=== PATIENT | female | born 1945 ===

== ENCOUNTER 2020-02-16 14:19 | Outpatient (REF) | payer OTHER, SELFPAY | END 2020-02-16 14:20 | disposition home or self-care (01) | LOC: HO.LAB 14:19 | PROVIDERS: Visit Provider Internal Medicine | DX: Z20.828 Contact with and (suspected) exposure to other viral communicable diseases (principal) | CPT/HCPCS: C9803; U0003 ==

== ENCOUNTER 2020-07-11 14:28 | Outpatient (REF) | payer OTHER, SELFPAY ==
[2020-07-11 14:51] LABS: COVID-19 Test Negative (Negative)
== END 2020-07-11 14:29 | disposition home or self-care (01) ==
LOC: HO.LAB 14:28
PROVIDERS: Visit Provider Internal Medicine
DX: Z20.822 Contact with and (suspected) exposure to COVID-19 (principal)
CPT/HCPCS: 36415; 87635; C9803

== ENCOUNTER 2020-10-09 11:08 | Outpatient (REF) | payer MEDICARE, SELFPAY ==
[2020-10-09 12:28] LABS: MANUAL DIFF FLAG NO
[2020-10-09 12:40] LABS: Basophils Percent Auto 0.6 % (0-2); Eosinophils Absolute Auto 0.1 X10*3/uL (0.0-0.4); Eosinophils Percent Auto 1.4 % (0-4); Hematocrit 41.1 % (37-47); Hemoglobin 12.8 g/dl (12.0-16.0); Imm Gran Abs Auto 0.01 X10*3/uL (0.00-0.03); Imm Gran Pct Auto 0.2 % (0.0-0.4); Lymphocytes Absolute Auto 1.8 X10*3/uL (1.2-4.9); Lymphocytes Percent Auto 36.5 % (20-40); Mean Corpuscular HGB Conc 31.1 g/dl (31.0-35.0); Mean Corpuscular Hemoglobin 29.7 pg (27.0-33.0); Mean Corpuscular Volume 95.4 fL (80-98); Mean Platelet Volume 10.2 fL (9.4-12.3); Monocytes Absolute Auto 0.5 X10*3/uL (0.1-1.2); Monocytes Percent Auto 10.5 % (2-11); Neutrophils Absolute Auto 2.5 X10*3/uL (2.0-8.3); Neutrophils Percent Auto 50.8 % (45-73); Platelet Count 260 X10*3/uL (160-400); Red Blood Count 4.31 X10*6/uL (4.20-5.50); Red Cell Distribution Width 12.3 % (11.0-16.0); White Blood Count 4.9 X10*3/uL (4.8-10.8)
== END 2020-10-09 11:09 | disposition home or self-care (01) ==
LOC: HO.LAB 11:08
PROVIDERS: Visit Provider Internal Medicine Pulmonary Disease
DX: Z91.09 Other allergy status, other than to drugs and biological substances (principal); J45.50 Severe persistent asthma, uncomplicated; Z79.899 Other long term (current) drug therapy
CPT/HCPCS: 36415; 82785; 85025; 86003; 99202

== ENCOUNTER 2020-11-12 09:44 | Outpatient (REF) | payer MEDICARE, SELFPAY ==
--- NOTE | 2020-11-12 14:57 | PFT_ITS ---
Forced vital capacity, FEV1, KKW37-90, and MVV are all markedly decreased. Post bronchodilator therapy, there is significant improvement in FVC, [id number], MVV, and FEV1. LUNG VOLUMES: The patient was not able to perform adequate maneuvers. Diffusion capacity is moderately decreased. CONCLUSION: Severe obstructive airway disorder. Partial reversibility after bronchodilator therapy is noted. Findings consistent with asthma/COPD overlap syndrome. MD KEVIN Britt/JACQUELYN / [id number]
== END 2020-11-12 09:45 | disposition home or self-care (01) ==
LOC: HO.RESP 09:44
PROVIDERS: Visit Provider Internal Medicine Pulmonary Disease
DX: J45.50 Severe persistent asthma, uncomplicated (principal); Z91.09 Other allergy status, other than to drugs and biological substances
CPT/HCPCS: 94060; 94729; 99212

== ENCOUNTER 2020-12-03 11:44 | Outpatient (REF) | payer MEDICARE, SELFPAY | END 2020-12-03 11:45 | disposition home or self-care (01) | LOC: HO.LAB 11:44 | PROVIDERS: Visit Provider Internal Medicine | DX: Z20.822 Contact with and (suspected) exposure to COVID-19 (principal) | CPT/HCPCS: C9803; U0003; U0005 ==

== ENCOUNTER 2020-12-13 11:59 | Outpatient (REF) | payer MEDICARE, SELFPAY | END 2020-12-13 12:00 | disposition home or self-care (01) | LOC: HO.MDS 11:59 | PROVIDERS: Visit Provider Internal Medicine Pulmonary Disease | DX: J45.50 Severe persistent asthma, uncomplicated (principal) | CPT/HCPCS: 96372; J2357 ==

== ENCOUNTER 2020-12-30 | Outpatient (REF) | payer MEDICARE, SELFPAY | END 2020-12-30 00:01 | disposition home or self-care (01) | LOC: CF | PROVIDERS: Visit Provider Internal Medicine Pulmonary Disease | DX: L29.9 Pruritus, unspecified (principal) | CPT/HCPCS: 99212 ==

== ENCOUNTER → 2021-02-12 11:25 | Outpatient (BNVA) | payer MEDICARE, SELFPAY | PROVIDERS: PCP Internal Medicine; Visit Provider Internal Medicine Pulmonary Disease | DX: J45.50 Severe persistent asthma, uncomplicated (principal) | CPT/HCPCS: 99212 ==

== ENCOUNTER 2021-09-23 11:31 | Outpatient (REF) | payer OTHER, SELFPAY ==
[2021-09-23 11:52] LABS: MANUAL DIFF FLAG NO
[2021-09-23 12:11] LABS: Basophils Percent Auto 0.6 % (0-2); Eosinophils Absolute Auto 0.1 X10*3/uL (0.0-0.4); Eosinophils Percent Auto 2.4 % (0-4); Hematocrit 41.4 % (37.0-47.0); Imm Gran Abs Auto 0.01 X10*3/uL (0.00-0.03); Imm Gran Pct Auto 0.2 % (0.0-0.4); Lymphocytes Absolute Auto 2.1 X10*3/uL (1.2-4.9); Lymphocytes Percent Auto 41.4 % (20-40); Mean Corpuscular HGB Conc 31.4 g/dl (31.0-35.0); Mean Corpuscular Hemoglobin 30.1 pg (27.0-33.0); Mean Corpuscular Volume 95.8 fL (80.0-98.0); Mean Platelet Volume 10.1 fL (9.4-12.3); Monocytes Absolute Auto 0.7 X10*3/uL (0.1-1.2); Neutrophils Absolute Auto 2.1 x10*3/uL (2.0-8.3); Neutrophils Percent Auto 42.4 % (45-73); Platelet Count 252 X10*3/uL (160-400); Red Blood Count 4.32 X10*6/uL (4.20-5.50); Red Cell Distribution Width 12.8 % (11.0-16.0)
== END 2021-09-23 11:32 | disposition home or self-care (01) ==
LOC: HO.LAB 11:31
PROVIDERS: Visit Provider Internal Medicine Pulmonary Disease
DX: J45.50 Severe persistent asthma, uncomplicated (principal); Z91.09 Other allergy status, other than to drugs and biological substances; Z79.899 Other long term (current) drug therapy
CPT/HCPCS: 36415; 85025; 86003; 99212

== ENCOUNTER 2021-10-21 09:18 | Outpatient (REF) | payer OTHER, SELFPAY | END 2021-10-21 09:19 | disposition home or self-care (01) | LOC: HO.MDS 09:18 | PROVIDERS: Visit Provider Internal Medicine Pulmonary Disease | DX: J82.83 Eosinophilic asthma (principal) | CPT/HCPCS: 96372; J2182 ==

== ENCOUNTER 2021-11-18 09:31 | Outpatient (REF) | payer OTHER, SELFPAY | END 2021-11-18 09:32 | disposition home or self-care (01) | LOC: HO.MDS 09:31 | PROVIDERS: Visit Provider Internal Medicine Pulmonary Disease | DX: J82.83 Eosinophilic asthma (principal) | CPT/HCPCS: 96372; J2182 ==

== ENCOUNTER 2021-12-16 09:26 | Outpatient (REF) | payer OTHER, SELFPAY | END 2021-12-16 09:27 | disposition home or self-care (01) | LOC: HO.MDS 09:26 | PROVIDERS: Visit Provider Internal Medicine Pulmonary Disease | DX: J82.83 Eosinophilic asthma (principal) | CPT/HCPCS: 96372; J2182 ==

== ENCOUNTER 2022-01-01 13:46 | Outpatient (REF) | payer OTHER, SELFPAY ==
[2022-01-01 14:42] LABS: Influenza A PCR NEGATIVE (Negative); Influenza B PCR NEGATIVE (Negative); Resp Syncy Virus RNA Qual PCR NEGATIVE (Negative); SARS COV2 PCR INHOUSE POSITIVE (Negative)
== END 2022-01-01 13:47 | disposition home or self-care (01) ==
LOC: HO.LNP 13:46
PROVIDERS: Visit Provider Internal Medicine
DX: R09.89 Other specified symptoms and signs involving the circulatory and respiratory systems (principal); Z20.822 Contact with and (suspected) exposure to COVID-19
CPT/HCPCS: 0241U

== ENCOUNTER 2022-01-13 10:30 | Outpatient (REF) | payer OTHER, SELFPAY | END 2022-01-13 10:31 | disposition home or self-care (01) | LOC: HO.MDS 10:30 | PROVIDERS: Visit Provider Internal Medicine Pulmonary Disease | DX: J82.83 Eosinophilic asthma (principal) | CPT/HCPCS: 96372; J2182 ==

== ENCOUNTER → 2022-01-19 10:36 | Outpatient (BNVA) | payer OTHER, SELFPAY | PROVIDERS: PCP Internal Medicine; Visit Provider Internal Medicine Pulmonary Disease | DX: J45.50 Severe persistent asthma, uncomplicated (principal); Z91.09 Other allergy status, other than to drugs and biological substances | CPT/HCPCS: 99212 ==

== ENCOUNTER 2022-02-10 10:43 | Outpatient (REF) | payer OTHER, SELFPAY | END 2022-02-10 10:44 | disposition home or self-care (01) | LOC: HO.MDS 10:43 | PROVIDERS: Visit Provider Internal Medicine Pulmonary Disease | DX: J82.83 Eosinophilic asthma (principal) | CPT/HCPCS: 96372; J2182 ==

== ENCOUNTER 2022-03-27 07:57 | Outpatient (REF) | payer OTHER, SELFPAY | END 2022-03-27 07:58 | disposition home or self-care (01) | LOC: HO.MDS 07:57 | PROVIDERS: Visit Provider Internal Medicine Pulmonary Disease | DX: J82.83 Eosinophilic asthma (principal) | CPT/HCPCS: 96372 ==

== ENCOUNTER 2022-04-24 10:08 | Outpatient (REF) | payer OTHER, SELFPAY | END 2022-04-24 10:09 | disposition home or self-care (01) | LOC: HO.MDS 10:08 | PROVIDERS: Visit Provider Internal Medicine Pulmonary Disease | DX: J82.83 Eosinophilic asthma (principal) | CPT/HCPCS: 96372 ==

== ENCOUNTER 2022-05-22 10:59 | Outpatient (REF) | payer OTHER, SELFPAY | END 2022-05-22 11:00 | disposition home or self-care (01) | LOC: HO.MDS 10:59 | PROVIDERS: Visit Provider Internal Medicine Pulmonary Disease | DX: J82.83 Eosinophilic asthma (principal) | CPT/HCPCS: 96372 ==

== ENCOUNTER 2022-06-04 11:14 | Outpatient (REF) | payer OTHER, SELFPAY ==
[2022-06-04 12:35] LABS: Influenza A PCR NEGATIVE (Negative); Influenza B PCR NEGATIVE (Negative); Resp Syncy Virus RNA Qual PCR NEGATIVE (Negative); SARS COV2 PCR INHOUSE NEGATIVE (Negative)
== END 2022-06-04 11:15 | disposition home or self-care (01) ==
LOC: HO.LNP 11:14
PROVIDERS: Visit Provider Internal Medicine
DX: Z20.822 Contact with and (suspected) exposure to COVID-19 (principal); R09.89 Other specified symptoms and signs involving the circulatory and respiratory systems
CPT/HCPCS: 0241U

== ENCOUNTER → 2022-06-09 09:38 | Outpatient (BNVA) | payer OTHER, SELFPAY | PROVIDERS: PCP Internal Medicine; Visit Provider Internal Medicine Pulmonary Disease | DX: J45.50 Severe persistent asthma, uncomplicated (principal); Z91.09 Other allergy status, other than to drugs and biological substances | CPT/HCPCS: 99212 ==

== ENCOUNTER → 2022-07-23 09:21 | Outpatient (BNVA) | payer OTHER, SELFPAY | PROVIDERS: PCP Internal Medicine; Visit Provider Internal Medicine Pulmonary Disease | DX: J45.50 Severe persistent asthma, uncomplicated (principal); Z91.09 Other allergy status, other than to drugs and biological substances; Z79.899 Other long term (current) drug therapy | CPT/HCPCS: 99212 ==

== ENCOUNTER 2023-01-28 10:08 | Outpatient (AMB) | payer OTHER, SELFPAY ==
--- NOTE | 2023-01-28 10:09 | MHC.OFFVIS ---
Intake Vital Signs 01/28/23 10:10 Height 5 ft Weight 159 lb 13.362 oz BMI 31.2 BP 122/67 Blood Pressure Location Rt brachial Position Sitting Pulse 90 Pulse Source Doppler Pulse Oximetry (%) 95 Oxygen Delivery Method Room Air Intake Visit Reasons: Asthma Haunted History Tour Guide Required: Yes Haunted History Tour Guide Name: Alexandra Toby Fleming Allergies Seasonal Allergies Allergy (Verified 01/28/23 10:12) Unknown HPI Asthma HPI Details 76-year-old lady, lifetime nonsmoker, followed for underlying severe persistent allergic asthma.? Patient has been tried on Xolair, however she has developed allergic reaction.? She has been switched to Nucala however she did have significant symptomatic response and she stopped using that. She has been using Trelegy and albuterol MDI with good control of her underlying asthma symptoms. She continues on Dymista for the allergic component. She does complain of recurrent sinusitis with worsening symptoms. She has not been evaluated by an ENT yet. [facility] Social History Patient Tobacco Use Status: Never used Tobacco Review of Systems Const Denies daytime sleepiness, Denies excessive sweating, Denies fatigue, Denies fever(s), Denies lethargy, Denies malaise, Denies night sweats, Denies snoring and Denies weight loss Eyes Denies blurry vision and Denies itchy eyes ENT Reports nasal congestion, Denies post nasal drip, Denies sinus pain, Reports sinus pressure and Denies other ( Thrush) Card Denies chest pain, Denies pedal edema, Denies dyspnea, Denies orthopnea and Denies paroxysmal nocturnal dyspnea Resp Denies cough, Denies hemoptysis, Denies excessive phlegm production, Denies dyspnea, Denies snoring and Denies wheezing GI Denies abdominal pain and Denies heartburn Musc Denies myalgias, Denies arthralgias and Denies joint swelling Skin/Breast Denies rash Neuro Denies memory loss and Denies seizure-like activity Psych Denies abnormal sleep pattern, Denies anxiety and Denies memory loss Endo Denies excessive sweating, Denies fatigue and Denies heat intolerance Noah/Lymph Denies easy bruising Aller/Immun Denies itchy eyes, Denies seasonal rhinorrhea and Denies wheezing Physical Exam Vital Signs: Last Vital Signs Pulse 90 01/28/23 10:10 BP 122/67 01/28/23 10:10 Pulse Ox 95 01/28/23 10:10 Oxygen Delivery Method Room Air 01/28/23 10:10 BMI result Body Mass Index 31.2 Const General: no acute distress and alert Nutritional Appearance: not obese Orientation/consciousness: Other orientation findings ( oriented) HEENT Head: Yes atraumatic Face and sinus: Yes sinus tenderness ( bilateral [id number]-left) Eyes General: appearance normal, both eyes and all related structures Sclerae: sclerae normal EOM: EOMs intact bilaterally Neck Neck: Yes supple Lymphatic: no lymphadenopathy noted Resp Effort & Inspection: normal respiratory effort and no use of accessory muscles Auscultation: clear to auscultation bilaterally Cardio Rate: regular rate Rhythm: regular rhythm Heart sounds: no gallops, no murmurs and no rubs Skin General skin exam: other ( warm) Extrem General: No clubbing, No cyanosis and No edema Assessment & Plan Assessment & Plan (1) Severe persistent allergic asthma: Code(s): J45.50 - Severe persistent asthma, uncomplicated Plan: well controlled on current regimen of Trelegy and albuterol MDI. Continue current regimen. (2) Environmental allergies: Code(s): Z91.09 - Other allergy status, other than to drugs and biological substances Plan: Reasonable control on Dymista. Continue current regimen. (3) Sinusitis: Code(s): J32.9 - Chronic sinusitis, unspecified Plan: Will treat with a 2 week course of Augmentin. Medications: New amoxicillin-pot clavulanate 875-125 mg 1 tab PO BID 14 days 28 tabs 0RF Coding Level of Care Code Est Pt Level 4 (23486) Diagnoses Severe persistent allergic asthma J45.50 Environmental allergies Z91.09 Sinusitis J32.9
[2023-01-28 10:10] VITALS: BP 122/67; PULSE 90; O2SAT 95; BMI 31.2
== END 2023-01-28 10:33 | disposition home or self-care (01) ==
PROVIDERS: PCP Internal Medicine; Visit Provider Internal Medicine Pulmonary Disease
DX: J45.50 Severe persistent asthma, uncomplicated (principal); Z91.09 Other allergy status, other than to drugs and biological substances; J32.9 Chronic sinusitis, unspecified
CPT/HCPCS: 99214

== ENCOUNTER → 2023-01-28 10:08 | Outpatient (BNVA) | payer OTHER, SELFPAY | PROVIDERS: PCP Internal Medicine; Visit Provider Internal Medicine Pulmonary Disease | DX: J45.50 Severe persistent asthma, uncomplicated (principal); J32.9 Chronic sinusitis, unspecified; Z91.09 Other allergy status, other than to drugs and biological substances | CPT/HCPCS: 99212 ==

== ENCOUNTER 2023-06-09 12:58 | Outpatient (AMB) | payer OTHER, SELFPAY ==
[2023-06-09 13:29] VITALS: BP 130/72; PULSE 101; TEMP 37.3; O2SAT 95; BMI 32.6
--- NOTE | 2023-06-09 13:29 | AM.OFFWIN_ITS ---
Intake Vital Signs 06/09/23 13:29 Height 5 ft Weight 167 lb 2 oz BMI 32.6 BP 130/72 Blood Pressure Location Lt brachial Position Sitting Pulse 101 H Pulse Source Pulse Oximeter Temp 99.1 F Temp Source Oral Pulse Oximetry (%) 95 Oxygen Delivery Method Room Air Intake Visit Reasons: stomach pain and blood in stool Intake Note: Pt presents to the office today for stomach pain that started 3 days ago. She states she has diverticulitis. She states she was hospitalized 1 month ago for the diverticulitis then. 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 Pt is a 77yo F who presents with abdominal complaint visit Hx of diverticulitis and anticoagulation use + a lot of abdominal pain with distentio n ongoing x 4 days Today pain is worse Pain level 9/10 Hurts in rectum and back + phlegm in stool Bowel movements loose; no brbpr but states it is black She has rectal bleeding in past with diverticulitis + fever of 99.1 here, + subjective at ho me as well No nausea or vomiting + lower extremity edema that she noticed bilaterally but denies CP or SOB PFSH Social History Patient Tobacco Use Status: Never used Tobacco Review of Systems Const Denies chills, Reports fatigue and Reports fever(s) ENT Denies nasal discharge and Denies sore throat Card Denies chest pain Resp Denies cough GI Reports abdominal pain, Reports melena, Reports loose stools, Denies nausea and Denies vomiting Musc Reports back pain Skin/Breast Denies rash Endo Reports fatigue Physical Exam Vital Signs: Last Vital Signs Temp 99.1 F 06/09/23 13:29 Pulse 101 H 06/09/23 13:29 BP 130/72 06/09/23 13:29 Pulse Ox 95 06/09/23 13:29 Oxygen Delivery Method Room Air 06/09/23 13:29 BMI result Body Mass Index 32.6 General: Non-toxic, NAD. Speaking full sentences. Skin: Warm dry throughout Eye: EOMI HENT: Airway patent. Uvula midline. No pharyngeal erythema or edema. No PAPER SAMPLE CLERK. Respiratory: CTA bilaterally. No wheezes, rales or rhonchi Cardiac: RRR. No murmur Abdominal: BS present x 4. + TTP LLQ. No rebound or guarding. No CVAT MSK: Full ROM extremities. Neurology: A. No aphasia or facial droop. Gait without abnormality Psych: Good mood and affect Assessment & Plan Assessment & Plan (1) Abdominal pain: Code(s): R10.9 - Unspecified abdominal pain Qualifiers: Abdominal location: left lower quadrant Qualified Code(s): R10.32 - Left lower quadrant pain Plan: Patient seen and evaluated. She is a 77yo F on Elaquis with abdominal pain and complaint of melena Expect called to [facility] ER per her request for further labs and imaging Daughter will bring her Plan discussed with pt with phone interpretter and she is in agreeance. Patient gave verbal understanding and had no additional questions or concerns at time of discharge All questions answered Coding Level of Care Code Est Pt Level 4 (31180) Diagnoses Left lower quadrant abdominal pain R10.32 Abdominal location: left lower quadrant
== END 2023-06-09 14:05 | disposition home or self-care (01) ==
PROVIDERS: PCP Internal Medicine; Visit Provider Physician Assistant
DX: R10.32 Left lower quadrant pain (principal)
CPT/HCPCS: 99214

== ENCOUNTER 2023-09-21 10:00 | Outpatient (AMB) | payer OTHER, SELFPAY ==
[2023-09-21 10:02] VITALS: BP 122/68; PULSE 85; O2SAT 93; BMI 32.3
--- NOTE | 2023-09-21 10:02 | MHC.OFFVIS ---
Vital Signs 09/21/23 10:02 Height 5 ft Weight 165 lb 5.547 oz BMI 32.3 BP 122/68 Blood Pressure Location Rt brachial Position Sitting Pulse 85 Pulse Source Doppler Pulse Oximetry (%) 93 Oxygen Delivery Method Room Air Intake Visit Reasons: Asthma Non Profit Job Titles Required: Yes Non Profit Job Titles Name: Alexandra Luis Bernadette Allergies Seasonal Allergies Allergy (Verified 09/21/23 10:09) Unknown HPI HPI Asthma: Details: 78-year-old lady, lifetime nonsmoker, followed for underlying severe persistent allergic asthma.? Patient has been tried on Xolair, however she has developed allergic reaction.? She has been switched to Nucala however she did not have significant symptomatic response and she stopped using that. She has been using Trelegy and albuterol MDI with reasonable control of her underlying asthma symptoms. She continues on Dymista for the allergic component. She denies acute exacerbations. [facility] Social History Patient Tobacco Use Status: Never used Tobacco Review of Systems Const Denies daytime sleepiness, Denies excessive sweating, Denies fatigue, Denies fever(s), Denies lethargy, Denies malaise, Denies night sweats, Denies snoring and Denies weight loss Eyes Denies blurry vision and Denies itchy eyes ENT Denies nasal congestion, Denies post nasal drip, Denies sinus pain, Denies sinus pressure and Denies other ( Thrush) Card Denies chest pain, Denies pedal edema, Denies dyspnea, Denies orthopnea and Denies paroxysmal nocturnal dyspnea Resp Denies cough, Denies hemoptysis, Denies excessive phlegm production, Denies dyspnea, Denies snoring and Denies wheezing GI Denies abdominal pain and Denies heartburn Musc Denies myalgias, Denies arthralgias and Denies joint swelling Skin/Breast Denies rash Neuro Denies memory loss and Denies seizure-like activity Psych Denies abnormal sleep pattern, Denies anxiety and Denies memory loss Endo Denies excessive sweating, Denies fatigue and Denies heat intolerance Noah/Lymph Denies easy bruising Aller/Immun Denies itchy eyes, Denies seasonal rhinorrhea and Denies wheezing Physical Exam Vital Signs: Last Vital Signs Pulse 85 09/21/23 10:02 BP 122/68 0709/24 10:02 Pulse Ox 93 09/21/23 10:02 Oxygen Delivery Method Room Air 09/21/23 10:02 BMI result Body Mass Index 32.3 Const General: no acute distress and alert Nutritional Appearance: not obese Orientation/consciousness: Other orientation findings ( oriented) HEENT Head: Yes atraumatic Eyes General: appearance normal, both eyes and all related structures Sclerae: sclerae normal EOM: EOMs intact bilaterally Neck Neck: Yes supple Lymphatic: no lymphadenopathy noted Resp Effort & Inspection: normal respiratory effort and no use of accessory muscles Auscultation: clear to auscultation bilaterally Cardio Rate: regular rate Rhythm: regular rhythm Heart sounds: no gallops, no murmurs and no rubs Skin General skin exam: other ( warm) Extrem General: No clubbing, No cyanosis and No edema Assessment & Plan Assessment & Plan (1) Severe persistent allergic asthma: Code(s): J45.50 - Severe persistent asthma, uncomplicated Category: Medical Plan: Suboptimal control on trilogy and albuterol MDI. Previously on Xolair, however developed allergic reaction, poor response to Nucala, will request Tezspire. (2) Environmental allergies: Code(s): Z91.09 - Other allergy status, other than to drugs and biological substances Category: Medical Plan: Suboptimal control on Dymista and Singulair. Will request Tezspire approval. Orders: Orders Resp Allergy Profile Region I Today Z91.09 - Other allergy status, other than to drugs and biological substances Coding Level of Care Code Est Pt Level 4 (40366) Diagnoses Severe persistent allergic asthma J45.50 Environmental allergies Z91.09
[2023-09-21 10:41] VITALS: PULSE 63; O2SAT 95
== END 2023-09-21 10:28 | disposition home or self-care (01) ==
PROVIDERS: PCP Internal Medicine; Visit Provider Internal Medicine Pulmonary Disease
DX: J45.50 Severe persistent asthma, uncomplicated (principal); Z91.09 Other allergy status, other than to drugs and biological substances
CPT/HCPCS: 94618; 99214

== ENCOUNTER → 2023-09-21 10:00 | Outpatient (BNVA) | payer OTHER, SELFPAY | PROVIDERS: PCP Internal Medicine; Visit Provider Internal Medicine Pulmonary Disease | DX: J45.50 Severe persistent asthma, uncomplicated (principal); Z91.09 Other allergy status, other than to drugs and biological substances | CPT/HCPCS: 94618; 99212 ==

== ENCOUNTER 2023-12-23 10:15 | Outpatient (AMB) | payer OTHER, SELFPAY ==
[2023-12-23 10:21] VITALS: BP 122/67; PULSE 73; O2SAT 93; BMI 32.9
--- NOTE | 2023-12-23 10:21 | A.OFFVIS_ITS ---
Vital Signs 12/23/23 10:21 Height 5 ft Weight 168 lb 10.458 oz BMI 32.9 BP 122/67 Blood Pressure Location Rt brachial Position Sitting Pulse 73 Pulse Source Doppler Pulse Oximetry (%) 93 Oxygen Delivery Method Room Air Intake Visit Reasons: Asthma Pantograph Watcher Required: Yes Pantograph Watcher Name: Alexandra Luis Bernadette Allergies Seasonal Allergies Allergy (Verified 09/21/23 10:09) Unknown HPI HPI Asthma: Details: 78-year-old lady, lifetime nonsmoker, followed for underlying severe persistent allergic asthma.? Patient has been tried on Xolair, however she has developed allergic reaction.? She has been switched to Nucala however she did not have si gnificant symptomatic response and she stopped using that. After the last office visit she was started on Tezspire and reports significantly improved symptom control. She has been using Trelegy and albuterol MDI. She continues on Dymista for the allergic component. She denies acute exacerbations. Patient is also undergoing cardiac workup. [facility] Social History (Reviewed 09/21/23 @ 10:10 by Alexandra Wu COUNTS INCLUDE 234 BEDS AT THE [facility]) Patient Tobacco Use Status: Never used Tobacco Review of Systems Const Denies daytime sleepiness, Denies excessive sweating, Denies fatigue, Denies fever(s), Denies lethargy, Denies malaise, Denies night sweats, Denies snoring and Denies weight loss Eyes Denies blurry vision and Denies itchy eyes ENT Denies nasal congestion, Denies post nasal drip, Denies sinus pain, Denies sinus pressure and Denies other ( Thrush) Card Denies chest pain, Denies pedal edema, Denies dyspnea, Denies orthopnea and Denies paroxysmal nocturnal dyspnea Resp Denies cough, Denies hemoptysis, Denies excessive phlegm production, Denies dyspnea, Denies snoring and Denies wheezing GI Denies abdominal pain and Denies heartburn Musc Denies myalgias, Denies arthralgias and Denies joint swelling Skin/Breast Denies rash Neuro Denies memory loss and Denies seizure-like activity Psych Denies abnormal sleep pattern, Denies anxiety and Denies memory loss Endo Denies excessive sweating, Denies fatigue and Denies heat intolerance Noah/Lymph Denies easy bruising Aller/Immun Denies itchy eyes, Denies seasonal rhinorrhea and Denies wheezing Physical Exam Vital Signs: Last Vital Signs Pulse 73 12/23/23 10:21 BP 122/67 12/23/23 10:21 Pulse Ox 93 12/23/23 10:21 Oxygen Delivery Method Room Air 12/23/23 10:21 BMI result Body Mass Index 32.9 Const General: no acute distress and alert Nutritional Appearance: not obese Orientation/consciousness: Other orientation findings ( oriented) HEENT Head: Yes atraumatic Eyes General: appearance normal, both eyes and all related structures Sclerae: sclerae normal EOM: EOMs intact bilaterally Neck Neck: Yes supple Lymphatic: no lymphadenopathy noted Resp Effort & Inspection: normal respiratory effort and no use of accessory muscles Auscultation: clear to auscultation bilaterally Cardio Rate: regular rate Rhythm: regular rhythm Heart sounds: no gallops, no murmurs and no rubs Skin General skin exam: other ( warm) Extrem General: No clubbing, No cyanosis and No edema Assessment & Plan Assessment & Plan (1) Severe persistent allergic asthma: Code(s): J45.50 - Severe persistent asthma, uncomplicated Category: Medical Plan: Significantly improved control after starting on Tezspire. Continue Tezspire, trilogy, duo nebs, and albuterol MDI. (2) Environmental allergies: Code(s): Z91.09 - Other allergy status, other than to drugs and biological substances Category: Medical Plan: Significantly improved control on Tezspire. Continue Tezspire, Dymista, and Singulair. Coding Level of Care Code Est Pt Level 4 (06405) Diagnoses Severe persistent allergic asthma J45.50 Environmental allergies Z91.09
== END 2023-12-23 10:33 | disposition home or self-care (01) ==
PROVIDERS: PCP Internal Medicine; Visit Provider Internal Medicine Pulmonary Disease
DX: J45.50 Severe persistent asthma, uncomplicated (principal); Z91.09 Other allergy status, other than to drugs and biological substances
CPT/HCPCS: 99214

== ENCOUNTER → 2023-12-23 10:15 | Outpatient (BNVA) | payer OTHER, SELFPAY | PROVIDERS: PCP Internal Medicine; Visit Provider Internal Medicine Pulmonary Disease | DX: J45.50 Severe persistent asthma, uncomplicated (principal); Z91.09 Other allergy status, other than to drugs and biological substances | CPT/HCPCS: 99212 ==

== ENCOUNTER 2024-05-03 13:00 | Outpatient (AMB) | payer OTHER, SELFPAY ==
--- OUTSIDE RECORDS SUMMARY | 2024-05-03 13:14 | XMS_ITS | Clinical Summary ---
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 4 Active albuterol HFA (PROAIR HFA ; PROVENTIL HFA ; VENTOLIN HFA) 90 mcg/actuation inhaler Inhale 2 Puffs into the lungs every 4 hours as needed for Cough or Wheezing. 8 Active ALPRAZolam (XANAX) 1 mg tablet Take 1 tablet (1 mg total) by mouth at bedtime as needed (sleep). 1 Active apixaban (ELIQUIS) 5 mg tablet Take 1 tablet (5 mg total) by mouth every 12 (twelve) hours. 4 Active traZODone (DESYREL) 50 mg tablet Take 1 tablet (50 mg total) by mouth at bedtime. Active venlafaxine XR (EFFEXOR-XR) 75 mg 24 hr capsule Take 1 capsule (75 mg total) by mouth 2 (two) times a day. 1 Active venlafaxine XR (EFFEXOR-XR) 150 mg 24 hr capsule Take 1 capsule (150 mg total) by mouth 1 (one) time each day. 1 Active cyanocobalamin (VITAMIN B-12) 500 mcg tablet Take 1 tablet (500 mcg total) by mouth 1 (one) time each day. Active cholecalciferol (VITAMIN D-3) 25 mcg (1,000 unit) tablet Take 2 tablets (2,000 Units total) by mouth 1 (one) time each day. Active cephalexin (KEFLEX) 500 mg capsule Take 1 capsule (500 mg total) by mouth. 4 Active omeprazole (PriLOSEC) [address] capsule TAKE 1 CAPSULE BY MOUTH EVERY DAY 90 capsule 4 Active atorvastatin (LIPITOR) 40 mg tablet Take 1 tablet (40 mg total) by mouth 1 (one) time each day. 90 each 2 5 Active dilTIAZem CD (CARDIZEM CD) 120 mg 24 hr capsuleIndication s:Paroxysmal atrial fibrillation (CMS/HCC) Take 1 capsule (120 mg total) by mouth 2 (two) times a day. 60 each 11 5 04/17/19 26 Active zolpidem (AMBIEN) 10 mg tablet Take 1 tablet (10 mg total) by mouth at bedtime as needed for sleep. 1 04/17/19 25 Discontinu ed(Patient Discharge) dilTIAZem XR (DILACOR XR) 240 mg 24 hr capsule Take 1 capsule (240 mg total) by mouth 1 (one) time each day. 90 capsule 1 5 04/17/19 25 Discontinu ed(Dose adjustment ) Active Problems Problem Noted Date Diagnosed Date Syncope 12/08/2023 Overview (02/27/2024): Last Assessment & Plan: The patient had an episode of syncope in September 2023. She was treated at [facility]. At the time, it was thought that her syncope was secondary to benzodiazepine use. However, the patient does have a history of arrhythmias in the form of paroxysmal atrial fibrillation. As such, cardiac monitoring is indicated. Will proceed with a 30-day ambulatory clinical research monitor to rule out any arrhythmias or pauses that may have been associated with her episode of syncope. Will also order an echocardiogram to rule out any underlying structural heart disease given her episode of syncope. 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 CKD (chronic kidney disease) stage 3, GFR 30-59 ml/min 08/01/2020 Prediabetes 08/01/2020 Overview (02/27/2024): HA1c of 5.7% Vitamin D insufficiency 08/01/2020 External hemorrhoid 2018 Pure hypercholesterolemia 01/12/2017 Anxiety 03/02/2016 Asthma 02/22/2015 Overview (02/27/2024): Patient follows with Dr. Hamilton but last seen 2011 HTN (hypertension) 08/17/2014 Glomerulonephritis 07/28/2013 IBS (irritable bowel syndrome) 06/05/2011 Diverticulosis 07/16/2010 Overview (02/27/2024): Incidental at CN 2006. Hiatal hernia 04/29/2010 Overview (02/27/2024): 4 cm hiatal hernia at EGD 04/29/2010. Assessment & Plan (04/17/2024 1:25 PM EST): GERD (gastroesophageal reflux disease) 0 Overview (02/27/2024): Negative EGD 2010. Lung nodule 04/19/2008 Overview (02/27/2024): CXR negative, 12/03/10 Depression 01/19/2008 Overview (02/27/2024): F/u Dr. Bolton Osteopenia 01/19/2008 Overview (02/27/2024): 12/2010: T-score lumbar (-1.0); hip (-0.4) 02/2018: T-score lumbar (-1.3); hip (-0.7); FRAX score 4.9%?? 09/2020: T-score lumbar (-1.2); hip (-0.6); FRAX score 7.8%?? 04/07 T score spine -1.6 hip -0.6 FRAX score 8.3% 10 year fracture risk Resolved Problems Problem Noted Date Diagnosed Date Resolved Date Hyperlipidemia LDL goal <100 02/27/2024 03/01/2024 Chronic respiratory failure 09/24/2023 04/17/2024 Chest pain 05/12/2023 04/17/2024 Overview (02/27/2024): Negative ETT 07/06 Encounters Date Type Department Care Team Description 04/25/2024 1:00 PM EST Office Visit Gastroenterology - [place] 175 [facility] [address] [facility] [address] [place] [address] Marques Amaya, PA Iron deficiency anemia, unspecified iron deficiency anemia type (Primary Dx); PAF (paroxysmal atrial fibrillation) (CMS/HCC); Vitamin B 12 deficiency; Chronic gastritis without bleeding, unspecified gastritis type; Diverticulosis; Hiatal hernia 04/24/2024 10:56 AM EST - 04/24/2024 11:59 PM EST Hospital Encounter CT Scan [address] [place] [address] Lung nodule Discharge Disposition: Home or Self Care 04/17/2024 1:00 PM EST Office Visit [facility] [address] [place] [address] Phillip Cabral MD Paroxysmal atrial fibrillation (CMS/HCC) (Primary Dx); Hiatal hernia 04/05/2024 Telephone [facility] - [address] [place] [address] Phillip Cabral MD 04/05/2024 Telephone [facility] - [address] [place] [phone] Phillip Cabral MD Cardiac Test Results 03/21/2024 Telephone [facility] [address] [place] [address] [place] [address] Ayde Ocampo NP lab results 03/17/2024 Telephone [place] [address] [place] [address] Phillip Cabral MD Med Refill (Dosage ); dosage (Dosage ) 03/09/2024 10:30 AM EST Ancillary Procedure [facility] - [address] [place] [address] Paroxysmal atrial fibrillation (CMS/HCC); Other chest pain 03/01/2024 9:45 AM EST Office Visit Adult Medicine [address] [address] Estrellita Meadows MD Moderate persistent asthma without complication (Primary Dx); Longstanding persistent atrial fibrillation (CMS/HCC); Primary hypertension; Prediabetes; Pure hypercholesterolemia; Gastroesophageal reflux disease without esophagitis 02/18/2024 10:45 AM EST Office Visit Pulmonolgy - [place] [address] [facility] [address] [place] [address] Shefali García MD Lung nodule (Primary Dx); COPD with asthma (CMS/HCC); GINNA (obstructive sleep apnea); Obesity hypoventilation syndrome ([facility]/HCC) from Last 3 Months Immunizations Name Administration Dates Next Due H1N1 Inj Preservative Free 04/05/2009 Influenza Quadravalent, 0.5m l (Fluzone High-dose) 65yo and older 12/25/2021,11/11/2020,12/11/2019 Influenza Quadrivalent, 0.5m l, preservative free (Fluarix; FluLaval; Fluzone) ages 6mo and older (Afluria) 3yo and older 12/16/2018 Influenza trivalent, 0.5mL ( Fluad) 65yo and older 11/13/2020,12/09/2016 Influenza trivalent, 0.5mL ( Fluzone High-dose) 65yo and older 12/08/2023,11/17/2022,11/11/2017,12/29 Influenza trivalent, with pr eservative (Fluzone; Afluria) 6mo and older 02/22/2015,11/19/2012,11/20/2011,12/16,11/27/2009,12/11/2008,01/19/2008 ,12/24/2006,02/16/2006 Pneumococcal conjugate 13 va lent (Prevnar 13, PCV13) 2mo and older 03/02/2016 Pneumococcal polysaccharide 23 valent (Pneumovax 23) 2yo and older 12/16/2018,05/10/2018,12/11/2008,09/19 RSV, bivalent, protein subun it RSVpreF, 0.5mL, Preservative Free (ABRYSVO) 60yo and older or 32 through 36 wks of 12/08/2023 Td Tetanus diptheria (Tdvax) 7yo and older 06/02/2005 Tdap Tetanus diptheria acell ular pertussis (Boostrix; Adacel) 7yo and older 12/16/2018 Zoster recombinant (Shingrix ) 19yo and older 10/26/2019,01/26/2019 Surgical History Surgery Date Site/Laterality Comments COLONOSCOPY 08/04/2001 Up to cecum, good preparation, nodule-bx: hyperplastic, hemorrhoids. COLONOSCOPY 02/16/2007 Up to cecum, regular preparation, mild sigmoid diverticulosis ESOPHAGOGASTRODUODENOSCOPY 08/31/2006 : Small hiatal hernia, Ramírez's esophagus was suspected, but the bx do not show ramírez's ESOPHAGOGASTRODUODENOSCOPY 04/29/2010 4 cm hiatal hernia, no esophagitis. BREAST REDUCTION 2005 ESOPHAGOGASTRODUODENOSCOPY 05/2015 small hiatal hernia COLONOSCOPY 10/26/2016 mild diverticulosis, int and ext hemorrhoids, no repeat due to age COLONOSCOPY 10/26/2016 At [facility], sigmoid diverticulosis, no polyps. No repeat needed ESOPHAGOGASTRODUODENOSCOPY 07/16/2021 esophageal erosion and hiatal hernia. biopsy consistent with reflux COLONOSCOPY ESOPHAGOGASTRODUODENOSCOPY SCREENING MAMMOGRAM 03/18/2023 Bilateral Medical History Medical History Date Comments Essential hypertension, benign GERD (gastroesophageal reflux disease) 0 Hiatal hernia 04/29/2010 Diverticulosis 07/16/2010 IBS (irritable bowel syndrome) 06/05/2011 Achilles tendonitis 11/14/2013 Asthma 08/27/[address] Hamilton Anxiety 03/02/2016 DX:Anxiety Pure hypercholesterolemia 01/12/2017 Hematuria Lower GI bleed 05/18/202305/08 diverticula r bleed, banded Colon polyp 05/18/2023 : 05/08 serrated polyp removed Hypertension Depression GI bleed Anxiety DX:Anxiety Atrial fibrillation (CMS/HCC) Fibromyalgia Vitamin D deficiency Osteopenia Pulmonary nodule Family History Medical History Relation Name Comments Glaucoma Aunt Cancer Brother Emphysema Father Alcohol abuse Mother Glaucoma Sister Breast cancer Neg Hx Colon cancer Neg Hx Ovarian cancer Neg Hx Relation Name Status Comments Aunt Brother Father Mother Sister Alive Social History Tobacco Use Types Packs/Day Years Used Date Smoking Tobacco: Never Smokeless Tobacco: Never Tobacco Cessation:Counseling Given: Not Answered Alcohol Use Standard Drinks/Week Comments Not Currently 0 (1 standard drink = 0.6 oz pur e alcohol) Comments Unknown Sex and Gender Information Value Date Recorded Sex Assigned at Female 03/24/2024 3:57 PM EST Legal Sex Female 1:55 AM EST Gender Identity Female 03/24/2024 3:57 PM EST Sexual Orientation Straight 03/24/2024 3: 57 PM EST Obstetrics History Last Filed Vital Signs Vital Sign Reading Time Taken Comments Blood Pressure 130/74 04/25/2024 1:05 PM EST Pulse 87 04/25/2024 1:05 PM EST Temperature 36.3 ??C (97.4 ??F) 03/01/2024 9:41 AM ES T Respiratory Rate 16 03/01/2024 9:41 AM EST Oxygen Saturation 93% 04/25/2024 1:05 PM EST Inhaled Oxygen Concentration - - Weight 76.2 kg (168 lb) 04/25/2024 1:05 PM EST Height 152.4 cm (5') 04/25/2024 1:05 PM EST Body Mass Index 32.81 04/25/2024 1:05 PM EST Plan of Treatment Upcoming Encounters Date Type Department Care Team (Late st Contact Info) Description 05/10/2024 2:00 PM EST Office Visit Pulmonolgy - [place] 175 [facility] 200 [place] [phone] Shefali García MD [address] [address] 06/13/2024 10:45 AM EDT Office Visit Hematology Oncology [address] [place] [address] Lee Berkowitz MD [address] [place] [address] 07/04/2024 10:00 AM EDT Office Visit [facility] - [address] [phone] Millicent Dumont [place] [address] [place] [address] 07/19/2024 1:15 PM EDT Office Visit Nephrology - [address] [phone] Orestes Harris MD 100 [facility] 200 [place] [phone] 09/06/2024 2:30 PM EDT Office Visit [facility] - [address] [place] [address] Phillip Cabral MD [address] [place] [address] [address] [place] [address] Health Maintenance Due Date Last Done Comments Depression Screening 02/21/2022 Falls Risk Assessment 02/21/2022 Hepatitis C Screening 02/21/2022 Medicare Annual Wellness Visit 02/21/2022 Social Influencers of Health Screening 02/21/2022 Hypertension/CHF/CAD Annual BMP Blood Test 04/25/2025 04/25/2024, 03/14/2024, 12/28/2023, Additional history exists DTaP,Tdap,and Td Vaccines (3 - Td or Tdap) 12/16/2028 12/16/2018, 06/02/2005 Cholesterol Screening (Lipid Panel) 03/14/2029 03/14/2024, 03/01/2024 Osteoporosis Screening (Bone Density Screening) 03/18/2033 03/18/2023, 10/02/2020, 02/22/2018 Pneumococcal Vaccine: 50+ Years Completed 12/16/2018, 05/10/2018, 03/02/2016, Additional history exists Zoster Vaccines Completed 10/26/2019, 01/26/2019 COVID-19 Vaccine Completed 12/08/2023, , 08/26/2021, Additional history exists Influenza Vaccine Completed 12/08/2023, , 12/25/2021, Additional history exists RSV Immunization Patients 60+ Years Old Completed 12/08/2023 HIB Vaccines Aged Out No longer eligi ble based on patient's age to complete this topic HPV Vaccines Aged Out No longer eligi ble based on patient's age to complete this topic Hepatitis A Vaccines Aged Out No long er eligible based on patient's age to complete this topic Hepatitis B Vaccines Aged Out No long er eligible based on patient's age to complete this topic IPV Vaccines Aged Out No longer eligi ble based on patient's age to complete this topic MMR Vaccines Aged Out No longer eligi ble based on patient's age to complete this topic Meningococcal ACWY Vaccine Aged Out N o longer eligible based on patient's age to complete this topic Meningococcal B Vacine Aged Out No lo nger eligible based on patient's age to complete this topic RSV Immunization Patients Under 20 months Aged Out No longer eligible based on patient's age to complete this topic Varicella Vaccines Aged Out No longer eligible based on patient's age to complete this topic Procedures Procedure Name Priority Date/Time Associated Diagnosis Comments CBC WITH AUTO DIFFERENTIAL Routine 04/25/2024 1:43 PM EST Iron deficiency anemia, unspecified iron deficiency anemia type PAF (paroxysmal atrial fibrillation) (CMS/HCC) Vitamin B 12 deficiency Chronic gastritis without bleeding, unspecified gastritis type IRON Routine 04/25/2024 1:43 PM EST Iron deficiency anemia, unspecified iron deficiency anemia type PAF (paroxysmal atrial fibrillation) (CMS/HCC) Vitamin B 12 deficiency Chronic gastritis without bleeding, unspecified gastritis type FERRITIN Routine 04/25/2024 1:43 PM EST Iron deficiency anemia, unspecified iron deficiency anemia type PAF (paroxysmal atrial fibrillation) (CMS/HCC) Vitamin B 12 deficiency Chronic gastritis without bleeding, unspecified gastritis type COMPREHENSIVE METABOLIC PANEL Routine 04/25/2024 1:43 PM EST Iron deficiency anemia, unspecified iron deficiency anemia type PAF (paroxysmal atrial fibrillation) (CMS/HCC) Vitamin B 12 deficiency Chronic gastritis without bleeding, unspecified gastritis type CBC AND DIFFERENTIAL Routine 04/25/2024 1:43 PM EST Iron deficiency anemia, unspecified iron deficiency anemia type PAF (paroxysmal atrial fibrillation) (CMS/HCC) Vitamin B 12 deficiency Chronic gastritis without bleeding, unspecified gastritis type VITAMIN B12 Routine 04/25/2024 1:43 PM EST Iron deficiency anemia, unspecified iron deficiency anemia type PAF (paroxysmal atrial fibrillation) (CMS/HCC) Vitamin B 12 deficiency Chronic gastritis without bleeding, unspecified gastritis type CT CHEST WO CONTRAST Routine 04/24/2024 11:08 AM EST Lung nodule CBC WITH AUTO DIFFERENTIAL Routine 03/14/2024 1:38 PM EST Chest pain Lung nodule Colon polyp Hiatal hernia Moderate persistent asthma without complication Syncope B12 deficiency Diverticulosis B-TYPE NATRIURETIC PEPTIDE Routine 03/14/2024 1:38 PM EST Chest pain Lung nodule Colon polyp Hiatal hernia Moderate persistent asthma without complication Syncope B12 deficiency Diverticulosis MAGNESIUM Routine 03/14/2024 1:38 PM EST Chest pain Lung nodule Colon polyp Hiatal hernia Moderate persistent asthma without complication Syncope B12 deficiency Diverticulosis COMPREHENSIVE METABOLIC PANEL Routine 03/14/2024 1:38 PM EST Chest pain Lung nodule Colon polyp Hiatal hernia Moderate persistent asthma without complication Syncope B12 deficiency Diverticulosis LIPID PANEL WITH REFLEX TO DIRECT LDL Routine 03/14/2024 1:38 PM EST Chest pain Lung nodule Colon polyp Hiatal hernia Moderate persistent asthma without complication Syncope B12 deficiency Diverticulosis VITAMIN B12 Routine 03/14/2024 1:38 PM EST Chest pain Lung nodule Colon polyp Hiatal hernia Moderate persistent asthma without complication Syncope B12 deficiency Diverticulosis CBC AND DIFFERENTIAL Routine 03/14/2024 1:38 PM EST Chest pain Lung nodule Colon polyp Hiatal hernia Moderate persistent asthma without complication Syncope B12 deficiency Diverticulosis CARDIAC MULTI SITE LEASING CONSULTANT W/ CONNECTION Routine 03/13/2024 6:48 PM EST Syncope, unspecified syncope type TRANSTHORACIC ECHOCARDIOGRAM (TTE) COMPLETE Routine 03/09/2024 11:10 AM EST Paroxysmal atrial fibrillation (CMS/HCC) Other chest pain CBC WITH AUTO DIFFERENTIAL Routine 03/01/2024 10:16 AM EST Iron deficiency anemia due to chronic blood loss Vitamin B12 deficiency CBC AND DIFFERENTIAL Routine 03/01/2024 10:16 AM EST Iron deficiency anemia due to chronic blood loss Vitamin B12 deficiency VITAMIN B12 AND FOLATE Routine 03/01/2024 10:16 AM EST Iron deficiency anemia due to chronic blood loss Vitamin B12 deficiency LIPID PANEL WITH REFLEX TO DIRECT LDL Routine 03/01/2024 10:16 AM EST Pure hypercholesterolemia HEMOGLOBIN A1C Routine 03/01/2024 10:16 AM EST Prediabetes IRON AND TIBC Routine 03/01/2024 10:16 AM EST Iron deficiency anemia due to chronic blood loss FERRITIN Routine 03/01/2024 10:16 AM EST Iron deficiency anemia due to chronic blood loss DXA BONE DENSITY STUDY 1+ SITS AXIAL SKEL Routine 03/18/2023 9:50 AM EST Other specified disorders of bone density and structure, multiple sites from Last 3 Months or Most Recently Relevant to Health Maintenance Results * (ABNORMAL) CBC auto differential (04/25/2024 1:43 PM EST) Only the most recent of3 resultswithin the time period is included. WBC 6.7 4.8 - 10.8 K/mcL LAB HEMETOLOGY METHOD 04/25/2024 6:35 PM [facility] RBC 4.60 3.80 - 4.80 M/[facility] LAB HEMETOLOGY METHOD 04/25/2024 6:35 PM [facility] Hemoglobin 14.0 11.5 - 16.0 g/dL LAB HEMETOLOGY METHOD 04/25/2024 6:35 PM [facility] Hematocrit 46.7 35.0 - 47.0 % LAB HEMETOLOGY METHOD 04/25/2024 6:35 PM [facility] MCV 100.9(H) 79.0 - 98.0 FL LAB HEMETOLOGY METHOD 04/25/2024 6:35 PM [facility] MCH 30.2 27.0 - 32.0 pcg LAB HEMETOLOGY METHOD 04/25/2024 6:35 PM [facility] MCHC 30.0(L) 32.0 - 37.0 g/dL LAB HEMETOLOGY METHOD 04/25/2024 6:35 PM [facility] RDW 14.2 11.0 - 15.0 % LAB HEMETOLOGY METHOD 04/25/2024 6:35 PM [facility] Platelets 199 130 - 400 K/mcL LAB HEMETOLOGY METHOD 04/25/2024 6:35 PM [facility] MPV 10.9 7.0 - 11.0 FL LAB HEMETOLOGY METHOD 04/25/2024 6:35 PM [facility] NRBC 0.0 <1.0 % LAB HEMETOLOGY METHOD 04/25/2024 6:35 PM [facility] NRBC Absolute 0.00 <0.10 K/mcL LAB HEMETOLOGY METHOD 04/25/2024 6:35 PM [facility] Neutrophils Relative 55.5 % LAB HEMETOLOGY METHOD 04/25/2024 6:35 PM [facility] Lymphocytes Relative 33.6 % LAB HEMETOLOGY METHOD 04/25/2024 6:35 PM [facility] Monocytes Relative 9.0 % LAB HEMETOLOGY METHOD 04/25/2024 6:35 PM [facility] Eosinophils Relative 1.5 % LAB HEMETOLOGY METHOD 04/25/2024 6:35 PM [facility] Basophils Relative 0.3 % LAB HEMETOLOGY METHOD 04/25/2024 6:35 PM [facility] Immature Granulocytes Relative 0.1 % LAB HEMETOLOGY METHOD 04/25/2024 6:35 PM [facility] Neutrophils Absolute 3.70 1.50 - 7.00 K/mcL LAB HEMETOLOGY METHOD 04/25/2024 6:35 PM [facility] Lymphocytes Absolute 2.24 1.00 - 5.00 K/mcL LAB HEMETOLOGY METHOD 04/25/2024 6:35 PM [facility] Monocytes Absolute 0.60 0.20 - 1.00 K/mcL LAB HEMETOLOGY METHOD 04/25/2024 6:[address] [facility] Eosinophils Absolute 0.10 0.00 - 0.50 K/mcL LAB HEMETOLOGY METHOD 04/25/2024 6:[address] [facility] Basophils Absolute 0.02 0.00 - 0.20 K/mcL LAB HEMETOLOGY METHOD 04/25/2024 6:[address] [facility] Immature Granulocytes Absolute 0.01 0.00 - 0.03 K/[facility] LAB HEMETOLOGY METHOD 04/25/2024 6:[address] [facility] Blood Venous blood specimen / Unknown Venipuncture / Unknown 04/25/2024 1:43 PM EST 04/25/2024 1:43 PM EST us Marques Amaya [place] LAB BLOOD ORDERABLES Final Resu lt Performing Organization Address City/[facility]/ZIP Co de Phone Number [facility] [address] [place] [address], [place] [phone] * Iron (04/25/2024 1:43 PM EST) [facility] Iron 82 40 - 150 mcg/dL LAB CHEMISTRY METHOD 04/25/2024 7:[address] [facility] Blood Venous blood specimen / Unknown Venipuncture / Unknown 04/25/2024 1:43 PM EST 04/25/2024 1:43 PM EST us Marques Bardaless [place] LAB BLOOD ORDERABLES Final Resu lt [facility] [address] [place] [address], [place] [phone] * Ferritin (04/25/2024 1:43 PM EST) Only the most recent of2 resultswithin the time period is included. [facility] Ferritin 48 8 - 252 ng/mL LAB CHEMISTRY METHOD 04/25/2024 7:[address] [facility] Blood Venous blood specimen / Unknown Venipuncture / Unknown 04/25/2024 1:43 PM EST 04/25/2024 1:43 PM EST Marqueslaron GRIFFITHS LAB BLOOD ORDERABLES Final Resu lt Performing Organization Address City/[facility]/ZIP Co de Phone Number [facility] [address] [place] [address], [place] [phone] * Vitamin B12 (04/25/2024 1:43 PM EST) Only the most recent of2 resultswithin the time period is included. [facility] Vitamin B-12 397 250 - 900 pcg/mL LAB CHEMISTRY METHOD 04/25/2024 7:[address] [facility] Blood Venous blood specimen / Unknown Venipuncture / Unknown 04/25/2024 1:43 PM EST 04/25/2024 1:43 PM EST us Marques GRIFFITHS LAB BLOOD ORDERABLES Final Resu lt Performing Organization Address [facility] de Phone Number [facility] [address] [place] [address], [place] [phone] * (ABNORMAL) Comprehensive metabolic panel (04/25/2024 1:43 PM EST) Only the most recent of2 resultswithin the time period is included. [facility] Sodium 136 133 - 145 mmol/L LAB CHEMISTRY METHOD 04/25/2024 7:[address] [facility] Potassium 4.5 3.5 - 5.5 mmol/L LAB CHEMISTRY METHOD 04/25/2024 7:17 PM [facility] Chloride 96 96 - 110 mmol/L LAB CHEMISTRY METHOD 04/25/2024 7:17 PM [facility] CO2 36(H) 21 - 32 mmol/L LAB CHEMISTRY METHOD 04/25/2024 7:17 PM [facility] Anion Gap 4 3 - 11 LAB CHEMISTRY METHOD 04/25/2024 7:17 PM [facility] Glucose 93 70 - 100 mg/dL LAB CHEMISTRY METHOD 04/25/2024 7:17 PM [facility] BUN 15 5 - 25 mg/dL LAB CHEMISTRY METHOD 04/25/2024 7:17 PM [facility] Creatinine 0.96 0.50 - 1.10 mg/dL LAB CHEMISTRY METHOD 04/25/2024 7:17 PM [facility] eGFR 61 >=60 mL/min/1. 73m2 LAB CHEMISTRY METHOD 04/25/2024 7:17 PM [facility] Comment:Calculation based on the??Chronic Kidney Disease Epidemiology Collaboration (CKD-EPI) equation refit??without adjustment for race. BUN/Creatinine Ratio 15.6 LAB CHEMISTRY METHOD 04/25/2024 7:17 PM [facility] Calcium 10.0 8.5 - 10.5 mg/dL LAB CHEMISTRY METHOD 04/25/2024 7:17 PM [facility] AST (SGOT) 9(L) 10 - 42 unit/L LAB CHEMISTRY METHOD 04/25/2024 7:17 PM [facility] ALT (SGPT) 17 10 - 60 unit/L LAB CHEMISTRY METHOD 04/25/2024 7:17 PM [facility] Alkaline Phosphatase 99 42 - 121 unit/L LAB CHEMISTRY METHOD 04/25/2024 7:17 PM [facility] Total Protein 8.0 6.0 - 8.0 g/dL LAB CHEMISTRY METHOD 04/25/2024 7:17 PM [facility] Albumin 3.9 3.2 - 5.0 g/dL LAB CHEMISTRY METHOD 04/25/2024 7:17 PM [facility] Total Bilirubin 0.3 0.0 - 1.4 mg/dL LAB CHEMISTRY METHOD 04/25/2024 7:[address] [facility] Blood Venous blood specimen / Unknown Venipuncture / Unknown 04/25/2024 1:43 PM EST 04/25/2024 1:43 PM EST us Marques [facility] LAB BLOOD ORDERABLES Final Resu lt [facility] ([facility]) [facility] [address] [place] [address], [place] [phone] * CT Chest wo Contrast (04/24/2024 11:08 AM EST) Anatomical Region Laterality Modality Body Computed Tomogra phy 04/25/2024 9:16 AM EST Impressions 04/25/2024 9:29 AM EST There are scattered micronodules which are likely postinflammatory. No suspicious interval change. No suspicious right lower lobe nodule. ?? -------- FINAL REPORT -------- Dictated By: Peter Slaughter Dictated Date: 04/25/2024 09:16 ET Assigned Physician: Peter Slaughter Reviewed and Electronically Signed By: Peter Slaughter Signed Date: 04/25/2024 09:29 ET Workstation ID: [id number] Transcribed By: Self Edit Transcribed Date: 04/25/2024 09:16 ET Narrative 04/25/2024 9:29 AM EST EXAMINATION: CT CHEST WITHOUT CONTRAST CLINICAL INFORMATION: Lung nodule. ??Report of CT angiography of the chest 02/06/2023 indicates 0.6 cm right lower lobe nodule COMPARISON: Portions of previous chest CT 02/06/2023 ?? TECHNIQUE: Multidetector CT. Examination of the chest. Examination of the chest without IV contrast. Reformatting in the coronal and sagittal planes. DLP: 599 mGy-cm Dose optimization was performed including the use of low-dose iterative reconstruction technique with automatic exposure control based on patient size. Type of contrast: None Volume of IV contrast: None Volume of contrast discarded: 0 mL FINDINGS: LUNG: No abnormality of the trachea or mainstem bronchi. No suspicious right lower lobe nodule. There is a linear opacity with volume loss in the posterolateral right lower lobe which is unchanged. There is a 0.3 cm peripheral nodule in the anterior aspect of the right upper lobe (4/90). In a low risk patient this does not require any specific imaging follow- up. There are several other scattered micronodules which appear unchanged. Some of these are calcified granulomata. ?? MEDIASTINUM: ??There are no enlarged mediastinal or hilar lymph nodes. No suspicious abnormality of the esophagus CARDIAC: The heart is not enlarged. No pericardial fluid or thickening. There is calcification of mitral annulus. ?? CORONARY CALCIFICATION: ??There are mild coronary calcifications. VASCULAR: There is no thoracic aortic aneurysm. The main pulmonary artery is mildly dilated. ?? PLEURA: There is no pleural fluid or pneumothorax ?? AXILLA/CHEST WALL: There are no enlarged axillary lymph nodes. No chest wall mass demonstrated ?? VISUALIZED UPPER ABDOMEN: ??No suspicious abnormality on limited assessment of the visualized upper abdomen. Probable cysts ventral aspect right kidney. MUSCULOSKELETAL: No suspicious focal bony lesion. ?? Procedure Note Peter Slaughter MD - 04/25/2024 EXAMINATION: CT CHEST WITHOUT CONTRAST CLINICAL INFORMATION: Lung nodule. Report of CT angiography of the chest 02/06/2023 indicates0.6 cm right lower lobe nodule COMPARISON: Portions of previous chest CT 02/06/2023 TECHNIQUE: Multidetector CT. Examination of the chest. Examination of the chest without IV contrast. Reformatting in the coronal and sagittal planes. DLP: 599 mGy-cm Dose optimization was performed including the use of low-dose iterativereconstruction technique with automatic exposure control based on patientsize. Type of contrast: None Volume of IV contrast: None Volume of contrast discarded: 0 mL FINDINGS: LUNG: No abnormality of the trachea or mainstem bronchi. No suspicious right lower lobe nodule. There is a linear opacity with volume loss in the posterolateral rightlower lobe which is unchanged. There is a 0.3 cm peripheral nodule in the anterior aspect of the rightupper lobe (4/90). In a low risk patient this does not require anyspecific imaging follow- up. There are several other scattered micronodules which appear unchanged.Some of these are calcified granulomata. MEDIASTINUM: There are no enlarged mediastinal or hilar lymph nodes. Nosuspicious abnormality of the esophagus CARDIAC: The heart is not enlarged. No pericardial fluid or thickening. There is calcification of mitral annulus. CORONARY CALCIFICATION: There are mild coronary calcifications. VASCULAR: There is no thoracic aortic aneurysm. The main pulmonary arteryis mildly dilated. PLEURA: There is no pleural fluid or pneumothorax AXILLA/CHEST WALL: There are no enlarged axillary lymph nodes. No chestwall mass demonstrated VISUALIZED UPPER ABDOMEN: No suspicious abnormality on limited assessmentof the visualized upper abdomen. Probable cysts ventral aspect rightkidney. MUSCULOSKELETAL: No suspicious focal bony lesion. IMPRESSION: There are scattered micronodules which are likely postinflammatory. No suspicious interval change. No suspicious right lower lobe nodule. -------- FINAL REPORT -------- Dictated By: Peter Slaughter Dictated Date: 04/25/2024 09:16 ET Assigned Physician: Peter Slaughter Reviewed and Electronically Signed By: Peter Slaughter Signed Date: 04/25/2024 09:29 ET Workstation ID: [id number] Transcribed By: Self Edit Transcribed Date: 04/25/2024 09:16 ET Shefali García MD [facility] CT PROCEDURES Final Result * (ABNORMAL) Lipid panel with reflex to direct LDL (03/14/2024 1:38 PM EST) Only the most recent of2 resultswithin the time period is included. Cholesterol 216(H) 0 - 200 mg/dL LAB CHEMISTRY METHOD 03/14/2024 5:26 PM [facility] Triglycerides 95 0 - 150 mg/dL LAB CHEMISTRY METHOD 03/14/2024 5:26 PM [facility] HDL 113 >=40 mg/dL LAB CHEMISTRY METHOD 03/14/2024 5:26 PM [facility] LDL Calculated 84 0 - 100 mg/dL LAB CHEMISTRY METHOD 03/14/2024 5:26 PM [facility] VLDL Cholesterol Titi 19 mg/dL LAB CHEMISTRY METHOD 03/14/2024 5:26 PM [facility] Non HDL Chol. (LDL+VLDL) 103 <145 mg/dL LAB CHEMISTRY METHOD 03/14/2024 5:[address] [facility] Chol/HDL Ratio 1.9 0.0 - 4.4 LAB CHEMISTRY METHOD 03/14/2024 5:[address] [facility] Blood Venous blood specimen / Unknown Venipuncture / Unknown 03/14/2024 1:38 PM EST 03/14/2024 1:38 PM EST Phillip Cabral MD LAB BLOOD ORDERABLES F inal Result Performing Organization Address City/[facility]/ZIP Co de Phone Number [facility] [address] [place] [address], [place] [phone] * B-type natriuretic peptide (03/14/2024 1:38 PM EST) BNP 28 <=100 pcg/mL LAB CHEMISTRY METHOD 03/14/2024 5:[address] [facility] Blood Venous blood specimen / Unknown Venipuncture / Unknown 03/14/2024 1:38 PM EST 03/14/2024 1:38 PM EST Phillip Cabral MD LAB BLOOD ORDERABLES F inal Result [facility] [address] [place] [address], [place] [phone] * Magnesium (03/14/2024 1:38 PM EST) Magnesium 2.0 1.9 - 2.6 mg/dL LAB CHEMISTRY METHOD 03/14/2024 4:[address] [facility] Blood Venous blood specimen / Unknown Venipuncture / Unknown 03/14/2024 1:38 PM EST 03/14/2024 1:38 PM EST Phillip Cabral MD LAB BLOOD ORDERABLES F inal Result [facility] ([facility]) [facility] [address] [place] [address], [place] [phone] * Cardiac court recording monitor with connection (03/13/2024 6:48 PM EST) Anatomical Region Laterality Modality Cardiac Diagnost ic Addenda Addendum by Phillip Cabral MD on 03/13/2024 6:48 PM EST TYPE OF TEST ??30 day ROCT monitor. DATES OF MONITORING: ??12/22/23- 01/21/24 REQUESTING PHYSICIAN: Phillip Melton MD PRIMARY CARE PROVIDER: Estrellita Meadows MD INDICATION: Syncope FINDINGS: 1. The predominant rhythm was sinus. 2. The average heart rate was 84 bpm, minimum heart rate was 67 bpm, maximum heart rate was 163 bpm. 3. Total VE burden: 0.5% consisting of singles, & VE Couplet. 4. Total SVE burden: 10.5% consisting of singles, couplets, SVE Bigeminy, SVE Trigeminy, with Atrial run's present. 5. ??The patient had brief episodes of SVT with a maximal duration of 2 minutes. ??No evidence of atrial fibrillation. 6. There were 0 patient triggered symptomatic events. Phillip Cabral MD [facility] [place] OCEDURES Edited Result - Final * (ABNORMAL) TRANSTHORACIC ECHOCARDIOGRAM (TTE) COMPLETE (03/09/2024 11:10 AM EST) Left Atrium Minor [place] 5.7 cm CV PACS Left Atrium Major [place] 5.8 cm CV PACS LA Area Sys (A2C) 21 cm2 CV PACS LA Area Sys (A4C) 19 cm2 CV PACS LA Volume (BP) 56 mL CV PACS LA Size 4.7 cm CV PACS RA Area 15.6 cm2 CV PACS RA 2D Volume 40 mL CV PACS AV Mean Gradient 4 mmHg CV PACS Ao VTI 30.0 cm CV PACS AV Peak Maksim 1.4 m/s CV PACS AV Peak Gradient 8 mmHg CV PACS AV Area Continuity Equation 2.3 cm2 CV PACS AV Area Peak Velocity 2.5 cm2 CV PACS Aortic Arch 1.8 cm CV PACS Ascending Aorta 3.4 cm CV PACS Aortic Sinus Valsalva 3.0 cm CV PACS IVC Proximal 1.8 cm CV PACS IVSD 1.1(A) 0.6 - 0.9 cm CV PACS LVIDD 4.1 3.8 - 5.2 cm CV PACS LVIDS 2.7 2.2 - 3.5 cm CV PACS LVOT Diameter 1.9 cm CV PACS LVOT Mean Maksim 0.7 m/s CV PACS LVOT Mean Grad 3 mmHg CV PACS LVOT Peak VTI 24.3 cm CV PACS LVOT Peak Maksim 1.3 m/s CV PACS LVOT Peak Gradient 7 mmHg CV PACS LVPWD 1.1(A) 0.6 - 0.9 cm CV PACS MV E' Tissue Velocity Lateral 8 cm/s CV PACS MV E' Tissue Velocity Septal 5 cm/s CV PACS LVOT Area 2.8 cm2 CV PACS LVOT Stroke Volume 69 mL CV PACS MV Deceleration Mcpherson 4.2 m/s2 CV PACS E Wave Deceleration Time 242 119 - 242 ms CV PACS MV PHT 71 ms CV PACS MV Peak A Maksim 1.21 m/s CV PACS MV Peak A Maksim 1.21 m/s CV PACS MV Peak E Maksim 1.05 m/s CV PACS MV Mean Gradient 2 mmHg CV PACS MV Mean Gradient 2 mmHg CV PACS MV Mean Gradient 2 mmHg CV PACS MV Mean Gradient 2 mmHg CV PACS MV VTI 33.1 cm CV PACS Mitral Valve Max Velocity 1.4 m/s CV PACS MV Peak Gradient 8 mmHg CV PACS MV Area PHT 3.1 cm2 CV PACS MV Area Continuity Equation 2.1 cm2 CV PACS PV Acceleration Time 130 ms CV PACS PV Mean Gradient 1 mmHg CV PACS PV VTI 13.9 cm CV PACS PV Peak Velocity 0.7 m/s CV PACS PV Peak Gradient 2 mmHg CV PACS RV Diastolic Basal Dimension 4.0 2.5 - 4.1 cm CV PACS RV S' 8 cm/s CV PACS TAPSE 20 mm CV PACS TR Peak Velocity 2.55 m/s CV PACS TR Peak Gradient 26 mmHg CV PACS E/E' Ratio Septal 21 CV PACS E/E' Ratio Averaged 17 CV PACS Relative Wall Thickness ratio 0.54 CV PACS LVOT:AV VTI Index 0.81 CV PACS FS 34 % CV PACS LV Mass 2D 151 g CV PACS MV VTI:LVOT VTI ratio 1.4 CV PACS LVOT flow 198 mL/s CV PACS AV Velocity Ratio 0.93 CV PACS E/E' Ratio Lateral 13 CV PACS BSA 1.82 m2 CV PACS LA Volume Index (BP) 32 mL/m2 CV PACS LVIDD Index 2.34 cm/m2 CV PACS LVIDS Index 1.54 cm/m2 CV PACS LV Mass Index 2D 86 44 - 88 g/m2 CV PACS LVOT Stroke Index 39 mL/m2 CV PACS LA Dimension Index 2D 2.7 cm/m2 CV PACS RA 2D Volume Index 23 15 - 27 mL/m2 CV PACS ANA Index (VTI) 1.31 cm2/m2 CV PACS ANA Index (Pk Maskim) 1.43 cm2/m2 CV PACS Ascending Aorta Index 1.94 cm/m2 CV PACS Anatomical Region Laterality Modality Ultrasound Narrative 03/19/2024 4:17 PM EST ?Left ventricle cavity size is normal. Left ventricular systolic function is in the normal range with an ejection fraction of 60-65%. ?No regional LV wall motion abnormalities noted. ?Left ventricle mild concentric hypertrophy. ?Right ventricle cavity is normal. ?Aortic valve leaflets are mildly thickened. ?Left atrial enlargement ?Mitral annular calcification trace mitral insufficiency ?Mild tricuspid insufficiency no evidence of pulmonary hypertension Left Ventricle Left ventricle cavity size is normal. There is mild concentric hypertrophy. Systolic function is normal with an ejection fraction of 60-65%. There are no regional LV wall motion abnormalities. Right Ventricle Right ventricle cavity appears normal. Left Atrium Left atrium cavity size is normal. Right Atrium Right atrium cavity is normal. IVC/SVC Inferior vena cava structure is normal. RA pressures is estimated to be 3 mmHg (IVC diameter <21 mm and decreases >50% during inspiration). Mitral Valve The leaflets are mildly thickened. There is mild annular calcification. There is mild regurgitation with a centrally directed jet. There is no evidence of mitral valve stenosis. Tricuspid Valve Tricuspid valve structure is normal. There is trace regurgitation. The right ventricular systolic pressure is normal. Aortic Valve The aortic valve is trileaflet. The leaflets are mildly thickened. There is no regurgitation or stenosis. Pulmonic Valve There is no pulmonic valve regurgitation. Ascending Aorta The aorta appears normal in size. Pericardium Pericardium appears normal. There is no pericardial effusion. Study Details Overall the study quality was adequate. Phillip Cabral MD CV ECHO PROCEDURES Fin al Result * Vitamin B12 and folate (03/01/2024 10:16 AM EST) [facility] Vitamin B-12 419 250 - 900 pcg/mL LAB CHEMISTRY METHOD 03/01/2024 12:51 PM [facility] Folate 12.5 2.8 - 17.0 ng/ml LAB CHEMISTRY METHOD 03/01/2024 12:51 PM [facility] Blood Venous blood specimen / Unknown Venipuncture / Unknown 03/01/2024 10:16 AM EST 03/01/2024 10:16 AM EST Lee Berkowitz MD LAB BLOOD ORDERABLES Final R esult [facility] [address] [place] [address], * Iron and TIBC (03/01/2024 10:16 AM EST) [facility] Iron 100 40 - 150 mcg/dL LAB CHEMISTRY METHOD 03/01/2024 12:51 PM [facility] TIBC 275 250 - 450 mcg/dL LAB CHEMISTRY METHOD 03/01/2024 12:51 PM [facility] Iron Saturation 36 15 - 50 % LAB CHEMISTRY METHOD 03/01/2024 12:51 PM [facility] Blood Venous blood specimen / Unknown Venipuncture / Unknown 03/01/2024 10:16 AM EST 03/01/2024 10:16 AM EST Lee Berkowitz MD LAB BLOOD ORDERABLES Final R esult Performing Organization Address [facility]/ZIP Co de Phone Number [facility] [address] [place] [address], [place] [phone] * Hemoglobin A1c (03/01/2024 10:16 AM EST) [facility] Hemoglobin A1C 5.5 <6.5 % LAB CHEMISTRY METHOD 03/01/2024 2:[address] [facility] Mean Bld Glu Estim. 111 mg/dL LAB CHEMISTRY METHOD 03/01/2024 2:[address] [facility] Blood Venous blood specimen / Unknown Venipuncture / Unknown 03/01/2024 10:16 AM EST 03/01/2024 10:16 AM EST Estrellita Meadows MD LAB BLOOD ORDERABLES Final Resul t Performing Organization Address [facility]/ZIP Co de Phone Number [facility] [address] [place] [address], [place] [phone] * DXA BONE DENSITY STUDY 1+ SITS AXIAL SKEL (03/18/2023 9:50 AM EST) Anatomical Region Laterality Modality Bone Densitometr y 11/17/2022 9:48 AM EDT Narrative 03/18/2023 4:04 PM EST STUDY: ??DUAL ENERGY X-RAY ABSORPTIOMETRY / DXA REASON FOR EXAM: ?? Female, 77 years old ??disorder of bone or cartilage TECHNIQUE: ?? Bone Mineral Density (BMD) measurements of the lumbar spine and left hip were obtained using [employer] W (S/N [id number]). ?? COMPARISON: October 02, 2020 ?? FINDINGS: L1-L2-L4 BMD: 0.854 g/cm2 L1-L2-L4 T score: -1.6. ??This corresponds to osteopenia. This represents a -4.7* % decrease in bone density compared with prior exam from October 02, 2020. Left femoral neck BMD: 0.782 g/cm2 Left femoral neck T score: -0.6. ??This corresponds to Normal bone density. Left total hip BMD: 0.904 g/cm2 Left total hip T score: -0.3. ??This corresponds to Normal bone density. This represents a -2.5 % decrease in bone density compared with prior exam from October 02, 2020. * - Indicates a statistically significant change. FRAX score: 10 year risk of major osteoporotic fracture 8.5%, 10 year risk of hip fracture 1.3% IMPRESSION: IMPRESSION: Osteopenia Reference Information: The T-score is the number of standard deviations above or below the standard which is normal for young adults at their peak bone mineral density. The World Health Organization (WHO) interprets the T-scores as follows: At or above ??-1 SD ?Normal bone density Between -1 and -2.5 SD ??Osteopenia At or below -2.5 SD ?Osteoporosis Procedure Note Linda Schuster MD - 11/01/2023 STUDY: DUAL ENERGY X-RAY ABSORPTIOMETRY / DXA REASON FOR EXAM: Female, 77 years old disorder of bone or cartilage TECHNIQUE: Bone Mineral Density (BMD) measurements of the lumbar spineand left hip were obtained using [employer] W (S/N [id number]). COMPARISON: October 02, 2020 FINDINGS: L1-L2-L4 BMD: 0.854 g/cm2 L1-L2-L4 T score: -1.6. This corresponds to osteopenia. This represents a -4.7* % decrease in bone density compared with priorexam from October 02, 2020. Left femoral neck BMD: 0.782 g/cm2 Left femoral neck T score: -0.6. This corresponds to Normal bonedensity. Left total hip BMD: 0.904 g/cm2 Left total hip T score: -0.3. This corresponds to Normal bone density. This represents a -2.5 % decrease in bone density compared with prior examfrom October 02, 2020. * - Indicates a statistically significant change. FRAX score: 10 year risk of major osteoporotic fracture 8.5%, 10 year riskof hip fracture 1.3% IMPRESSION: IMPRESSION: Osteopenia Reference Information: The T-score is the number of standard deviations above or below thestandard which is normal for young adults at their peak bone mineral density. 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
--- OUTSIDE RECORDS SUMMARY | 2024-05-03 13:14 | XMS_ITS | Encounter Summary ---
Author Organization [facility] Address [address] [place] [address] Care Team Providers Care Fagoting Machine Operator Name Role Phone Estrellita Meadows MD Primary Care Provider [phone] Reason for Visit * Reason Comments Anemia DEISI Encounter Details Date Type Department Care Team ([facility] Contact Info) Description 04/25/2024 1:00 PM EST Office Visit Gastroenterology - [place] [address] [place] [phone] Marques Amaya PA [address] [place] [address] Iron deficiency anemia, unspecified iron deficiency anemia type (Primary Dx); PAF (paroxysmal atrial fibrillation) (CMS/HCC); Vitamin B 12 deficiency; Chronic gastritis without bleeding, unspecified gastritis type; Diverticulosis; Hiatal hernia Social History Tobacco Use Types Packs/Day Years Used Date Smoking Tobacco: Never Smokeless Tobacco: Never Alcohol Use Standard [...] Pulse 87 04/25/2024 1:05 PM EST Temperature - - Respiratory Rate - - Oxygen Saturation 93% 04/25/2024 1:05 PM EST Inhaled Oxygen Concentration - - Weight 76.2 kg (168 lb) 04/25/2024 1:05 PM EST Height 152.4 cm (5') 04/25/2024 1:05 PM EST Body Mass Index 32.81 04/25/2024 1:05 PM EST documented in this encounter Patient Instructions * Attachments The following attachments cannot be sent through Care Everywhere. * Gastritis (Jordanian) * Diverticulosis (Jordanian) * Diverticulosis and Diverticulitis: General Info (Jordanian) * Hiatal Hernia (Jordanian) * Anemia: Iron Deficiency (Jordanian) * Iron Supplements: General Info (Jordanian) * Iron-Rich Diet (Jordanian) * Atrial Fibrillation (Jordanian) * [id number]: General Info (Jordanian) * Anemia: Folate Deficiency (Jordanian) * Vitamin B12 Deficiency (Jordanian) documented in this encounter Progress Notes * AYE Griffin - 04/25/2024 1:00 PM EST Patient seen in Dec 2023 for anemia and b 12 def. Patient has since undergone a colonoscopy and [facility]. Was told she has diverticulosis and a hiatal hernia but no explanation for her anemia,. Patient has undergone a CT as well and noted that she has gastritis. Patient is to hold the omeprazole for 2 weeks and then perform the breath test to rule out h.pylori bacteria. Patient has had iron infu aarti a couple of months ago and felt well but now is having more fatigue and we will perform albs and be in touch- she may need to follow up with hematology for a repeat infusion. * AYE Griffin - 04/25/2024 1:00 PM EST DENTIFIER: Amarilys Birch is a 78 y.o. old female who presents to the gastroenterology departmenttoday for re-evaluation of iron deficiency anemia, B12 deficiency anemia. HPI: 78-year-old female seen in Dec 2023 for anemia and b 12 def. 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 Was told she has diverticulosis and a hiatal hernia but no explanation for her anemia,. Patient has undergone a CT in December as well and noted that she has gastritis. Due to her epigastric discomfort, patient is to hold the omeprazole for 2 weeks and then perform the breath test to rule out h.pylori bacteria. Patient has had iron infusion a couple of months ago and felt well for couple of months but now is having more fatigue and we will perform labs and be in touch- she may need to follow up with hematology for a repeat infusion which she received 2 infusions in late 2023 ROS: GENERAL: No malaise, significant weight loss or fever HEENT: No changes in hearing or vision, nose bleeds or swallowing problems NECK: No lumps, goiter, pain or significant neck swelling RESPIRATORY: No cough, wheezing or shortness of breath, positive for asthma CARDIOVASCULAR: No chest pain, leg swelling or palpitations GI: Positive for diverticulosis, hiatal hernia, GERD, epigastric pain MUSCULOSKELETAL: No joint pain or swelling, back pain, or muscle pain. SKIN: No lesions, rash or itching Hematology: Positive for anemia, B12 deficiency The remainder of the review of systems is reviewed and negative. PAST MEDICAL HISTORY: Patient Active Problem List Diagnosis Date Noted Syncope 12/08/2023 Iron deficiency anemia due to chronic blood loss 11/12/2023 Degenerative joint disease (DJD) of lumbar spine 10/22/2023 B12 deficiency 09/24/2023 Chronic obstructive pulmonary disease ([facility]) 09/24/2023 Requires supplemental oxygen 09/24/2023 Colon polyp 05/18/2023 Lower GI bleed 05/18/2023 Atrial fibrillation (CMS/HCC) 02/11/2023 CKD (chronic kidney disease) stage 3, GFR 30-59 ml/min ([facility]/HCC) 08/01/2020 Prediabetes 08/01/2020 Vitamin D insufficiency 08/01/2020 External hemorrhoid 2018 Pure hypercholesterolemia 01/12/2017 Anxiety 03/02/2016 Asthma 02/22/2015 HTN (hypertension) 08/17/2014 Glomerulonephritis 07/28/2013 IBS (irritable bowel syndrome) 06/05/2011 Diverticulosis 07/16/2010 Hiatal hernia 04/29/2010 GERD (gastroesophageal reflux disease) 03/11/2010 Lung nodule 04/19/2008 Depression 01/19/2008 Osteopenia 01/19/2008 SOCIAL HISTORY: Social History Tobacco Use Smoking status: Never Smokeless tobacco: Never Substance Use Topics Alcohol use: Not Currently FAMILY HISTORY: Family History Problem Relation Name Age of Onset Alcohol abuse Mother Emphysema Father Glaucoma Sister Cancer Brother Glaucoma Aunt Breast cancer Neg Hx Colon cancer Neg Hx Ovarian cancer Neg Hx ACTIVE MEDICATIONS: No outpatient medications have been marked as taking for the 04/25/24 encounter (Office Visit) with AYE Griffin. ALLERGIES: @ALL@ PHYSICAL EXAM: Visit Vitals BP 130/74 Pulse 87 Ht 1.524 m (60 ) Wt 76.2 kg (168 lb) SpO2 93% BMI 32.81 kg/m?? Smoking Status Never BSA 1.73 m?? APPEARANCE: Alert and in no acute distress EYES: PERRLA, conjunctiva and sclera normal. MOUTH/THROAT: no erythema or exudates NECK: Neck supple, no adenopathy HEART: RRR with normal S1 and S2, no murmurs appreciated LUNG: Positive for expiratory wheeze greater on left than right and little clear with cough LYMPH NODES: grossly normal ABDOMEN: Soft, nontender, normal active bowel sounds throughout, no organomegaly RECTAL: Exam deferred. EXTREMITIES: Extremities warm and well perfused SKIN: Skin color, texture, turgor normal. LABS: Lab Results Component Value Date WBC 5.2 03/14/2024 WBC 4.3 (L) 03/01/2024 HGB 13.4 03/14/2024 HGB 14.2 03/01/2024 HCT 44.3 03/14/2024 HCT 47.1 (H) 03/01/2024 MCV 95.1 03/14/2024 MCV 93.5 03/01/2024 PLT 196 03/14/2024 PLT 207 03/01/2024 NA 136 03/14/2024 K 4.2 03/14/2024 CL 99 03/14/2024 CO2 37 (H) 03/14/2024 GLUCOSE 107 (H) 03/14/2024 BUN 17 03/14/2024 CREATININE 1.04 03/14/2024 CALCIUM 9.6 03/14/2024 PROT 7.6 03/14/2024 ALBUMIN 3.8 03/14/2024 BILITOT 0.2 03/14/2024 AST 12 03/14/2024 ALT 18 03/14/2024 MG 2.0 03/14/2024 ALKPHOS 102 03/14/2024 EGFR 55 (L) 03/14/2024 Lab Results Component Value Date IRON 100 03/01/2024 FERRITIN 86 03/01/2024 IMAGING: CT Chest wo Contrast Narrative: EXAMINATION: CT CHEST WITHOUT CONTRAST CLINICAL INFORMATION: [...] the right upper lobe (4/90). In a lowrisk patient this does not require any specific imaging follow-up. There are several other scattered micronodules which appear unchanged. Some of these are calcified granulomata. MEDIASTINUM: There are no enlarged mediastinal or hilar lymph nodes. No suspicious abnormality of the esophagus CARDIAC: The heart is not enlarged. No pericardial fluid or thickening. There is calcification of mitral annulus. CORONARY CALCIFICATION: There are mild coronary calcifications. VASCULAR: There is no thoracic aortic aneurysm. The main pulmonary artery is mildly dilated. PLEURA: There is no pleural fluid or pneumothorax AXILLA/CHEST WALL: There are no enlarged axillary lymph nodes. No chest wall mass demonstrated VISUALIZED UPPER ABDOMEN: No suspicious abnormality on limited assessment of the visualized upper abdomen. Probable cysts ventral aspect right kidney. MUSCULOSKELETAL: No suspicious focal bony lesion. Impression: There are scattered micronodules which are likely postinflammatory. No suspicious interval change. No suspicious right lower lobe nodule. -------- FINAL REPORT -------- Dictated By: Peter Slaughter Dictated Date: 04/25/2024 09:16 ET Assigned Physician: Peter Slaughter Reviewed and Electronically Signed By: Peter Slaughter Signed Date: 04/25/2024 09:29 ET Workstation ID: [id number] Transcribed By: Self Edit Transcribed Date: 04/25/2024 09:[address] Results for orders placed during the hospital encounter of 04/24/24 CT Chest wo Contrast Narrative EXAMINATION: CT CHEST WITHOUT CONTRAST CLINICAL INFORMATION: [...] the right upper lobe (4/90). In a lowrisk patient this does not require any specific imaging follow-up. There are several other scattered micronodules which appear unchanged. Some of these are calcified granulomata. MEDIASTINUM: There are no enlarged mediastinal or hilar lymph nodes. No suspicious abnormality of the esophagus CARDIAC: The heart is not enlarged. No pericardial fluid or thickening. There is calcification of mitral annulus. CORONARY CALCIFICATION: There are mild coronary calcifications. VASCULAR: There is no thoracic aortic aneurysm. The main pulmonary artery is mildly dilated. PLEURA: There is no pleural fluid or pneumothorax AXILLA/CHEST WALL: There are no enlarged axillary lymph nodes. No chest wall mass demonstrated VISUALIZED UPPER ABDOMEN: No suspicious abnormality on limited assessment of the visualized upper abdomen. Probable cysts ventral aspect right kidney. MUSCULOSKELETAL: No suspicious focal bony lesion. Impression There are scattered micronodules which are likely postinflammatory. No suspicious interval change. No suspicious right lower lobe nodule. -------- FINAL REPORT -------- Dictated By: Peter Slaughter Dictated Date: 04/25/2024 09:16 ET Assigned Physician: Peter Slaughter Reviewed and Electronically Signed By: Peter Slaughter Signed Date: 04/25/2024 09:29 ET Workstation ID: [id number] Transcribed By: Self Edit Transcribed Date: 04/25/2024 09:16 ET IMPRESSION: 1. Iron deficiency anemia, unspecified iron deficiency anemia type 2. PAF (paroxysmal atrial fibrillation) (CMS/HCC) 3. Vitamin B 12 deficiency 4. Chronic gastritis without bleeding, unspecified gastritis type 5. Diverticulosis 6. Hiatal hernia PLAN: 1. Iron deficiency anemia, paroxysmal atrial fib on Eliquis, history of gastritis, diverticulosis, hiatal hernia Patient had been seen last in December for iron deficiency as well as vitamin B12 deficiency. Since our visit, she has undergone CT which showed diverticulosis as well as mild gastritis. Patient is also undergone a endoscopy as well as a colonoscopy at [facility] in December and was told that she does have the gastritis. Patient is to perform labs to rule out H. pylori as she does have gastritis and to rule out atrophic gastritis and B12 anemia. She is aware to hold the PPI for 2 weeks and then perform the breath test and we will be in touch with her Patient has also undergone iron infusion and January 2020 for receiving 2 infusions and states that she felt better after the infusion however she is now having more issues with fatigue and shortness of breath. Unclear if this has to do with her asthma or if she is having anemia. Have asked patient to perform labs and we will be in touch with her in regards to results and if she is still low, wechristianoll refer to hematology Total time of today's encounter is 37 minutes in preparing to see the patient, reviewing labs, diagnostic studies as well as other provider notes, documenting in charting, creating an HPI, performinga medically appropriate exam, counseling patient at length in regards to anemia, gastritis and ruleout H. pylori bacteria There was documentation in EMR after visit. None of which time was spent perf orming separately billable procedures or ancillary services. Many thanks for allowing us to participate in patient's care Orders Placed This Encounter Procedures Vitamin B12 CBC and differential Comprehensive metabolic panel Ferritin Iron ADDITIONAL ORDERS: None AYE Griffin documented in this encounter Plan of Treatment Upcoming Encounters Date Type Department Care Team (Late st Contact Info) Description 05/10/2024 2:00 PM EST Office Visit Pulmonolgy - [place] 175 [facility] [address] [place] [address] Shefali García MD [address] [address] 06/13/2024 10:45 AM EDT Office Visit [facility] Hematology Oncology [address] [place] [phone] Lee Berkowitz MD [address] [place] [address] 07/04/2024 10:00 AM EDT Office Visit Adult Medicine [facility] - [place] [address] [place] [address] Millicent Dumont PA [address] [place] [address] 07/19/2024 1:15 PM EDT Office Visit Nephrology - [address] [phone] Orestes Harris MD [address] [phone] 09/06/2024 2:30 PM EDT Office Visit [facility] [address] [place] [address] Phillip Cabral MD [address] [place] [address] [address] [place] [address] documented as of this encounter Results * Iron (04/25/2024 1:43 PM EST) Iron 82 40 - 150 mcg/dL LAB CHEMISTRY METHOD 04/25/2024 7:39 PM EST [facility] Blood Venous blood specimen / Unknown Venipuncture / Unknown 04/25/2024 1:43 PM EST 04/25/2024 1:43 PM EST us Marques GRIFFITHS LAB BLOOD ORDERABLES Final Resu lt Performing Organization Address City/[facility]/ZIP Co de Phone Number [facility] [address] [place] [address], [place] [phone] * Ferritin (04/25/2024 1:43 PM EST) Pathologist [facility] Ferritin 48 8 - 252 ng/mL LAB CHEMISTRY METHOD 04/25/2024 7:17 PM [facility] Blood Venous blood specimen / Unknown Venipuncture / Unknown 04/25/2024 1:43 PM EST 04/25/2024 1:43 PM EST us Marques GRIFFITHS LAB BLOOD ORDERABLES Final Resu lt Performing Organization Address City/[facility]/ZIP Co de Phone Number [facility] [address] [place] [address], [place] [phone] * (ABNORMAL) Comprehensive metabolic panel (04/25/2024 1:43 PM EST) Pathologist [facility] Sodium 136 133 - 145 mmol/L LAB CHEMISTRY METHOD 04/25/2024 7:17 PM EST [facility] Potassium 4.5 3.5 - 5.5 mmol/L LAB CHEMISTRY METHOD 04/25/2024 7:17 PM [facility] Chloride 96 96 - 110 mmol/L LAB CHEMISTRY METHOD 04/25/2024 7:17 PM [facility] CO2 36(H) 21 - 32 mmol/L LAB CHEMISTRY METHOD 04/25/2024 7:17 PM [facility] Anion Gap 4 3 - 11 LAB CHEMISTRY METHOD 04/25/2024 7:17 PM [facility] Glucose 93 70 - 100 mg/dL LAB CHEMISTRY METHOD 04/25/2024 7:17 PM [facility] BUN 15 5 - 25 mg/dL LAB CHEMISTRY METHOD 04/25/2024 7:17 PM [facility] Creatinine 0.96 0.50 - 1.10 mg/dL LAB CHEMISTRY METHOD 04/25/2024 7:17 PM [facility] eGFR 61 >=60 mL/min/1. 73m2 LAB CHEMISTRY METHOD 04/25/2024 7:17 PM [facility] Comment:Calculation based on the??Chronic Kidney Disease Epidemiology Collaboration (CKD-EPI) equation refit??without adjustment for race. BUN/Creatinine Ratio 15.6 LAB CHEMISTRY METHOD 04/25/2024 7:17 PM [facility] Calcium 10.0 8.5 - 10.5 mg/dL LAB CHEMISTRY METHOD 04/25/2024 7:17 PM [facility] AST (SGOT) 9(L) 10 - 42 unit/L LAB CHEMISTRY METHOD 04/25/2024 7:17 PM [facility] ALT (SGPT) 17 10 - 60 unit/L LAB CHEMISTRY METHOD 04/25/2024 7:17 PM [facility] Alkaline Phosphatase 99 42 - 121 unit/L LAB CHEMISTRY METHOD 04/25/2024 7:17 PM [facility] Total Protein 8.0 6.0 - 8.0 g/dL LAB CHEMISTRY METHOD 04/25/2024 7:17 PM [facility] Albumin 3.9 3.2 - 5.0 g/dL LAB CHEMISTRY METHOD 04/25/2024 7:17 PM [facility] Total Bilirubin 0.3 0.0 - 1.4 mg/dL LAB CHEMISTRY METHOD 04/25/2024 7:17 PM [facility] Blood Venous blood specimen / Unknown Venipuncture / Unknown 04/25/2024 1:43 PM EST 04/25/2024 1:43 PM EST Marques GRIFFITHS LAB BLOOD ORDERABLES Final Resu lt [facility] [address] [place] [address], [place] [phone] * Vitamin B12 (04/25/2024 1:43 PM EST) Pathologist [facility] Vitamin B-12 397 250 - 900 pcg/mL LAB CHEMISTRY METHOD 04/25/2024 7:17 PM EST [facility] Blood Venous blood specimen / Unknown Venipuncture / Unknown 04/25/2024 1:43 PM EST 04/25/2024 1:43 PM EST Marques GRIFFITHS LAB BLOOD ORDERABLES Final Resu lt [facility] [address] [place] [address], [place] [phone] documented in this encounter Visit Diagnoses Diagnosis Iron deficiency anemia, unspecified iron deficiency anemia type- Primary PAF (paroxysmal atrial fibrillation) (CMS/HCC) Atrial fibrillation Vitamin B 12 deficiency Other B-complex deficiencies Chronic gastritis without bleeding, unspecified gastritis type Diverticulosis Diverticulosis of colon (without mention of hemorrhage) Hiatal hernia Diaphragmatic hernia without mention of obstruction or gangrene documented in this encounter Care Teams Fagoting Machine Operator Relationship Specialty Start Date End Date Estrellita Meadows MD [address] [place] [address] PCP - General Internal Medicine 08/01/20 documented as of this encounter
--- OUTSIDE RECORDS SUMMARY | 2024-05-03 13:14 | XMS_ITS | Encounter Summary ---
Author Organization [facility] Address [address] [place] [address] Care Team Providers Care Vulnerability Researcher Name Role Phone Estrellita Meadows MD Primary Care Provider [phone] Reason for Visit * Reason Onset Date Comments Med Refill 03/17/2024 Dosage dosage 03/17/2024 Dosage Encounter Details Date Type Department Care Team ([facility] Contact Info) Description 03/17/2024 Telephone [facility] Associates [facility] [address] [place] [address] Phillip Cabral MD [address] [place] [address] [address] [place] [address] Med Refill (Dosage ); dosage (Dosage ) Social History Tobacco Use Types Packs/Day Years [...] PM EST documented as of this encounter Ordered Prescriptions Prescription Sig Dispense Quantity Refills Last Filled Start Date End Date dilTIAZem XR (DILACOR XR) 240 mg 24 hr capsule Take 1 capsule (240 mg total) by mouth 1 (one) time each day. 90 capsule 1 03/17/2024 5 documented in this encounter Progress Notes * Deysi Whitlock RN - 03/17/2024 3:29 PM EST Diltiazem ER 240 mg capsule daily rx ordered. [place]m[facility] from [facility]. I called Noemi andinformed her of the below message from Jose Ocampo. She voiced understanding. * Elmira Gonzalez - 03/17/2024 2:57 PM EST Elmira called from [facility], . Please call them to clarify the dosage on diltiazem Karenm * Ayde Ocampo NP - 03/17/2024 1:37 PM EST Would recommend she take the dose of diltiazem extended release 240 mg orally daily as previously prescribed. Monitor blood pressures as well. * Deysi Whitlock RN - 03/17/2024 9:18 AM EST I spoke to pt's daughter, Noemi. Please refer to telephone encounter dated 01/17/24 where pt was advised to increase Diltiazem ER from 180 mg daily to 240 mg daily. She's been taking two-180 mg tabs daily, for a total of 360 mg daily. Per Noemi, pt has not been reporting dizziness or lightheadedness. She is unsure what her heart rates have been. Would you like pt to continue taking [id number] mg daily at this time, or reduce to 240 mg daily? * N'Cherelle Mock - 03/17/2024 8:43 AM EST Patient's daughter Noemi states patient was told a few weeks ago to increase her Diltiazem 180 mg from 1 tab daily to 2 tabs daily. Patient is now out of this medication. She needs a new prescription with the new instructions sent to [facility] in [place] for 90 day supply. Patient is out of this medication. documented in this encounter Plan of Treatment Upcoming Encounters Date Type Department Care Team (Late st Contact Info) Description 05/10/2024 2:00 PM EST Office Visit Pulmonolgy - [place] [address] [phone] Shefali García MD [address] [address] 06/13/2024 10:45 AM EDT Office Visit [facility] Hematology Oncology [address] [place] [phone] Lee Berkowitz MD [address] [place] [address] 07/04/2024 10:00 AM EDT Office Visit Adult Medicine South - [address] [phone] Millicent Dumont PA [address] [place] [address] 07/19/2024 1:15 PM EDT Office Visit Nephrology - [address] [phone] Orestes Harris MD [address] [phone] 09/06/2024 2:30 PM EDT Office Visit [facility] - [facility] [address] [place] [phone] Phillip Cabral MD [address] [place] [address] [address] [place] [address] documented as of this encounter Visit Diagnoses Not on filedocumented in this encounter Discontinued Medications Medication Sig Discontinue Reason Start Date End Da te dilTIAZem XR (DILACOR XR) 180 mg 24 hr capsule Take 1 capsule (180 mg total) by mouth 1 (one) time each day. Dose adjustment 01/31/2024 03/17/2024 documented as of this encounter Care Teams Vulnerability Researcher Relationship Specialty Start Date End Date Estrellita Meadows MD [address] [place] [address] PCP - General Internal Medicine 08/01/20 documented as of this encounter
--- OUTSIDE RECORDS SUMMARY | 2024-05-03 13:14 | XMS_ITS | Clinical Summary ---
Author Organization [employer] Address [address] [facility] [address] [place] [address] Care Team Providers Care Job Analyst Name Role Phone Unavailable Primary Care Provider Unavailabl e Social History Tobacco Use Types Packs/Day Years Used Date Smoking Tobacco: Never Assessed Comments Unknown Sex and Gender Information Value Date Recorded Sex Assigned at Female 01/12/2022 10:25 AM EDT Legal Sex Female 10:25 AM EDT Gender Identity Female 01/12/2022 10:25 AM EDT Sexual Orientation Choose not to disclose 2021 10:25 AM EDT Last Filed Vital Signs Vital Sign Reading Time Taken Comments Blood Pressure 146/80 05/02/2019 12:02 AM EST Pulse 70 05/02/2019 12:02 AM EST Temperature - - Respiratory Rate - - Oxygen Saturation - - Inhaled Oxygen Concentration - - Weight 67.1 kg (148 lb) 05/02/2019 12:02 AM EST Height 152.4 cm (5') 05/02/2019 12:02 AM EST Body Mass Index 28.9 05/02/2019 12:02 AM EST Plan of Treatment Health Maintenance Due Date Last Done Comments Depression Screening 1945 Alcohol/Substance Use Screening 1957 Tobacco Screening 1957 RSV Patients and Patients Aged 60 years or older (1 - 1-dose 75+ series) 2020 COVID-19 Vaccine ( season) 2023 08/26/2021, 11/19/2020, 04/18/2020, Additional history exists Influenza Vaccine (#1) 2023 , 12/11/2019, 12/16/2018, Additional history exists DTaP/Tdap/Td Vaccines (2 - Td or Tdap) 12/16/2028 12/16/2018 Pneumococcal Vaccine: 50+ Years Completed 12/16/2018, 05/10/2018, 03/02/2016, Additional history exists Zoster Vaccines Completed 10/26/2019, 01/26/2019 HIB Vaccines Aged Out No longer eligi [...] patient's age to complete this topic Meningococcal Vaccine Aged Out No rosamaria rk eligible based on patient's age to complete this topic RSV under 20 months Aged Out No longe r eligible based on patient's age to complete this topic Rotavirus Vaccines Aged Out No longer eligible based on patient's age to complete this topic
--- OUTSIDE RECORDS SUMMARY | 2024-05-03 13:14 | XMS_ITS | Encounter Summary ---
Author Organization [facility] Address [address] [place] [address] Care Team Providers Care Health Promotion Educator Name Role Phone Estrellita Meadows MD Primary Care Provider Reason for Referral * Imaging (Routine) - Pending Review Specialty Diagnoses / Procedures Referred By Contac t Referred To Contact Radiology Diagnoses Lung nodule Procedures CT Chest wo Contrast Shefali García MD [address] [address] Phone: tel: fax: [facility] Referral ID Status Reason Start Date Expiration Date V isits Requested Visits Authorized [id number] Pending Review 02/18/2024 02/17/2025 1 1 Reason for Visit * Imaging (Routine) - Pending Review Specialty Diagnoses / Procedures Referred By Contac t Referred To Contact Radiology Diagnoses Lung nodule Procedures CT Chest wo Contrast Shefali García MD [address] [address] Phone: tel: fax: [facility] Referral ID Status Reason Start Date Expiration Date V isits Requested Visits Authorized [id number] Pending Review 02/18/2024 02/17/2025 1 1 Encounter Details Date Type Department Care Team (Latest Contact Info) Description 04/24/2024 10:56 AM EST - 04/24/2024 11:59 PM EST Hospital Encounter [facility] CT Scan [address] [place] [address] Lung nodule Discharge Disposition: Home or Self Care Social History Tobacco Use Types Packs/Day Years [...] PM EST documented as of this encounter Medications at Time of Discharge albuterol 2.5 mg /3 mL (0.083 %) nebulizer solution Inhale 3 mL (2.5 mg total) by mouth every 6 (six) hours if needed for wheezing. 07/01/2023 albuterol HFA (PROAIR HFA ; PROVENTIL HFA ; VENTOLIN HFA) 90 mcg/actuation inhaler Inhale 2 Puffs into the lungs every 4 hours as needed for Cough or Wheezing. 12/30/2017 ALPRAZolam (XANAX) 1 mg tablet Take 1 tablet (1 mg total) by mouth at bedtime as needed (sleep). 08/01/2020 apixaban (ELIQUIS) 5 mg tablet Take 1 tablet (5 mg total) by mouth every 12 (twelve) hours. 05/12/2023 atorvastatin (LIPITOR) 40 mg tablet Take 1 tablet (40 mg total) by mouth 1 (one) time each day. 90 each 2 03/21/2024 cephalexin (KEFLEX) 500 mg capsule Take 1 capsule (500 mg total) by mouth. 01/03/2024 cholecalciferol (VITAMIN D-3) 25 mcg (1,000 unit) tablet Take 2 tablets (2,000 Units total) by mouth 1 (one) time each day. cyanocobalamin (VITAMIN B-12) 500 mcg tablet Take 1 tablet (500 mcg total) by mouth 1 (one) time each day. dilTIAZem CD (CARDIZEM CD) 120 mg 24 hr capsuleIndications :Paroxysmal atrial fibrillation (CMS/HCC) Take 1 capsule (120 mg total) by mouth 2 (two) times a day. 60 each 11 04/17/2024 omeprazole (PriLOSEC) [address] capsule TAKE 1 CAPSULE BY MOUTH EVERY DAY 90 capsule 02/07/2024 traZODone (DESYREL) 50 mg tablet Take 1 tablet (50 mg total) by mouth at bedtime. venlafaxine XR (EFFEXOR-XR) 150 mg 24 hr capsule Take 1 capsule (150 mg total) by mouth 1 (one) time each day. 03/03/2021 venlafaxine XR (EFFEXOR-XR) 75 mg 24 hr capsule Take 1 capsule (75 mg total) by mouth 2 (two) times a day. 09/22/2020 documented as of this encounter Discharge Disposition Disposition Code Departure Means Destination Home or Self Care documented in this encounter Progress Notes * Shefali García MD - 04/24/2024 11:30 AM EST Inform patient Ct chest showed few very small lung nodules. I will discuss with her during 05/10/24 follow up visit. * Michelle Caldera MA - 04/24/2024 11:30 AM EST Results given to patient as advised by provider documented in this encounter Plan of Treatment Upcoming Encounters Date Type Department Care Team (Late st Contact Info) Description 05/10/2024 2:00 PM EST Office Visit Pulmonol - [place] [address] [phone] Shefali García MD [address] [address] 06/13/2024 10:45 AM EDT Office Visit [facility] Hematology Oncology [address] [place] [phone] Lee Berkowitz MD [address] [place] [address] 07/04/2024 10:00 AM EDT Office Visit [facility] - [place] [address] [place], [place] [phone] Millicent Dumont PA [address] [place], [place] 07/19/2024 1:15 PM EDT Office Visit Nephrology - [address] [phone] Orestes Harris MD [address] [place] [phone] 09/06/2024 2:30 PM EDT Office Visit [facility] Associates [facility] [address] [facility] [address] [place] [phone] Phillip Cabral MD [address] [place] [address] Dr Campo [address] [place] [address] documented as of this encounter Procedures Procedure Name Priority Date/Time Associated Diagnosis Comments CT CHEST WO CONTRAST Routine 04/24/2024 11:08 AM EST Lung nodule documented in this encounter Results * CT Chest wo Contrast (04/24/2024 11:08 [...] Signed Date: 04/25/2024 09:29 ET Workstation ID: [id number] Transcribed By: Self Edit Transcribed Date: 04/25/2024 [...] Signed Date: 04/25/2024 09:29 ET Workstation ID: [id number] Transcribed By: Self Edit Transcribed Date: 04/25/2024 09:16 ET Shefali García MD IMG CT PROCEDURES Final Result documented in this encounter Visit Diagnoses Diagnosis Lung nodule Other diseases of lung, not elsewhere classified documented in this encounter Care Teams Health Promotion Educator Relationship Specialty Start Date End Date Estrellita Meadows MD [address] [place] [address] PCP - General Internal Medicine 08/01/20 documented as of this encounter
--- OUTSIDE RECORDS SUMMARY | 2024-05-03 13:14 | XMS_ITS | Encounter Summary ---
Author Organization [facility] Address [address] [place] [address] Care Team Providers Care Reception Specialist Name Role Phone Estrellita Meadows MD Primary Care Provider Reason for Visit * Reason Comments Follow-up Encounter Details Date Type Department Care Team ([facility] Contact Info) Description 04/17/2024 1:00 PM EST Office Visit [facility] Cardiology Associates [facility] [address] [place] [address] Phillip Cabral MD [address] [place] [address] Dr Campo [address] [place] [address] Paroxysmal atrial fibrillation (CMS/HCC) (Primary Dx); Hiatal hernia Social History Tobacco Use Types [...] Sign Reading Time Taken Comments Blood Pressure 130/70 04/17/2024 12:49 PM EST Pulse 77 04/17/2024 12:49 PM EST Temperature - - Respiratory Rate - - Oxygen Saturation 95% 04/17/2024 12:49 PM EST Inhaled Oxygen Concentration - - Weight 76.3 kg (168 lb 4.8 oz) 04/17/2024 12:49 PM EST Height 152.4 cm (5') 04/17/2024 12:49 PM EST Body Mass Index 32.87 04/17/2024 12:49 PM EST documented in this encounter Ordered Prescriptions Prescription Sig Dispense Quantity Refills Last Filled Start Date End Date dilTIAZem CD (CARDIZEM CD) 120 mg 24 hr capsuleIndications :Paroxysmal atrial fibrillation (CMS/HCC) Take 1 capsule (120 mg total) by mouth 2 (two) times a day. 60 each 11 04/17/2024 documented in this encounter Progress Notes * Phillip Cabral MD - 04/17/2024 1:00 PM ESTAssociated Problem(s): Atrial fibrillation (CMS/HCC) Orders: dilTIAZem CD (CARDIZEM CD) 120 mg 24 hr capsule; Take 1 capsule (120 mg total) by mouth 2 (two) times a day. * Phillip Cabral MD - 04/17/2024 1:00 PM ESTAssociated Problem(s): Hiatal hernia documented in this encounter Plan of Treatment Upcoming Encounters Date Type Department Care Team (Late st Contact Info) Description 05/10/2024 2:00 PM EST [facility] [address] [phone] Shefali García MD [address] [address] 06/13/2024 10:45 AM EDT Office Visit [facility] Hematology Oncology [address] [place] [address] Lee Berkowitz MD [address] [place] [address] 07/04/2024 10:00 AM EDT Office Visit Adult [facility] South - [address] [phone] Millicent Dumont PA [address] [place], [place] 07/19/2024 1:15 PM EDT Office Visit Nephrology - [address] [phone] Orestes Harris MD [address] [facility] [address] [place] [phone] 09/06/2024 2:30 PM EDT Office Visit [facility] Cardiology Associates - [facility] [address] [place] [address] [place] [phone] Phillip Cabral MD [address] [place] [address] Dr Campo [address] [place] [address] documented as of this encounter Visit Diagnoses Diagnosis Paroxysmal atrial fibrillation (CMS/HCC)- Primary Atrial fibrillation Hiatal hernia Diaphragmatic hernia without mention of obstruction or gangrene documented in this encounter Discontinued Medications Medication Sig Discontinue Reason Start Date End Da te zolpidem (AMBIEN) 10 mg tablet Take 1 tablet (10 mg total) by mouth at bedtime as needed for sleep. Patient Discharge 08/01/2020 04/17/2024 dilTIAZem XR (DILACOR XR) 240 mg 24 hr capsule Take 1 capsule (240 mg total) by mouth 1 (one) time each day. Dose adjustment 03/17/2024 04/17/2024 documented as of this encounter Care Teams Reception Specialist Relationship Specialty Start Date End Date Estrellita Meadows MD [address] [place] [address] PCP - General Internal Medicine 08/01/20 documented as of this encounter
--- OUTSIDE RECORDS SUMMARY | 2024-05-03 13:14 | XMS_ITS | Encounter Summary ---
Author Organization [facility] Address [address] [place] [address] Care Team Providers Care Home Service Director Name Role Phone Estrellita Meadows MD Primary Care Provider [phone] Encounter Details Date Type Department Care Team (Late st Contact Info) Description 04/05/2024 Telephone [facility] Cardiology Associates - [facility] [address] [facility] [address] [place] [address] Phillip Cabral MD [address] [place] [address] Dr Campo [address] [place] [address] Social History Tobacco Use Types Packs/Day Years [...] PM EST documented as of this encounter Progress Notes * Phillip Cabral MD - 04/05/2024 1:23 PM EST Please call the patient to let her know that I reviewed the results of her recent cardiac tests: 1. Echocardiogram. The echocardiogram done on 03/09/2024 showed a normal cardiac function and mild insufficiency of the tricuspid valve. As such, would recommend for him to undergo a follow-up echocardiogram in 3 years for reevaluation of her mild tricuspid valve insufficiency. 2. Ambulatory athletic monitor. The patient's heart remained in a normal rhythm throughout the monitoring period. She had brief episodes of SVT with a maximum duration of 2 minutes. As such, at this point, would recommend for the patient to continue her current therapy with diltiazem. 3. Cardiac CT scan. A cardiac CT scan was done at [facility] in March 2024. This study showed evidence of a mild stenosis (25-29%) in the second diagonal branch and a minimal stenosis (1-24%) in the left main and LAD. As such, she has mild nonobstructive coronary artery disease. Would recommend forthe patient to continue her current medication regimen for now, including her diltiazem, atorvastatin, and Eliquis. Please arrange for the patient to come in for a follow-up appointment with me on 04/17/2024 in order to discuss her test in further detail. documented in this encounter Plan of Treatment Upcoming Encounters Date Type Department Care Team (Late st Contact Info) Description 05/10/2024 2:00 PM EST Office Visit Pulmonol - [place] [address] [phone] Shefali García MD [address] [address] 06/13/2024 10:45 AM EDT Office Visit [facility] Hematology Oncology [address] [place] [phone] Lee Berkowitz MD [address] [place] [address] 07/04/2024 10:00 AM EDT Office Visit Adult [facility] [address] [place] [address] Millicent Dumont PA [address] [place] [address] 07/19/2024 1:15 PM EDT Office Visit Nephrology - [place] 444 [place] [address] Orestes Harris MD [address] [facility] 200 [place] [address] 09/06/2024 2:30 PM EDT Office Visit [facility] Cardiology Associates - [facility] [address] [place] [address] Dr Craven [address] [place] [address] Phillip Cabral MD [address] [place] [address] Dr Campo 410 [place] [address] documented as of this encounter Visit Diagnoses Not on filedocumented in this encounter Care Teams Home Service Director Relationship Specialty Start Date End Date Estrellita Meadows MD [address] [place] [address] PCP - General Internal Medicine 08/01/20 documented as of this encounter
--- OUTSIDE RECORDS SUMMARY | 2024-05-03 13:14 | XMS_ITS | Encounter Summary ---
Author Organization [facility] Address [address] [place] [address] Care Team Providers Care Clinical Asst Name Role Phone Estrellita Meadows MD Primary Care Provider [phone] Reason for Visit * Reason Onset Date Comments Cardiac Test Results 04/05/2024 Encounter Details Date Type Department Care Team (Late st Contact Info) Description 04/05/2024 Telephone [facility] [address] [facility] [address] [place] [phone] Phillip Cabral MD [address] [place] [address] [place] [address] Cardiac Test Results Social History Tobacco Use Types Packs/Day Years [...] as of this encounter Progress Notes * Arlen eHaly MA - 04/05/2024 3:54 PM EST Brittany spoke with patient. Patient aware she has mild nonobstructive coronary artery disease. Patient agreed to follow up for another echocardiogram in 3 yrs, patient will continue diltiazem, atorvastatin, and Eliquis. And Scheduled appointment to follow up with as request on 04/17/24 @ 1PM. * Phillip Cabral MD - 04/05/2024 1:19 PM EST Please call the patient to let her know that I reviewed the results of her recent cardiac tests: 1. Echocardiogram. The echocardiogram done on 03/09/2024 showed a normal cardiac function and mild insufficiency of the tricuspid valve. As such, would recommend for him to undergo a follow-up echocardiogram in 3 years for reevaluation of her mild tricuspid valve insufficiency. 2. Ambulatory commercial technician. The patient's heart remained in a normal rhythm throughout the monitoring period. She had brief episodes of SVT with a maximum duration of 2 minutes. As such, at this point, would recommend for the patient to continue her current therapy with diltiazem. 3. Cardiac CT scan. A cardiac CT scan was done at [facility] in March 2024. This study showed evidence [...] Description 05/10/2024 2:00 PM EST [facility] [place] 175 [facility] [address] [place] [phone] Shefali García MD 175 [facility] [address] [place] [address] 06/13/2024 10:45 AM EDT Office Visit [facility] Hematology Oncology [address] [place] [phone] Lee Berkowitz MD 271 [place] [address] 07/04/2024 10:00 AM EDT Office Visit [facility] - [place] [address] [place] [address] Millicent Dumont PA 444 [place], [place] 07/19/2024 1:15 PM EDT Office Visit Nephrology - [address] [phone] Orestes Harris MD 100 [facility] 200 [place] [phone] 09/06/2024 2:30 PM EDT Office Visit [facility]iology Associates - [facility] [address] [place] [address] Dr Craven [address] [place] [phone] Phillip Cabral MD [address] [place] [address] Dr Campo [address] [place] [address] documented as of this encounter Visit Diagnoses Not on filedocumented in this encounter Care Teams Clinical Asst Relationship Specialty Start Date End Date Estrellita Meadows MD [address] [place] [address] PCP - General Internal Medicine 08/01/20 documented as of this encounter
--- OUTSIDE RECORDS SUMMARY | 2024-05-03 13:14 | XMS_ITS | Encounter Summary ---
Author Organization [facility] Address [address] [place] [address] Care Team Providers Care Guzzler Builder Name Role Phone Estrellita Meadows MD Primary Care Provider [phone] Encounter Details Date Type Department Care Team ([facility] Contact Info) Description 01/06/2024 12:56 PM EDT [...] reports she was in the ER over theweekend with abdominal pain for the last 3 weeks. Patient states she was prescribed antibiotics anddischarged home. Patient still wearing Holter monitor. She states she is wearing it for a month andhas an established tombstone erector helper. PIV inserted without difficulty. Patient resting comfortably in chair with call carrillo in reach. 1425-Patient completed Feraheme without incident. PIV removed-intact. Patient has follow-up appointment with Dr. Berkowitz in place. Patient stable upon discharge. documented in this encounter Plan of Treatment Upcoming Encounters Date Type Department Care Team (Late st Contact Info) Description 05/10/2024 2:00 PM EST [facility] [address] [phone] Shefali García MD [address] [address] 06/13/2024 10:45 AM EDT Office Visit [facility] Hematology Oncology [address] [place] [phone] Lee Berkowitz MD 271 [place] [address] 07/04/2024 10:00 AM EDT Office Visit [facility] - [address] [phone] Millicent Dumont PA [address] [place] [address] 07/19/2024 1:15 PM EDT Office Visit Nephrology - [address] [phone] Orestes Harris MD [address] [phone] 09/06/2024 2:30 PM EDT Office Visit [facility] Cardiology Associates - [facility] Dr Peters [facility] Dr Craven [address] [place] [address] Phillip Cabral MD [address] [place] [address] Dr Campo [address] [place] [address] documented as of this encounter Visit Diagnoses Not on filedocumented in this encounter Care Teams Guzzler Builder Relationship Specialty Start Date End Date Estrellita Meadows MD [address] [place] [address] PCP - General Internal Medicine 08/01/20 documented as of this encounter
--- OUTSIDE RECORDS SUMMARY | 2024-05-03 13:14 | XMS_ITS | Encounter Summary ---
Author Organization [facility] Address [address] [place] [address] Care Team Providers Care Palliative Care Nurse Practitioner Name Role Phone Estrellita Meadows MD Primary Care Provider [phone] Encounter Details Date Type Department Care Team [...] unit policies/procedures upon arrival. Patient is mostly Nauruan speaking but does speak some Moroccan. She denies needing use of the store management trainee machine when offered. Thorough education on medication [...] Description 05/10/2024 2:00 PM EST [facility] [address] [phone] Shefali García MD [address] [address] 06/13/2024 10:45 AM EDT Office Visit [facility] Hematology Oncology [address] [place] [phone] Lee Berkowitz MD [address] [place] [address] 07/04/2024 10:00 AM EDT Office Visit Adult [facility] South - [address] [phone] Millicent Dumont PA [address] [place] [address] 07/19/2024 1:15 PM EDT Office Visit Nephrology - [address] [phone] Orestes Harris MD 100 [email or web address] [address] [place] [address] 09/06/2024 2:30 PM EDT Office Visit [facility] Cardiology Associates - [facility] [address] [place] [address] Phillip Cabral MD [address] [place] [address] Dr Campo [address] [place] [address] documented as of this encounter Visit Diagnoses Diagnosis Iron deficiency anemia secondary to blood loss (chronic) Personal history of other diseases of the digestive system documented in this encounter Care Teams Palliative Care Nurse Practitioner Relationship Specialty Start Date End Date Estrellita Meadows MD [address] [place] [address] PCP - General Internal Medicine 08/01/20 documented as of this encounter
--- OUTSIDE RECORDS SUMMARY | 2024-05-03 13:14 | XMS_ITS | Clinical Summary ---
Author Organization [facility] Address [address] [place] [address] Care Team Providers Care Registered Dental Hygienist Name Role Phone Estrellita Meadows MD Primary Care Provider [phone] Allergies No known active allergies Medications Medication Sig Dispensed Refills Start Date End Date Status Albuterol Sulfate 108 (90 Base) MCG/ACT AEPB Inhale into the lungs. 0 Active albuterol (PROVENTIL) (2.5 MG/3ML) 0.083% nebulizer solution Take 3 mL (2.5 mg total) by nebulization every 6 (six) hours as needed for wheezing. 0 Active ALPRAZolam (XANAX) 1 MG tablet Take 1 tablet (1 mg total) by mouth every night at bedtime as needed for sleep. 0 Active apixaban (ELIQUIS) 5 MG TABS tablet Take by mouth every 12 (twelve) hours. 0 Active atorvastatin (LIPITOR) tablet 20 mg Take 1 tablet (20 mg total) by mouth daily. 0 Active vitamin B-12 (CYANOCOBALAMIN) 500 MCG tablet Take 1 tablet (500 mcg total) by mouth daily. 0 Active dilTIAZem (CARDIZEM CD) 180 MG 24 hr capsule Take 1 capsule (180 mg total) by mouth daily. 0 Active omeprazole (PriLOSEC) 20 MG capsule Take 1 capsule (20 mg total) by mouth daily. 0 Active traZODone (DESYREL) 50 MG tablet Take 1 tablet (50 mg total) by mouth every night at bedtime. 0 Active venlafaxine (EFFEXOR) 75 MG tablet Take 1 tablet (75 mg total) by mouth 2 (two) times a day. 0 Active venlafaxine (EFFEXOR-XR) 150 MG 24 hr capsule Take 1 capsule (150 mg total) by mouth daily. 0 Active vitamin D3 (cholecalciferol) 25 MCG (1000 UT) tablet Take 2 tablets (50 mcg total) by mouth daily. 0 Active zolpidem (AMBIEN) 10 MG tablet Take 1 tablet (10 mg total) by mouth every night at bedtime as needed for sleep. 0 Active Active Problems Problem Noted Date Diagnosed Date Iron deficiency anemia due to chronic blood loss 11/11/2023 Family History Medical History Relation Name Comments Cancer Brother Relation Name Status Comments Brother Social History Tobacco Use Types Packs/Day Years Used Date Smoking Tobacco: Never Smokeless Tobacco: Never Alcohol Use Standard Drinks/Week Comments Not Currently 0 (1 standard drink = 0.6 oz pur e alcohol) Sex and Gender Information Value Date Recorded Sex Assigned at Not on file Gender Identity Not on file Sexual Orientation Not on file Job Start Date Occupation Industry Not on file Not on file Not on file Last Filed Vital Signs Vital Sign Reading Time Taken Comments Blood Pressure 156/68 01/06/2024 1:02 PM EDT Pulse 81 01/06/2024 1:02 PM EDT Temperature 36.8 ??C (98.2 ??F) 01/06/2024 1:02 PM ED T Respiratory Rate 18 01/06/2024 1:02 PM EDT Oxygen Saturation 95% 01/06/2024 1:02 PM EDT Inhaled Oxygen Concentration - - Weight 76.5 kg (168 lb 9.6 oz) 11/11/2023 10:14 AM EDT Height 152.4 cm (5') 10/28/2023 8:36 AM EDT Body Mass Index 32.93 10/28/2023 8:36 AM EDT Plan of Treatment Health Maintenance Due Date Last Done Comments Hepatitis C Screening 1945 Depression Screening 1957 BMI Counseling 08/24/1963 Preventative Health Evaluation 08/24/1963 Fall Risk Assessment 2010 Osteoporosis Screening (DEXA Scan) 2010 RSV Adult > 60+ Yrs or (1 - 1-dose 75+ series) 2020 COVID-19 Vaccine ( season) 2023 08/26/2021, 11/19/2020, 04/18/2020, Additional history exists Influenza Vaccine (#1) 2023 3, 12/25/2021, 11/13/2020, Additional history exists DTap / Tdap / Td (2 - Td or Tdap) 12/16/2028 12/16/2018 Pneumococcal Vaccine Completed 12/16/2018, 05/10/2018, 03/02/2016, Additional history exists Shingrix-Zoster Vaccine Completed 10/26/2019, 01/26 Hepatitis B Vaccines Aged Out No long er eligible based on patient's age to complete this topic RSV Ped < 20 months Aged Out No longe r eligible based on patient's age to complete this topic Care Teams Registered Dental Hygienist Relationship Specialty Start Date End Date Estrellita Meadows MD PCP - General Internal Medicine 10/05/23
--- OUTSIDE RECORDS SUMMARY | 2024-05-03 13:14 | XMS_ITS | Encounter Summary ---
Author Organization [employer] Address [address] [facility] [facility] [address] [place] [address] Care Team Providers Care Clinical Nursing Intern Name Role Phone Unavailable Primary Care Provider Unavailabl e Encounter Details Date Type Department Care Team (Latest Contact Info) Description 05/08/2019 Abstract C CONVERSIONS Dental, Provider, DDS Social History Tobacco Use Types Packs/Day Years Used Date Smoking Tobacco: Never Assessed Comments Unknown Sex and Gender Information Value Date Recorded Sex Assigned at Female 01/12/2022 10:25 AM EDT Legal Sex Female 10:25 AM EDT Gender Identity Female 01/12/2022 10:25 AM EDT Sexual Orientation Choose not to disclose 2021 10:25 AM EDT documented as of this encounter Plan of Treatment Not on file documented as of this encounter Visit Diagnoses Not on filedocumented in this encounter
[2024-05-03 13:23] VITALS: BP 122/60; PULSE 93; O2SAT 92; BMI 33.0
--- NOTE | 2024-05-03 13:23 | MHC.OFFVIS ---
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 Patient has been tried on Xolair, however she has developed allergic reaction.? She has been switched to Nucala however she did not have significant symptomatic response and she stopped using that. Now she has been using Tezspire and reports significantly improved symptom control. She she also continues on Trelegy and albuterol MDI for asthma symptoms and on Dymista for the allergic component. Today she does complain of mild bronchitic exacerbation symptomatic with productive cough, but no wheezing. [facility] Social History Patient Tobacco Use Status: Never used Tobacco Review of Systems Const Denies daytime sleepiness, Denies excessive sweating, Denies fatigue, Denies fever(s), Denies lethargy, Denies malaise, Denies night sweats, Denies snoring and Denies weight loss Eyes Denies blurry vision and Denies itchy eyes ENT Denies nasal congestion, Denies post nasal drip, Denies sinus pain, Denies sinus pressure and Denies other ( Thrush) Card Denies chest pain, Denies pedal edema, Denies dyspnea, Denies orthopnea and Denies paroxysmal nocturnal dyspnea Resp Denies cough, Denies hemoptysis, Denies excessive phlegm production, Denies dyspnea, Denies snoring and Denies wheezing GI Denies abdominal pain and Denies heartburn Musc Denies myalgias, Denies arthralgias and Denies joint swelling Skin/Breast Denies rash Neuro Denies memory loss and Denies seizure-like activity Psych Denies abnormal sleep pattern, Denies anxiety and Denies memory loss Endo Denies excessive sweating, Denies fatigue and Denies heat intolerance Noah/Lymph Denies easy bruising Aller/Immun Denies itchy eyes, Denies seasonal rhinorrhea and Denies wheezing Physical Exam Vital Signs: Last Vital Signs Pulse 93 05/03/24 13:23 BP 122/60 05/03/24 13:23 Pulse Ox 92 05/03/24 13:23 Oxygen Delivery Method Room Air 05/03/24 13:23 BMI result Body Mass Index 33.0 Const General: no acute distress and alert Nutritional Appearance: not obese Orientation/consciousness: Other orientation findings ( oriented) HEENT Head: Yes atraumatic Eyes General: appearance normal, both eyes and all related structures Sclerae: sclerae normal EOM: EOMs intact bilaterally Neck Neck: Yes supple Lymphatic: no lymphadenopathy noted Resp Effort & Inspection: normal respiratory effort and no use of accessory muscles Auscultation: clear to auscultation bilaterally Cardio Rate: regular rate Rhythm: regular rhythm Heart sounds: no gallops, no murmurs and no rubs Skin General skin exam: other ( warm) Extrem General: No clubbing, No cyanosis and No edema Assessment & Plan Assessment & Plan (1) Severe persistent allergic asthma: Code(s): J45.50 - Severe persistent asthma, uncomplicated Category: Medical Plan: Well controlled on current regimen of Tezspire, Trelegy, duo nebs, and albuterol MDI. Continue current regimen. Will treat bronchitic exacerbation with a course of azithromycin. (2) Environmental allergies: Code(s): Z91.09 - Other allergy status, other than to drugs and biological substances Category: Medical Plan: Well controlled on Tezspire. Continue current regimen. Medications: New azithromycin For 250 mg dose pack: take 500 mg today (day 1), then 250 mg for 4 days (days 2-5) PO 6 tabs 0RF Coding Level of Care Code Est Pt Level 4 (45120) Diagnoses Severe persistent allergic asthma J45.50 Environmental allergies Z91.09
== END 2024-05-03 13:39 | disposition home or self-care (01) ==
PROVIDERS: PCP Internal Medicine; Visit Provider Internal Medicine Pulmonary Disease
DX: J45.50 Severe persistent asthma, uncomplicated (principal); Z91.09 Other allergy status, other than to drugs and biological substances
CPT/HCPCS: 99214

== ENCOUNTER → 2024-05-03 13:00 | Outpatient (BNVA) | payer OTHER, SELFPAY | PROVIDERS: PCP Internal Medicine; Visit Provider Internal Medicine Pulmonary Disease | DX: J45.50 Severe persistent asthma, uncomplicated (principal); Z91.09 Other allergy status, other than to drugs and biological substances | CPT/HCPCS: 99212 ==

== ENCOUNTER 2024-08-30 10:14 | Outpatient (AMB) | payer OTHER, SELFPAY ==
[2024-08-30 10:25] VITALS: BP 130/82; PULSE 80; TEMP 36.7; O2SAT 94; BMI 33.0
--- NOTE | 2024-08-30 10:25 | MHC.OFFWIV ---
Intake Vital Signs 08/30/24 10:25 Height 5 ft Weight 169 lb BMI 33.0 BP 130/82 Blood Pressure Location Lt brachial Position Sitting Pulse 80 Pulse Source Pulse Oximeter Temp 98.1 F Temp Source Oral Pulse Oximetry (%) 94 Oxygen Delivery Method Room Air Intake Visit Reasons: EP fall, lt foot pain Intake Note: Pt presents to the office today for c/o falling on Wednesday and has pain in her left leg and foot since then. Pt denies hitting her head or any LOC. Patient Tobacco Use Status: Never used Tobacco Allergies Seasonal Allergies Allergy (Verified 08/30/24 10:29) Unknown HPI HPI Comments History of Present Illness Details History of Present Illness - The patient is a 79-year-old [place] speaking female presenting with an case management specialist for a fall in her home on Wednesday. - Occurred when the patient tripped over a shopping cart in her home on a Wednesday afternoon, while preparing to cook. - She fell on her right side resulting in pain and swelling in the ankle, knee, and lower leg of the right side. - She has bruises in the ankle and lower right leg. - Occasionally experiences numbness, which subsides quickly. - Denies any head trauma or loss of consciousness post-fall - Utilizes a cane for walking and describes some level of mobility despite discomfort. - Current medications include Tylenol and a topical cream for the foot. - She has been able to walk. - She denies LOC or head injury. She denies CP, SOB, numbness, tingling, back pain, neck pain, or pain in the upper extremities. She denies hip pain. Physical Exam General: Cooperative, healthy appearing, comfortable, no acute distress and well developed Orientation: Patient oriented x3 Respiratory: Normal respiratory effort and able to speak in complete sentences. Skin: No rashes or lesions noted. Multiple contusions noted on the right knee, lower leg and medial ankle. No abrasions noted. Varicose veins noted. Neuro: Patient oriented x3, CN 2-12 intact, gait normal Back/spine: no TTP cervical, thoracic or lumbar spine. No step offs noted. Extremities: Right lower leg has contusions and the ankle is swollen and bruised. FROM of the right ankle and knee. TTP of the right patella, anterior tib/fib, and right medial malleolus. No abrasions noted. Strength is 5/5 on the LE bilaterally. Ambulates with a steady gait and no cane. Patient was informed and verbally consented to the use of an ambient scribe for clinic note documentation during this visit. [facility] Social History Patient Tobacco Use Status: Never used Tobacco Review of Systems Const All systems reviewed & are unremarkable except as noted in HPI and below Physical Exam Vital Signs: Last Vital Signs Temp 98.1 F 08/30/24 10:25 Pulse 80 08/30/24 10:25 BP 130/82 08/30/24 10:25 Pulse Ox 94 08/30/24 10:25 Oxygen Delivery Method Room Air 08/30/24 10:25 BMI result Body Mass Index 33.0 Assessment & Plan Assessment & Plan (1) Fall at home: Code(s): W19.XXXA - Unspecified fall, initial encounter; Y92.009 - Unspecified place in unspecified non-institutional (private) residence as the place of occurrence of the external cause Qualifiers: Encounter type: initial encounter Qualified Code(s): W19.XXXA - Unspecified fall, initial encounter; Y92.009 - Unspecified place in unspecified non-institutional (private) residence as the place of occurrence of the external cause Plan Most likely contusion vs sprain vs fracture Plan 1. Contusion Of The Right Lower Extremity - X-rays ordered for the right ankle, knee, and lower leg. - Recommended continuation of analgesics and RICE protocols. 2. Swelling Of The Right Ankle - X-ray imaging part of same order for contusion to investigate potential fractures. - Advised continued use of a cane for mobility. Orders: Orders XR tibia fibula RT 2V Today W19.XXXA - Unspecified fall, initial encounter XR ankle RT min 3V Today W19.XXXA - Unspecified fall, initial encounter Coding Level of Care Code New Pt Level 4 (30561) Diagnoses Fall in home, initial encounter W19.XXXA; Y92.009 Encounter type: initial encounter
--- OUTSIDE RECORDS SUMMARY | 2024-08-30 11:33 | XMS_ITS | Clinical Summary ---
Author Organization [facility] Address [address] [place] [address] Phone Care Team Providers Care Hand Sprayer Name Role Phone Estrellita Meadows MD Primary Care Provider [phone] Allergies Active Allergy Reactions Criticality Noted Date Comments Dog Dander 02/22/2015 House Dust 02/22/2015 Mold 02/22/2015 Medications albuterol 2.5 mg /3 mL (0.083 %) nebulizer solution Inhale 3 mL (2.5 mg total) by mouth every 6 (six) hours if needed for wheezing. 07/01/19 24 Active albuterol HFA (PROAIR HFA ; PROVENTIL HFA ; VENTOLIN HFA) 90 mcg/actuation inhaler Inhale 2 Puffs into the lungs every 4 hours as needed for Cough or Wheezing. 12/31/19 18 Active ALPRAZolam (XANAX) 1 mg tablet Take 1 tablet (1 mg total) by mouth at bedtime as needed (sleep). 08/02/19 21 Active traZODone (DESYREL) 50 mg tablet Take 1 tablet (50 mg total) by mouth at bedtime. Active venlafaxine XR (EFFEXOR-XR) 75 mg 24 hr capsule Take 1 capsule (75 mg total) by mouth 2 (two) times a day. 09/23/19 21 Active venlafaxine XR (EFFEXOR-XR) 150 mg 24 hr capsule Take 1 capsule (150 mg total) by mouth 1 (one) time each day. 03/03/20 21 Active cyanocobalamin (VITAMIN B-12) 500 mcg tablet Take 1 tablet (500 mcg total) by mouth 1 (one) time each day. Active cholecalciferol (VITAMIN D-3) 25 mcg (1,000 unit) tablet Take 2 tablets (2,000 Units total) by mouth 1 (one) time each day. Active atorvastatin (LIPITOR) 40 mg tablet Take 1 tablet (40 mg total) by mouth 1 (one) time each day. 90 each 2 03/21/19 25 Active dilTIAZem CD (CARDIZEM CD) 120 mg 24 hr capsuleIndicatio ns:Paroxysmal atrial fibrillation (CMS/HCC V24, CMS/HCC V28) Take 1 capsule (120 mg total) by mouth 2 (two) times a day. 60 each 11 04/17/19 25 026 Active omeprazole (PriLOSEC) [address] capsule TAKE 1 CAPSULE BY MOUTH EVERY DAY 90 capsule 1 05/03/19 25 Active apixaban (ELIQUIS) 5 mg tablet Take 1 tablet (5 mg total) by mouth every 12 (twelve) hours. 180 tablet 2 05/17/19 25 Active zolpidem (AMBIEN) 5 mg tablet Take 1 tablet (5 mg total) by mouth at bedtime as needed. Max Daily Amount: 5 mg 08/02/19 25 Active zolpidem (AMBIEN) 10 mg tablet 05/16/19 25 025 Discontinued Active Problems Problem Noted Date Diagnosed Date Coronary artery disease invo lving eklutna coronary artery of eklutna heart without angina pectoris 06/11/2024 Assessment & Plan (06/11/2024 8:43 PM EDT): The patient has a history of coronary artery disease. Cardiac CT scan done in March 2024 showed mild nonobstructive CAD. The patient continues on medical therapy with atorvastatin and diltiazem. She is also on antithrombotic therapy with Eliquis. Currently, she denies any anginal symptoms. As such, we will continue her current therapy. Iron deficiency anemia due to chronic blood loss 11/12/2023 Degenerative joint disease (DJD) of lumbar spine 10/22/2023 B12 deficiency 09/24/2023 Chronic obstructive pulmonar y disease (CMS/HCC V24, CMS/HCC V28) 09/24/2023 Requires supplemental oxygen 09/24/2023 Colon polyp 05/18/2023 Overview (02/27/2024): 05/08 serrated polyp removed Lower GI bleed 05/18/2023 Overview (02/27/2024): 2 diverticular bleed, banded Atrial fibrillation ([facility] V24, [facility] V28) 1 04/13/2022 Assessment & Plan (06/11/2024 8:43 PM EDT): The patient has a history of atrial fibrillation. The patient continues on rate control therapy with diltiazem. The patient states that taking diltiazem extended release 240 mg once a day gives her an upset stomach and prefers to take diltiazem extended release 120 mg orally twice a day. A prescription for diltiazem extended release 120 mg orally twice daily was sent to the pharmacy. Also, the patient has an elevated [id number] score and continues on anticoagulation therapy with apixaban. No episodes of abnormal bleeding have been noted. Will continue current therapy. Orders: dilTIAZem CD (CARDIZEM CD) 120 mg 24 hr capsule; Take 1 capsule (120 mg total) by mouth 2 (two) times a day. CKD (chronic kidney disease) stage 3, GFR 30-59 ml/min ([facility] V24, [facility] V28) 08/01/2020 Prediabetes 08/01/2020 Overview (02/27/2024): HA1c of 5.7% Vitamin D insufficiency 08/01/2020 External hemorrhoid 2018 Pure hypercholesterolemia 01/12/2017 Anxiety 03/02/2016 Asthma 02/22/2015 Overview (02/27/2024): Patient follows with Dr. Hamilton but last seen 2011 HTN (hypertension) 08/17/2014 Assessment & Plan (06/11/2024 8:43 PM EDT): The patient has a history of arterial hypertension. The patient's blood pressure today was noted to be well controlled. We'll continue the current antihypertensive medication regimen. Glomerulonephritis 07/28/2013 IBS (irritable bowel syndrome) 06/05/2011 Diverticulosis 07/16/2010 Overview (02/27/2024): Incidental at [facility] 2006. GERD (gastroesophageal reflux disease) 0 Overview (02/27/2024): Negative EGD 2010. Lung nodule 04/19/2008 Overview (02/27/2024): CXR negative, 12/03/10 Depression 01/19/2008 Overview (02/27/2024): F/u Dr. Bolton Osteopenia 01/19/2008 Overview (02/27/2024): 12/2010: T-score lumbar (-1.0); hip (-0.4) 02/2018: T-score lumbar (-1.3); hip (-0.7); FRAX score 4.9% 09/2020: T-score lumbar (-1.2); hip (-0.6); FRAX score 7.8% 04/07 T score spine -1.6 hip -0.6 FRAX score 8.3% 10 year fracture risk Resolved Problems Problem Noted Date Diagnosed Date Resolved Date Hyperlipidemia LDL goal <100 02/27/2024 03/01/2024 Syncope 12/08/2023 06/11/2024 Overview (02/27/2024): Last Assessment & Plan: The patient had an episode of syncope in September 2023. She was treated at [facility]. At the time, it was thought that her syncope was secondary to benzodiazepine use. However, the patient does have a history of arrhythmias in the form of paroxysmal atrial fibrillation. As such, cardiac monitoring is indicated. Will proceed with a 30-day ambulatory hot mill observer to rule out any arrhythmias or pauses that may have been associated with her episode of syncope. Will also order an echocardiogram to rule out any underlying structural heart disease given her episode of syncope. Chronic respiratory failure ([facility]/HCC V24, [facility]/HCC V28) 09/24/2023 04/17/2024 Chest pain 05/12/2023 04/17/2024 Overview (02/27/2024): Negative ETT 07/06 Hiatal hernia 04/29/2010 06/11/2024 Overview (02/27/2024): 4 cm hiatal hernia at EGD 04/29/2010. Encounters Date Type Department Care Team Description 08/10/2024 10:00 AM EDT Office Visit [address] [phone] Millicent Dumont PA B12 deficiency (Primary Dx); Anxiety; Moderate persistent asthma without complication; Paroxysmal atrial fibrillation (CMS/HCC V24, [facility] V28); Vitamin D insufficiency; Pure hypercholesterolemia; Prediabetes; Osteopenia, unspecified location; Primary hypertension; Coronary artery disease involving eklutna coronary artery of eklutna heart without angina pectoris; Chronic obstructive pulmonary disease, unspecified COPD type ([facility]/HCC V24, CMS/HCC V28); Gastroesophageal reflux disease without esophagitis; Requires supplemental oxygen 07/06/2024 1:00 PM EDT Consult Orthopedic Surgery - [place] [address] [facility] [address] [place] [phone] Elian Dhaliwal MD Dog bite of left thumb, initial encounter 07/04/2024 10:42 AM EDT - 07/04/2024 11:59 PM EDT Hospital Encounter [address] [phone] Dog bite of left thumb, initial encounter Discharge Disposition: Home or Self Care 07/04/2024 10:00 AM EDT Office Visit [address] [phone] Millicent Dumont PA Dog bite of left thumb, initial encounter (Primary Dx) 06/13/2024 10:45 AM EDT Office Visit [facility] Hematology Oncology [address] [place] [phone] Lee Berkowitz MD Iron deficiency anemia due to chronic blood loss (Primary Dx) from Last 3 Months Immunizations Name Administration [...] repeat due to age COLONOSCOPY 10/26/2016 At [facility], sigmoid diverticulosis, no polyps. No repeat needed [...] Depression GI bleed Anxiety DX:Anxiety Atrial fibrillation ([facility] V24, [facility] V28) Fibromyalgia Vitamin D deficiency Osteopenia Pulmonary nodule [...] Sign Reading Time Taken Comments Blood Pressure 132/76 08/10/2024 10:08 AM EDT Pulse 77 08/10/2024 10:08 AM EDT Temperature 36.1 C (96.9 F) 08/10/2024 10:08 AM EDT Respiratory Rate 16 08/10/2024 10:08 AM EDT Oxygen Saturation 93% 08/10/2024 10:08 AM EDT Inhaled Oxygen Concentration - - Weight 74.8 kg (165 lb) 08/10/2024 10:08 AM EDT Height 152.4 cm (5') 08/10/2024 10:08 AM EDT Body Mass Index 32.22 08/10/2024 10:08 AM EDT Plan of Treatment Upcoming Encounters Date Type Department Care Team (Late st Contact Info) Description 09/06/2024 2:30 PM EDT Office Visit [facility] [address] [place] [address] [place] [phone] Phillip Cabral MD [address] [place] [address] [address] [place] [address] 02/19/2025 11:00 AM EST Office Visit Adult Medicine [facility] [address] [place] [phone] Estrellita Meadows MD [address] [place] [address] Health Maintenance Due Date Last Done Comments Social Influencers of Health Screening 02/21/2022 COVID-19 Vaccine (7 - Pfizer risk 2023- season) 2024 12/08/2023, 01/30/2022, 08/26/2021, Additional history exists Depression Screening 10/21/2024 10/22/2023 Falls Risk Assessment 10/21/2024 10/22/2023 Medicare Annual Wellness Visit 10/21/2024 10/22/2023 Osteoporosis Screening (Bone Density Screening) 03/18/2025 03/18/2023, 10/02/2020, 02/22/2018 Hypertension/CHF/CAD Annual BMP Blood Test 08/10/2025 08/10/2024, 04/25/2024, 03/14/2024, Additional history exists DTaP,Tdap,and Td Vaccines (3 - Td or Tdap) 12/16/2028 12/16/2018, 06/02/2005 Cholesterol Screening (Lipid Panel) 03/14/2029 03/14/2024, 03/01/2024 Pneumococcal Vaccine: 50+ Years Completed 12/16/2018, 05/10/2018, 03/02/2016, Additional history exists Zoster Vaccines Completed 10/26/2019, 01/26/2019 Hepatitis C Screening Completed 02/27/2020 Influenza Vaccine Completed 12/08/2023, , 12/25/2021, Additional history exists RSV Immunization Adult Patients Completed 12/08/2023 HIB Vaccines Aged Out No [...] age to complete this topic Meningococcal B Vaccine Aged Out No l onger eligible based on patient's age to complete this topic RSV Immunization Patients Under 20 months Aged Out No longer eligible based on patient's age to complete this topic Varicella Vaccines Aged Out No longer eligible based on patient's age to complete this topic Procedures Procedure Name Priority Date/Time Associated Diagnosis Comments HEMOGLOBIN A1C Routine 08/10/2024 10:54 AM EDT Prediabetes COMPREHENSIVE METABOLIC PANEL Routine 08/10/2024 10:54 AM EDT Prediabetes Primary hypertension COMPLETE BLOOD COUNT Routine 08/10/2024 10:54 AM EDT Prediabetes Primary hypertension XR HAND 3+ VIEWS LEFT Routine 07/04/2024 10:51 AM EDT Dog bite of left thumb, initial encounter LIPID PANEL WITH REFLEX TO DIRECT LDL Routine 03/14/2024 1:38 PM EST Chest pain Lung nodule Colon polyp Hiatal hernia Moderate persistent asthma without complication Syncope B12 deficiency Diverticulosis DXA BONE DENSITY STUDY 1+ SITS AXIAL SKEL Routine 03/18/2023 9:50 AM EST Other specified disorders of bone density and structure, multiple sites from Last 3 Months or Most Recently Relevant to Health Maintenance Results * (ABNORMAL) Complete blood count (08/10/2024 10:54 AM EDT) WBC 5.1 4.8 - 10.8 K/mcL LAB HEMETOLOGY METHOD 08/10/2024 12:29 PM [facility] RBC 4.60 3.80 - 4.80 M/mcL LAB HEMETOLOGY METHOD 08/10/2024 12:29 PM [facility] Hemoglobin 14.0 11.5 - 16.0 g/dL LAB HEMETOLOGY METHOD 08/10/2024 12:29 PM [facility] Hematocrit 46.0 35.0 - 47.0 % LAB HEMETOLOGY METHOD 08/10/2024 12:29 PM [facility] MCV 100.9(H) 79.0 - 98.0 FL LAB HEMETOLOGY METHOD 08/10/2024 12:29 PM [facility] MCH 30.7 27.0 - 32.0 pcg LAB HEMETOLOGY METHOD 08/10/2024 12:29 PM [facility] MCHC 30.4(L) 32.0 - 37.0 g/dL LAB HEMETOLOGY METHOD 08/10/2024 12:29 PM [facility] RDW 12.6 11.0 - 15.0 % LAB HEMETOLOGY METHOD 08/10/2024 12:29 PM [facility] Platelets 189 130 - 400 K/mcL LAB HEMETOLOGY METHOD 08/10/2024 12:29 PM EDT [facility] MPV 10.9 7.0 - 11.0 FL LAB HEMETOLOGY METHOD 08/10/2024 12:29 PM EDT [facility] NRBC 0.0 <1.0 % LAB HEMETOLOGY METHOD 08/10/2024 12:29 PM EDT [facility] NRBC Absolute 0.00 <0.10 K/mcL LAB HEMETOLOGY METHOD 08/10/2024 12:29 PM EDT [facility] Blood Venous blood specimen / Unknown Venipuncture / Unknown 08/10/2024 10:54 AM EDT 08/10/2024 10:54 AM EDT us Millicent GRIFFITHS LAB BLOOD ORDERABLES Final Re sult Performing Organization Address City/[facility]/ZIP Co de Phone Number [facility] [address] [place] [address], [place] [phone] * Hemoglobin A1c (08/10/2024 10:54 AM EDT) Hemoglobin A1C 5.1 <6.5 % LAB CHEMISTRY METHOD 08/10/2024 3:05 PM EDT [facility] Mean Bld Glu Estim. 100 mg/dL LAB CHEMISTRY METHOD 08/10/2024 3:05 PM EDT [facility] Blood Venous blood specimen / Unknown Venipuncture / Unknown 08/10/2024 10:54 AM EDT 08/10/2024 10:54 AM EDT us Millicent GRIFFITHS LAB BLOOD ORDERABLES Final Re sult [facility] [address] [place] [address], [place] [phone] * (ABNORMAL) Comprehensive metabolic panel (08/10/2024 10:54 AM EDT) Sodium 136 133 - 145 mmol/L LAB CHEMISTRY METHOD 08/10/2024 3:25 PM [facility] Potassium 4.4 3.5 - 5.5 mmol/L LAB CHEMISTRY METHOD 08/10/2024 3:25 PM [facility] Chloride 97 96 - 110 mmol/L LAB CHEMISTRY METHOD 08/10/2024 3:25 PM [facility] CO2 37(H) 21 - 32 mmol/L LAB CHEMISTRY METHOD 08/10/2024 3:25 PM [facility] Anion Gap 2(L) 3 - 11 LAB CHEMISTRY METHOD 08/10/2024 3:25 PM [facility] Glucose 92 70 - 100 mg/dL LAB CHEMISTRY METHOD 08/10/2024 3:25 PM [facility] BUN 15 5 - 25 mg/dL LAB CHEMISTRY METHOD 08/10/2024 3:25 PM [facility] Creatinine 0.87 0.50 - 1.10 mg/dL LAB CHEMISTRY METHOD 08/10/2024 3:25 PM [facility] eGFR 68 >=60 mL/min/1. 73m2 LAB CHEMISTRY METHOD 08/10/2024 3:25 PM [facility] Comment:Calculation based on the Chronic Kidney Disease Epidemiology Collaboration (CKD-EPI) equation refit without adjustment for race. BUN/Creatinine Ratio 17.2 LAB CHEMISTRY METHOD 08/10/2024 3:25 PM [facility] Calcium 9.8 8.5 - 10.5 mg/dL LAB CHEMISTRY METHOD 08/10/2024 3:25 PM [facility] AST (SGOT) 16 10 - 42 unit/L LAB CHEMISTRY METHOD 08/10/2024 3:25 PM [facility] ALT (SGPT) 19 10 - 60 unit/L LAB CHEMISTRY METHOD 08/10/2024 3:25 PM EDT [facility] Alkaline Phosphatase 101 42 - 121 unit/L LAB CHEMISTRY METHOD 08/10/2024 3:25 PM EDT [facility] Total Protein 7.8 6.0 - 8.0 g/dL LAB CHEMISTRY METHOD 08/10/2024 3:25 PM EDT [facility] Albumin 3.8 3.2 - 5.0 g/dL LAB CHEMISTRY METHOD 08/10/2024 3:25 PM EDT [facility] Total Bilirubin 0.3 0.0 - 1.4 mg/dL LAB CHEMISTRY METHOD 08/10/2024 3:25 PM EDT [facility] Blood Venous blood specimen / Unknown Venipuncture / Unknown 08/10/2024 10:54 AM EDT 08/10/2024 10:54 AM EDT us Millicent GRIFFITHS LAB BLOOD ORDERABLES Final Re sult [facility] [address] [place] [address], [place] [phone] * XR Hand 3+ Views Left (07/04/2024 10:51 AM EDT) Anatomical Region Laterality Modality Upper Extremities, Hand Left Radiogra phic Imaging 07/04/2024 4:59 PM EDT Impressions 07/04/2024 5:08 PM EDT 1. No acute fracture or dislocation of the left hand. 2. Moderate joint space narrowing at the base of thumb 3. No radiopaque foreign bodies -------- FINAL REPORT -------- Dictated By: Troy Duff Dictated Date: 07/04/2024 16:59 ET Assigned Physician: Troy Duff Reviewed and Electronically Signed By: Troy Duff Signed Date: 07/04/2024 17:08 ET Workstation ID: [id number] Transcribed By: Self Edit Transcribed Date: 07/04/2024 16:59 ET Narrative 07/04/2024 5:08 PM EDT HISTORY: dog bite wound left thumb dog bite TECHNIQUE: 3 views of the left hand COMPARISON: None FINDINGS: There is normal mineralization with no evidence of fracture or malalignment. There is moderate joint space narrowing with subchondral sclerosis at the base of the thumb. There is mild joint space narrowing at the 4th and 5th DIP joints with subchondral sclerosis. No radiopaque foreign bodies. Procedure Note Troy Duff MD - 07/04/2024 HISTORY: dog bite wound left thumb dog bite TECHNIQUE: 3 views of the left hand COMPARISON: None FINDINGS: There is normal mineralization with no evidence of fracture ormalalignment. There is moderate joint space narrowing with subchondralsclerosis at the base of the thumb. There is mild joint space narrowingat the 4th and 5th DIP joints with subchondral sclerosis. No radiopaqueforeign bodies. IMPRESSION: 1. No acute fracture or dislocation of the left hand. 2. Moderate joint space narrowing at the base of thumb 3. No radiopaque foreign bodies -------- FINAL REPORT -------- Dictated By: Troy Duff Dictated Date: 07/04/2024 16:59 ET Assigned Physician: Troy Duff Reviewed and Electronically Signed By: Troy Duff Signed Date: 07/04/2024 17:08 ET Workstation ID: [id number] Transcribed By: Self Edit Transcribed Date: 07/04/2024 16:59 ET us Millicent GRIFFITHS IMG XR PROCEDURES Final Resul t * (ABNORMAL) Lipid panel with reflex to direct LDL (03/14/2024 1:38 PM EST) Cholesterol 216(H) 0 - 200 mg/dL LAB CHEMISTRY METHOD 03/14/2024 5:26 PM EST [facility] Triglycerides 95 0 - 150 mg/dL LAB CHEMISTRY METHOD 03/14/2024 5:26 PM EST [facility] HDL 113 >=40 mg/dL LAB CHEMISTRY METHOD 03/14/2024 5:26 PM EST [facility] LDL Calculated 84 0 - 100 mg/dL LAB CHEMISTRY METHOD 03/14/2024 5:26 PM EST [facility] VLDL Cholesterol Titi 19 mg/dL LAB CHEMISTRY METHOD 03/14/2024 5:26 PM EST [facility] Non HDL Chol. (LDL+VLDL) 103 <145 mg/dL LAB CHEMISTRY METHOD 03/14/2024 5:26 PM EST [facility] Chol/HDL Ratio 1.9 0.0 - 4.4 LAB CHEMISTRY METHOD 03/14/2024 5:26 PM EST [facility] Blood Venous blood specimen / Unknown Venipuncture / Unknown 03/14/2024 1:38 PM EST 03/14/2024 1:38 PM EST Phillip Cabral MD LAB BLOOD ORDERABLES F inal Result [facility] [address] [place] [address], * DXA BONE DENSITY STUDY 1+ SITS AXIAL SKEL (03/18/2023 9:50 AM EST) Anatomical Region Laterality Modality Bone Densitometr y 11/17/2022 9:48 AM EDT Narrative 03/18/2023 4:04 PM EST STUDY: DUAL ENERGY X-RAY ABSORPTIOMETRY / DXA REASON FOR EXAM: Female, 77 years old disorder of bone or cartilage TECHNIQUE: Bone Mineral Density (BMD) measurements of the lumbar spine and left hip were obtained using [employer] W ([id number]/N [id number]). COMPARISON: October 02, 2020 FINDINGS: L1-L2-L4 BMD: 0.854 g/cm2 L1-L2-L4 T score: -1.6. This corresponds to osteopenia. This represents a -4.7* % decrease in bone density compared with prior exam from October 02, 2020. Left femoral neck BMD: 0.782 g/cm2 Left femoral neck T score: -0.6. This corresponds to Normal bone density. Left total [...] Osteopenia At or below -2.5 SD Osteoporosis Procedure Note Linda Schuster MD - 11/01/2023 STUDY: DUAL ENERGY X-RAY ABSORPTIOMETRY / DXA REASON FOR EXAM: Female, 77 years old disorder of bone or cartilage TECHNIQUE: Bone Mineral Density (BMD) measurements of the lumbar spineand left hip were obtained using [employer] W (S/N [id number]). COMPARISON: October 02, 2020 FINDINGS: L1-L2-L4 BMD: [...] Most Recently Relevant to Health Maintenance Insurance [facility] MEDIC[facility] Member Subscriber Plan / Payer (Ef fective 2013-Present) Name:Amarilys Birch Relation to Subscriber:Self Name:Amarilys Birch Payer ID:[id number] Group ID:[id number] Type:Not on file Address: [place] [address] [address] [id number] Care Teams Hand Sprayer Relationship Specialty Start Date End Date Estrellita Meadows MD [address] [place] [id number] PCP - General Internal Medicine 08/01/20
== END 2024-08-30 11:52 | disposition home or self-care (01) ==
PROVIDERS: PCP Internal Medicine; Visit Provider Physician Assistant Medical
DX: S80.11XA Contusion of right lower leg, initial encounter (principal); R22.41 Localized swelling, mass and lump, right lower limb; W19.XXXA Unspecified fall, initial encounter

== ENCOUNTER 2024-08-30 10:59 | Outpatient (REF) | payer OTHER, SELFPAY ==
--- NOTE | ~2024-08-30 | XR_ITS ---
EXAMINATION: XR TIBIA AND FIBULA, RIGHT CLINICAL INFORMATION: W19.XXXA - Unspecified fall, initial encounter COMPARISON: None available. TECHNIQUE: AP and lateral views of the right tibia and fibula were obtained. FINDINGS: No fracture. No osseous lesions. Mild soft tissue reticulation consistent with edema. XR/XR tibia fibula RT 2V IMPRESSION: Unremarkable right tibia and fibula. Electronically signed by: Cezar Morton MD 08/30/2024 11:36 AM EDT
--- NOTE | ~2024-08-30 | XR_ITS ---
EXAMINATION: XR KNEE, RIGHT CLINICAL INFORMATION: W19.XXXA - Unspecified fall, initial encounter COMPARISON: None available. TECHNIQUE: Four views of the right knee. FINDINGS: No fracture, dislocation, or suspicious bone lesion. Normal bone mineralization. Normal alignment. Mild osteoarthrosis in the medial compartment and patellofemoral compartment. There are both superior and inferior patellar enthesophytes. No significant joint effusion. Soft tissues appear normal. XR/XR knee RT 4V IMPRESSION: 1. No acute bony abnormalities of the right knee. 2. Mild medial and patellofemoral compartment osteoarthrosis. Electronically signed by: Wes Espinal MD 08/30/2024 11:32 AM EDT
--- NOTE | ~2024-08-30 | XR_ITS ---
EXAMINATION: XR ANKLE, RIGHT CLINICAL INFORMATION: W19.XXXA - Unspecified fall, initial encounter COMPARISON: None available. TECHNIQUE: AP, lateral, and mortise views of the right ankle. FINDINGS: No fracture. Alignment is anatomic. No erosions. Joint spaces are maintained. The mortise is intact. The talar dome is normal. There is a small plantar calcaneal spur. There is diffuse circumferential soft tissue swelling. XR/XR ankle RT min 3V IMPRESSION: No fracture or dislocation. Soft tissue swelling. Electronically signed by: Wes Espinal MD 08/30/2024 11:35 AM EDT
== END 2024-08-30 11:00 | disposition home or self-care (01) ==
LOC: HO.HMGCX 10:59
PROVIDERS: PCP Internal Medicine; Visit Provider Physician Assistant Medical
DX: M79.605 Pain in left leg (principal); M79.672 Pain in left foot; W19.XXXA Unspecified fall, initial encounter; Y92.009 Unspecified place in unspecified non-institutional (private) residence as the place of occurrence of the external cause
CPT/HCPCS: 73564; 73590; 73610; 99212

== ENCOUNTER → 2024-08-30 11:03 | Outpatient (BNV) | payer OTHER, SELFPAY | PROVIDERS: PCP Internal Medicine; Visit Provider Radiology Diagnostic Radiology | DX: M17.11 Unilateral primary osteoarthritis, right knee (principal); M79.81 Nontraumatic hematoma of soft tissue; R60.9 Edema, unspecified | CPT/HCPCS: 73564; 73590; 73610 ==

== ENCOUNTER 2024-09-04 09:47 | Outpatient (AMB) | payer OTHER, SELFPAY ==
--- OUTSIDE RECORDS SUMMARY | 2024-09-04 10:38 | XMS_ITS | Clinical Summary ---
Author Organization [facility] Address [address] [place] [address] Phone Care Team Providers Care Hay Farmer Name Role Phone Estrellita Meadows MD Primary Care Provider [phone] Allergies Active Allergy Reactions Criticality Noted Date [...] Diagnosed Date Coronary artery disease invo lving tu[place]ne coronary artery of [place] heart without angina pectoris 06/11/2024 Assessment & [...] (02/27/2024): 2 diverticular bleed, banded Atrial fibrillation ([facility] V24, [facility] V28) 1 04/13/2022 Assessment & Plan (06/11/2024 [...] pharmacy. Also, the patient has an elevated [id number] score and continues on anticoagulation therapy with apixaban. No episodes of abnormal bleeding have been noted. Will continue current therapy. Orders: dilTIAZem CD (CARDIZEM CD) 120 mg 24 hr capsule; Take 1 capsule (120 mg total) by mouth 2 (two) times a day. CKD (chronic kidney disease) stage 3, GFR 30-59 ml/min ([facility] V24, [facility] V28) 08/01/2020 Prediabetes 08/01/2020 Overview (02/27/2024): HA1c [...] in September 2023. She was treated at [facility]. At the time, it was thought that her syncope was secondary to benzodiazepine use. However, the patient does have a history of arrhythmias in the form of paroxysmal atrial fibrillation. As such, cardiac monitoring is indicated. Will proceed with a 30-day ambulatory acute dialysis registered nurse to rule out any arrhythmias or pauses that may have been associated with her episode of syncope. Will also order an echocardiogram to rule out any underlying structural heart disease given her episode of syncope. Chronic respiratory failure ([facility]/HCC V24, [facility]/HCC V28) 09/24/2023 04/17/2024 Chest pain 05/12/2023 04/17/2024 Overview (02/27/2024): Negative ETT 07/06 Hiatal hernia 04/29/2010 06/11/2024 Overview (02/27/2024): 4 cm hiatal hernia at EGD 04/29/2010. Encounters Date Type Department Care Team Description 08/10/2024 10:00 AM EDT Office Visit [address] [phone] Mililcent Dumont PA B12 deficiency (Primary Dx); Anxiety; Moderate persistent asthma without complication; Paroxysmal atrial fibrillation (CMS/HCC V24, [facility] V28); Vitamin D insufficiency; Pure hypercholesterolemia; Prediabetes; Osteopenia, unspecified location; Primary hypertension; Coronary artery disease involving [place]ne coronary artery of [place] heart without angina pectoris; Chronic obstructive pulmonary disease, unspecified COPD type ([facility]/HCC V24, CMS/HCC V28); Gastroesophageal reflux disease without esophagitis; Requires supplemental oxygen 07/06/2024 1:00 PM EDT Consult Orthopedic Surgery - [place] [address] [facility] [address] [place] [phone] Elian Dhaliwal MD Dog bite of left thumb, initial encounter 07/04/2024 10:42 AM EDT - 07/04/2024 11:59 PM EDT Hospital Encounter [address] [phone] Dog bite of left thumb, initial encounter Discharge Disposition: Home or Self Care 07/04/2024 10:00 AM EDT Office Visit [address] [phone] Millicent Dumont PA Dog bite of left thumb, initial encounter (Primary Dx) 06/13/2024 10:45 AM EDT Office Visit [facility] Hematology Oncology [address] [place] [phone] eLe Berkowitz MD Iron deficiency anemia due to [...] repeat due to age COLONOSCOPY 10/26/2016 At [facility], sigmoid diverticulosis, no polyps. No repeat needed [...] Depression GI bleed Anxiety DX:Anxiety Atrial fibrillation ([facility] V24, [facility] V28) Fibromyalgia Vitamin D deficiency Osteopenia Pulmonary [...] Description 09/06/2024 2:30 PM EDT Office Visit [facility] [address] [place] [address] [place] [phone] Phillip Cabral MD [address] [place] [address] [address] [place] [address] 02/19/2025 11:00 AM EST Office Visit Adult Medicine [facility] [address] [place] [address] Estrellita Meadows MD [address] [place] [address] Health Maintenance Due Date Last Done Comments [...] K/mcL LAB HEMETOLOGY METHOD 08/10/2024 12:[address] [facility] RBC 4.60 3.80 - 4.80 M/mcL LAB HEMETOLOGY METHOD 08/10/2024 12:[address] [facility] Hemoglobin 14.0 11.5 - 16.0 g/dL LAB HEMETOLOGY METHOD 08/10/2024 12:[address] [facility] Hematocrit 46.0 35.0 - 47.0 % LAB HEMETOLOGY METHOD 08/10/2024 12:[address] [facility] MCV 100.9(H) 79.0 - 98.0 FL LAB HEMETOLOGY METHOD 08/10/2024 12:[address] [facility] MCH 30.7 27.0 - 32.0 pcg LAB HEMETOLOGY METHOD 08/10/2024 12:[address] [facility] MCHC 30.4(L) 32.0 - 37.0 g/dL LAB HEMETOLOGY METHOD 08/10/2024 12:[address] [facility] RDW 12.6 11.0 - 15.0 % LAB HEMETOLOGY METHOD 08/10/2024 12:[address] [facility] Platelets 189 130 - 400 K/mcL LAB HEMETOLOGY METHOD 08/10/2024 12:29 PM EDT [facility] MPV 10.9 7.0 - 11.0 FL LAB HEMETOLOGY METHOD 08/10/2024 12:29 PM EDT [facility] NRBC 0.0 <1.0 % LAB HEMETOLOGY METHOD 08/10/2024 12:29 PM EDT [facility] NRBC Absolute 0.00 <0.10 K/mcL LAB HEMETOLOGY METHOD 08/10/2024 12:29 PM EDT [facility] Blood Venous blood specimen / Unknown Venipuncture / Unknown 08/10/2024 10:54 AM EDT 08/10/2024 10:54 AM EDT us Millicent GRIFFITHS LAB BLOOD ORDERABLES Final Re sult Performing Organization Address City/[facility]/ZIP Co de Phone Number [facility] [address] [place] [address], [place] [phone] * Hemoglobin A1c (08/10/2024 10:54 AM EDT) Hemoglobin A1C 5.1 <6.5 % LAB CHEMISTRY METHOD 08/10/2024 3:05 PM EDT [facility] Mean Bld Glu Estim. 100 mg/dL LAB CHEMISTRY METHOD 08/10/2024 3:05 PM EDT [facility] Blood Venous blood specimen / Unknown Venipuncture / Unknown 08/10/2024 10:54 AM EDT 08/10/2024 10:54 AM EDT us Millicent GRIFFITHS LAB BLOOD ORDERABLES Final Re sult [facility] [address] [place] [address], [place] [phone] * (ABNORMAL) Comprehensive metabolic panel (08/10/2024 10:54 AM EDT) Sodium 136 133 - 145 mmol/L LAB CHEMISTRY METHOD 08/10/2024 3:[address] [facility] Potassium 4.4 3.5 - 5.5 mmol/L LAB CHEMISTRY METHOD 08/10/2024 3:[address] [facility] Chloride 97 96 - 110 mmol/L LAB CHEMISTRY METHOD 08/10/2024 3:[address] [facility] CO2 37(H) 21 - 32 mmol/L LAB CHEMISTRY METHOD 08/10/2024 3:[address] [facility] Anion Gap 2(L) 3 - 11 LAB CHEMISTRY METHOD 08/10/2024 3:[address] [facility] Glucose 92 70 - 100 mg/dL LAB CHEMISTRY METHOD 08/10/2024 3:[address] [facility] BUN 15 5 - 25 mg/dL LAB CHEMISTRY METHOD 08/10/2024 3:[address] [facility] Creatinine 0.87 0.50 - 1.10 mg/dL LAB CHEMISTRY METHOD 08/10/2024 3:[address] [facility] eGFR 68 >=60 mL/min/1. 73m2 LAB CHEMISTRY METHOD 08/10/2024 3:[address] [facility] Comment:Calculation based on the Chronic Kidney Disease Epidemiology Collaboration (CKD-EPI) equation refit without adjustment for race. BUN/Creatinine Ratio 17.2 LAB CHEMISTRY METHOD 08/10/2024 3:[address] [facility] Calcium 9.8 8.5 - 10.5 mg/dL LAB CHEMISTRY METHOD 08/10/2024 3:[address] [facility] AST (SGOT) 16 10 - 42 unit/L LAB CHEMISTRY METHOD 08/10/2024 3:[address] [facility] ALT (SGPT) 19 10 - 60 unit/L LAB CHEMISTRY METHOD 08/10/2024 3:25 PM EDT [facility] Alkaline Phosphatase 101 42 - 121 unit/L LAB CHEMISTRY METHOD 08/10/2024 3:25 PM EDT [facility] Total Protein 7.8 6.0 - 8.0 g/dL LAB CHEMISTRY METHOD 08/10/2024 3:25 PM EDT [facility] Albumin 3.8 3.2 - 5.0 g/dL LAB CHEMISTRY METHOD 08/10/2024 3:25 PM EDT [facility] Total Bilirubin 0.3 0.0 - 1.4 mg/dL LAB CHEMISTRY METHOD 08/10/2024 3:25 PM EDT [facility] Blood Venous blood specimen / Unknown Venipuncture / Unknown 08/10/2024 10:54 AM EDT 08/10/2024 10:54 AM EDT us Millicent GRIFFITHS LAB BLOOD ORDERABLES Final Re sult [facility] [address] [place] [address], [place] [phone] * XR Hand 3+ Views Left (07/04/2024 [...] Signed Date: 07/04/2024 17:08 ET Workstation ID: [id number] Transcribed By: Self Edit Transcribed Date: 07/04/2024 [...] Signed Date: 07/04/2024 17:08 ET Workstation ID: [id number] Transcribed By: Self Edit Transcribed Date: 07/04/2024 16:59 ET us Millicent GRIFFITHS IMG XR PROCEDURES Final Resul t * (ABNORMAL) Lipid panel with reflex to direct LDL (03/14/2024 1:38 PM EST) Cholesterol 216(H) 0 - 200 mg/dL LAB CHEMISTRY METHOD 03/14/2024 5:26 PM EST [facility] Triglycerides 95 0 - 150 mg/dL LAB CHEMISTRY METHOD 03/14/2024 5:26 PM EST [facility] HDL 113 >=40 mg/dL LAB CHEMISTRY METHOD 03/14/2024 5:26 PM EST [facility] LDL Calculated 84 0 - 100 mg/dL LAB CHEMISTRY METHOD 03/14/2024 5:26 PM EST [facility] VLDL Cholesterol Titi 19 mg/dL LAB CHEMISTRY METHOD 03/14/2024 5:26 PM EST [facility] Non HDL Chol. (LDL+VLDL) 103 <145 mg/dL LAB CHEMISTRY METHOD 03/14/2024 5:26 PM EST [facility] Chol/HDL Ratio 1.9 0.0 - 4.4 LAB CHEMISTRY METHOD 03/14/2024 5:26 PM EST [facility] Blood Venous blood specimen / Unknown Venipuncture / Unknown 03/14/2024 1:38 PM EST 03/14/2024 1:38 PM EST Phillip Cabral MD LAB BLOOD ORDERABLES F inal Result [facility] [address] [place] [address], * DXA BONE DENSITY STUDY 1+ SITS [...] spine and left hip were obtained using [employer] W (S/N [id number]). COMPARISON: October 02, 2020 FINDINGS: L1-L2-L4 BMD: [...] lumbar spineand left hip were obtained using [employer] W (S/N [id number]). COMPARISON: October 02, 2020 FINDINGS: L1-L2-L4 BMD: [...] Most Recently Relevant to Health Maintenance Insurance [facility] MEDICARE Member Subscriber Plan / Payer (Ef fective 2013-Present) Name:Amarilys Birch Relation to Subscriber:Self Name:Amarilys Birch Payer ID:[id number] Group ID:[id number] Type:Not on file Address: [place] [address] [address] [address] Care Teams Hay Farmer Relationship Specialty Start Date End Date Estrellita Meadows MD [address] [place] [id number] PCP - General Internal Medicine 08/01/20
[2024-09-04 11:32] VITALS: PULSE 85; O2SAT 96
--- NOTE | 2024-09-04 11:32 | A.OFFVIS_ITS ---
Vital Signs 09/04/24 11:32 Height 5 ft Pulse 85 Pulse Source Pulse Oximeter Pulse Oximetry (%) 96 Oxygen Delivery Method Nasal Cannula Oxygen Flow Rate 2 Intake Visit Reasons: 6MWT Shake Cutter Required: No Allergies Seasonal Allergies Allergy (Verified 09/04/24 11:33) Unknown Medication List - Last Reconciled 09/04/24 by Kassi Babcock, NAEEM albuterol sulfate 90 mcg/actuation 2 puffs inhalation Q4-6H PRN 30 days alprazolam 0 mg PO apixaban (Eliquis) 5 mg PO BID azelastine-fluticasone 137-50 mcg/spray (Dymista) 1 spray intranasal BID 30 days calcium carbonate-vitamin D3 600 mg-10 mcg (400 unit) 1 tab PO BID diltiazem HCl CD 180 mg PO DAILY famotidine 20 mg PO BID rijvuxmepue-bkwtoezqc-etgpurjq 100-62.5-25 mcg (Trelegy Ellipta) 1 inh inhalation DAILY 30 days ipratropium-albuterol 0.5 mg-3 mg(2.5 mg base)/3 mL 3 mL inhalation Q4-6H PRN 30 days trazodone 150 mg PO BEDTIME venlafaxine ER 75 mg PO QAM venlafaxine ER 150 mg PO QAM zolpidem 10 mg PO BEDTIME [facility] Social History Patient Tobacco Use Status: Never used Tobacco Physical Exam Vital Signs: Last Vital Signs Pulse 85 09/04/24 11:32 Pulse Ox 96 09/04/24 11:32 Oxygen Delivery Method Nasal Cannula 09/04/24 11:32 Oxygen Flow Rate 2 09/04/24 11:32 Office Procedures 6 Minute Walk Time:: 10:15 SPO2 % at rest: 92 Pulse at rest: 85 SPO2 % during excercise: 87 Pulse during excercise: 86 SPO2 % after excercise: 96 Pulse after excercise: 84 Distance in yards walked: 250 Keshav Score: 2 Performance Observations:: Amarilys walked on level ground without assistance. She walked on room air for 2 mins before her SPO2 decreased to 87%. O2 started at 2 lpm and with a brief rest her SPO2 recovered to 96%. She maintained her SPO2 96-97% on 2 lpm continuous O2 for the duration of the walk. [address] - 6 Minute Walk Assessment & Plan Assessment & Plan (1) Severe persistent allergic asthma: Code(s): J45.50 - Severe persistent asthma, uncomplicated Category: Medical Plan: 6 minute walk test Orders: Orders AMB 6 minute walk Today J45.50 - Severe persistent asthma, uncomplicated Coding Level of Care Code Established Pt Est Pt Level 1 (05131) Patient Type Established Diagnoses Severe persistent allergic asthma J45.50 CPT Codes Coding ([id number]) Comment NURSE VISIT ONLY
[2024-09-04 11:35] VITALS: PULSE 85; O2SAT 92
== END 2024-09-04 11:20 | disposition home or self-care (01) ==
LOC: HO.HPS 09:47
PROVIDERS: PCP Internal Medicine; Visit Provider Internal Medicine Pulmonary Disease
DX: J45.50 Severe persistent asthma, uncomplicated (principal)
CPT/HCPCS: 94618

== ENCOUNTER → 2024-09-04 09:47 | Outpatient (BNVA) | payer OTHER, SELFPAY | PROVIDERS: PCP Internal Medicine; Visit Provider Internal Medicine Pulmonary Disease | DX: J45.50 Severe persistent asthma, uncomplicated (principal) | CPT/HCPCS: 94618; 99211 ==

== ENCOUNTER 2025-01-30 10:09 | Outpatient (REF) | payer OTHER, SELFPAY ==
[2025-01-30 11:46] LABS: MANUAL DIFF FLAG NO
[2025-01-30 12:01] LABS: Hematocrit 45.5 % (37.0-47.0); Hemoglobin 14.0 g/dl (12.0-16.0); Imm Gran Abs Auto 0.01 X10*3/uL (0.00-0.03); Imm Gran Pct Auto 0.2 % (0.0-0.4); Lymphocytes Absolute Auto 1.7 X10*3/uL (1.2-4.9); Mean Corpuscular HGB Conc 30.8 g/dl (31.0-35.0); Mean Corpuscular Hemoglobin 30.8 pg (27.0-33.0); Mean Corpuscular Volume 100.0 fL (80.0-98.0); NRBC Abs Auto 0.000 X10*3/uL (0.0-0.012); NRBC Pct Auto 0.0 /100WBC (0.0-0.2); Platelet Count 204 X10*3/uL (160-400); Red Blood Count 4.55 X10*6/uL (4.20-5.50); White Blood Count 5.4 X10*3/uL (4.8-10.8)
[2025-01-30 12:27] LABS: Alanine Aminotransferase 11 U/L (0-31); Albumin Level 4.4 g/dL (3.5-5.0); Alkaline Phosphatase 106 U/L (39-117); Anion Gap 13 (12-20); Aspartate Amino Transferase 19 U/L (5-31); Blood Urea Nitrogen 15 mg/dL (9-16); Calcium 9.6 mg/dL (8.4-10.2); Carbon Dioxide 37 mmol/L (22-29); Chloride 95 mmol/L (96-108); Cholesterol 202 mg/dL (<200); Estimated Glomerular Filt Rate > 60; HDL Cholesterol 94 mg/dL (>40); Potassium 4.7 mmol/L (3.3-5.1); Sodium 140 mmol/L (135-145); Total Protein 8.0 g/dL (6.5-8.0); Triglycerides 56 mg/dL (<150)
[2025-01-30 13:03] LABS: HIV Num 1 0.06 S/CO (0.00-0.99); ~HepC Num1 0.14 S/CO (0.00-0.79); ~Hepatitis C Antibody Nonreactive (Nonreactive)
== END 2025-01-30 10:10 | disposition home or self-care (01) ==
LOC: HO.HHCL 10:09
PROVIDERS: PCP Internal Medicine; Visit Provider Internal Medicine
DX: Z13.1 Encounter for screening for diabetes mellitus (principal); Z11.4 Encounter for screening for human immunodeficiency virus [HIV]; Z11.59 Encounter for screening for other viral diseases; N18.31 Chronic kidney disease, stage 3a
CPT/HCPCS: 36415; 80053; 80061; 82306; 83036; 84443; 85025; 86803; 87389

== ENCOUNTER 2025-03-12 13:23 | Outpatient (AMB) | payer OTHER, SELFPAY ==
--- OUTSIDE RECORDS SUMMARY | 2023-12-29 12:00 | XMS_ITS | Encounter Summary ---
Author Organization [facility] Address [address] [place] [address] Care Team Providers Care Cellophane Bag Machine Operator Name Role Phone Estrellita Meadows MD Primary Care Provider [phone] Encounter Details Date Type Department Care Team (Latest Contact Info) Description 12/29/2023 1:00 PM EDT Hospital Encounter TH HISTORIC ENCOUNTERS [facility] CONVERSION ONLY Iron deficiency anemia secondary to blood loss (chronic); Personal history of other diseases of the digestive system Social History Tobacco Use Types Packs/Day Years Used Date Smoking Tobacco: Never Passive Smoke Exposure: Never Smokeless Tobacco: Never Alcohol Use Standard Drinks/Week Comments Not Currently 0 (1 standard drink = 0.6 oz pur e alcohol) Comments Unknown Sex and Gender Information Value Date Recorded Sex Assigned at Female 03/24/2024 3:57 PM EST Legal Sex Female 1:55 AM EST Gender Identity Female 03/24/2024 3:57 PM EST Sexual Orientation Straight 03/24/2024 3: 57 PM EST documented as of this encounter Last Filed Vital Signs Vital Sign Reading Time Taken Comments Blood Pressure - - Pulse - - Temperature - - Respiratory Rate - - Oxygen Saturation - - Inhaled Oxygen Concentration - - Weight 76.5 kg (168 lb 9.6 oz) 11/11/2023 10:14 AM EDT Height 152.4 cm (5') 10/28/2023 8:36 AM EDT Body Mass Index 32.93 10/28/2023 8:36 AM EDT documented in this encounter Progress Notes * Historical, Notes Results - 12/29/2023 1:26 PM EDT 1326- Patient arrives, ambulatory to unit for first of two scheduled doses of Feraheme. Oriented tounit and unit policies/procedures upon arrival. Patient is mostly Uzbek speaking but does speak some Lao. She denies needing use of the site interpreter machine when offered. Thorough education on medication explained including side effects, schedule and administration. All questions addressed to her apparent satisfaction. Politely declined wanting a printed handout on drug. Treatment plan reviewed and medication released to pharmacy. While awaiting med to be ready, all new patient charting/intake completed. Patient has a history of GI bleed. Remains on anticoagulant for history of Atrial Fibrillation. Says she does have black stool. She is awaiting a referral to GI for further workup. Hodan pheral IV established without difficulty and NS flush bag hung. TV turned on for patient. 1337- Feraheme hung, programmed to infuse over 30 minutes. Patient advised of signs/symptoms of infusion reaction to be aware of. The call carrillo is in reach and she shows this RN how she would use it. 1410- Patient completed the remainder of the Feraheme without any difficulty. Has been sleeping comfortably. NS flush bag programmed to run for 30 minutes at same rate while patient completes an observation period. The call carrillo remains near by. 1446- Patient completed the remainder of the observation period without any difficulty. She is awake and feeling well for discharge. Peripheral IV removed, pressure dressing applied to site. Next appointment booked, printed and given to patient. She left the unit stable, ambulatory without questions or concerns and steady gait visualized. documented in this encounter Plan of Treatment Upcoming Encounters Date Type Department Care Team (Late st Contact Info) Description 04/20/2025 10:30 AM EST Consult Vascular Surgery - [place] [address] [place] [phone] Kaylee Sullivan PA [address] [place] [phone] 09/03/2025 10:40 AM EDT Office Visit Gastroenterology - [address] [place] [phone] Inocencia Pratt, ROBOTIC MACHINE TENDER [employer]ODUCTION [address] [place] [address] documented as of this encounter Visit Diagnoses Diagnosis Iron deficiency anemia secondary to blood loss (chronic) Personal history of other diseases of the digestive system documented in this encounter Care Teams Cellophane Bag Machine Operator Relationship Specialty Start Date End Date Estrellita Meadows MD [address] [place] [address] PCP - General Internal Medicine 08/01/20 02/01/25 documented as of this encounter
--- OUTSIDE RECORDS SUMMARY | 2024-01-06 11:56 | XMS_ITS | Encounter Summary ---
[facility] Address [address] [place] [address] Care Team Providers Care Sterilizer Machine Operator Name Role Phone Estrellita Meadows MD Primary Care Provider [phone] Encounter Details Date Type Department Care Team ([facility] Contact Info) Description 01/06/2024 12:56 PM EDT Hospital Encounter TH HISTORIC ENCOUNTERS [facility] CONVERSION ONLY Social History Tobacco Use Types Packs/Day Years [...] Progress Notes * Historical, Notes Results - 01/06/2024 1:00 PM EDT Patient arrives ambulatory for second Feraheme infusion. [facility]. Patient states she was prescribed antibiotics anddischarged home. Patient still wearing Holter monitor. She states she is wearing it for a month andhas an established internal affairs investigator. PIV inserted without difficulty. Patient resting comfortably in chair with call carrillo in reach. 1425-Patient completed Feraheme without incident. PIV removed-intact. Patient has follow-up appointment with Dr. Berkowitz in place. Patient stable upon discharge. documented in this encounter Plan of Treatment Upcoming Encounters Date Type Department Care Team (Late st Contact Info) Description 04/20/2025 10:30 AM EST Consult Vascular Surgery - [place] [address] [facility] [address] [place] [address] Kaylee Sullivan PA [address] [place] [phone] 09/03/2025 10:40 AM EDT Office Visit Gastroenterology - [address] [facility] [address] [place] [address] Inocencia Pratt, KALYAN [address] [facility] [address] [place] [address] documented as of this encounter Visit Diagnoses Not on filedocumented in this encounter Care Teams Sterilizer Machine Operator Relationship Specialty Start Date End Date Estrellita Meadows MD [address] [place] [address] PCP - General Internal Medicine 08/01/20 02/01/25 documented as of this encounter
[2025-03-12 13:43] VITALS: BP 128/72; PULSE 90; BMI 32.3
--- NOTE | 2025-03-12 13:43 | A.OFFVIS_ITS ---
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/ALAN Aging Box Hand Required: Yes Aging Box Hand Name: [id number] Allergies Seasonal Allergies Allergy (Verified 09/04/24 11:33) Unknown Medication List - Last Reconciled 03/12/25 by Miah Valencia MD albuterol sulfate 90 mcg/actuation 2 puffs PO Q6H PRN alprazolam 0 mg PO apixaban (Eliquis) 5 mg PO BID atorvastatin 40 mg PO DAILY diltiazem HCl CD 120 mg PO BID ogfpuinjxtm-iwxxettki-sdazbiln 100-62.5-25 mcg (Trelegy Ellipta) 1 inh inhalation DAILY 30 days ipratropium-albuterol 0.5 mg-3 mg(2.5 mg base)/3 mL 3 mL inhalation Q4-6H PRN 30 days omeprazole 20 mg PO DAILY trazodone 100 mg PO BEDTIME PRN venlafaxine ER 75 mg PO QAM venlafaxine ER 150 mg PO QAM zolpidem 10 mg PO BEDTIME HPI Comments Details: Patient has been referred for cardiac evaluation. Previously seen at [facility]. Per notes, has a history of atrial fibrillation, coronary artery disease and other comorbidities like chronic kidney disease and COPD. She states she gets chest pains at different times. It seems she gets some at rest as well as physical activity. She also gets sensations of heart racing. Discussed with patient using site interpreter. [facility] Medical History (Updated 03/12/25 @ 14:24 by Miah Valencia MD) PAF (paroxysmal atrial fibrillation) Atherosclerotic cardiovascular disease Asthma Family History (Updated 03/12/25 @ 14:03 by Lou Marin) Mother No problems noted. Father No problems noted. Brother Heart attack Social History (Updated 03/12/25 @ 14:03 by Lou Marin) Alcohol intake: never Patient Tobacco Use Status: Never used Tobacco Review of Systems Const Denies weakness ENT Denies dizziness Card Reports chest pain, Reports chest pain at rest, Denies chest pain with activity, Denies syncope, Denies rapid heart rate, Denies pedal edema, Denies edema, Denies leg edema, Denies lightheadedness, Reports palpitations, Reports dyspnea, Reports dyspnea on exertion and Denies orthopnea Resp Denies cough, Reports dyspnea and Reports dyspnea on exertion GI Denies hematochezia and Denies change in stool character Musc Denies abnormal gait, Denies muscle cramps, Denies muscle weakness, Denies numbness, Denies radiating pain into limb and Denies tingling Neuro Denies abnormal gait, Denies dizziness, Denies syncope, Denies numbness, Denies tingling and Denies weakness Endo Reports palpitations Physical Exam Vital Signs: Last Vital Signs Pulse 90 03/12/25 13:43 BP 128/72 03/12/25 13:43 BMI result Body Mass Index 32.3 Const General: comfortable and no acute distress Orientation/consciousness: patient oriented x3 HEENT Other: Unremarkable Head: Yes normal to inspection Neck Neck: Yes normal visual inspection Chest Chest palpation & inspection: normal inspection of the chest Resp Auscultation: clear to auscultation bilaterally Cardio Palpation: normal PMI Heart sounds: S1 normal heart sound present, S2 normal heart sound present, no gallops, no murmurs and no rubs GI Palpation (GI): Soft to palpation Back/Spine/Pelvis Other: unremarkable Skin General skin exam: no rashes or lesions noted Neuro General: patient oriented x3 Extrem General: Yes normal to inspection Psych Mental Status: mental status grossly normal Assessment & Plan Assessment & Plan (1) Atherosclerotic cardiovascular disease: Code(s): I25.10 - Atherosclerotic heart disease of [place] coronary artery without angina pectoris Category: Medical Plan: Coronary CTA 2023-mild stenosis, 25-49% due to calcific plaque at the origin of 2nd diagonal. Minimal stenosis at left main ostium/proximal LAD calcific plaques. Her chest pains sound atypical. Doubt if it is of cardiac etiology. Continue statins. (2) PAF (paroxysmal atrial fibrillation): Code(s): I48.0 - Paroxysmal atrial fibrillation Category: Medical Plan: Today in sinus rhythm by EKG. As she complaints of some palpitations we will get a Holter monitor. In the echocardiogram from 2023 at [facility], LVEF 60-65%. No wall motion ab normalities. Mild mitral/tricuspid regurgitation. For medications, on diltiazem and Eliquis. No changes. Plan I discussed with the patient that I will arrange for a heart monitor to investigate her symptoms of irregular heartbeats. I informed her that other cardiac testing performed at [facility] last year was sufficient and did not need to be repeated at this time. I advised her that I could not refill her Xanax and that she must contact her primary care provider for this prescription. We reviewed and corrected her medication list, and I will make a follow-up appointment for her. Patient was informed and verbally consented to the use of an ambient scribe for clinic note documentation during this visit. We will also request records from [facility]. Orders: Orders ECG 7 day holter monitor Today I48.0 - Paroxysmal atrial fibrillation Coding Level of Care Code New Pt Level 4 (32043) Add On Problem Visit Only Diagnoses Atherosclerotic cardiovascular disease I25.10 PAF (paroxysmal atrial fibrillation) I48.0
--- OUTSIDE RECORDS SUMMARY | 2025-03-12 15:28 | XMS_ITS | Clinical Summary ---
Author Organization [facility] Prior to 08/12/[address] [place] [id number] Care Team Providers Care Mining Plant Operator Name Role Phone Estrellita Meadows MD Primary Care Provider [phone] Allergies No known active allergies Medications Medication [...] 81 01/06/2024 1:02 PM EDT Temperature 36.8 C (98.2 F) 01/06/2024 1:02 PM EDT Respiratory Rate 18 01/06/2024 1:02 PM EDT [...] 75+ series) 2020 COVID-19 Vaccine ( season) 2024 08/26/2021, 11/19/2020, 04/18/2020, Additional history exists Influenza Vaccine (#1) 2024 3, 12/25/2021, 11/13/2020, Additional history exists DTap [...] age to complete this topic Care Teams Mining Plant Operator Relationship Specialty Start Date End Date Estrellita Meadows MD PCP - General Internal Medicine 10/05/23
--- OUTSIDE RECORDS SUMMARY | 2025-03-12 15:28 | XMS_ITS | Encounter Summary ---
Author Organization [employer] [facility] Address [address] [facility] [address] [place] [address] Care Team Providers Care Outside Deliverer Name Role Phone Emily Gill MD Primary Care Provide r Encounter Details Date Type Department Care Team (Latest Contact Info) Description 05/08/[address] [facility] CONVERSIONS Dental, Provider, DDS Social History Tobacco [...] on filedocumented in this encounter Care Teams Outside Deliverer Relationship Specialty Start Date End Date Emily Gill MD [address] [place] [address] PCP - General Internal Medicine 02/22/25 documented as of this encounter
--- OUTSIDE RECORDS SUMMARY | 2025-03-12 15:29 | XMS_ITS | Clinical Summary ---
Author Organization [employer] Address [address] [place] [address] [address] [place] [address] Care Team Providers Care Colorectal Surgeon Name Role Phone Emily Gill MD Primary Care Provide r Allergies Active Allergy Reactions Criticality Noted Date Comments Cat Hair Extract 02/22/2015 Dog Epithelium 02/22/2015 Dust Mite Extract 02/22/2015 Molds & Smuts 02/22/2015 Medications omeprazole (PriLOSEC) [address] Kelsey ns:Gastroesophag eal reflux disease, unspecified whether esophagitis present Take 1 capsule (20 mg) by mouth before breakfast. Do not crush or chew. 30 capsule 11 5 01/17/20 26 Active cyanocobalamin (Vitamin B-12) 1000 MCG tabletIndication s:Class 1 obesity due to excess calories with serious comorbidity and body mass index (BMI) of 32.0 to 32.9 in adult Take 1 tablet (1,000 mcg) by mouth Once per day. 30 tablet 11 5 01/17/20 26 Active cholecalciferol (Vitamin D-3) 25 MCG (1000 UT) tabletIndication s:Class 1 obesity due to excess calories with serious comorbidity and body mass index (BMI) of 32.0 to 32.9 in adult Take 1 tablet (25 mcg) by mouth Once per day. 60 tablet 1 5 Active albuterol 108 (90 Base) MCG/ACT inhalerIndicatio ns:Chronic obstructive pulmonary disease, unspecified COPD type (CMS/HCC) (HCC) Inhale 2 puffs every 4 (four) hours if needed for wheezing. 18 g 2 5 01/17/20 26 Active atorvastatin (Lipitor) 40 MG tabletIndication s:Coronary artery disease involving pen[place]scot coronary artery of penobscot heart, unspecified whether angina present Take 1 tablet (40 mg) by mouth Once per day. 30 tablet 11 5 01/17/20 26 Active simethicone (Mylicon,Gas-X) 180 MG capsuleIndicatio ns:Bloating Take 1 capsule (180 mg) by mouth with breakfast, with lunch, and with evening meal. 90 capsule 1 5 Active nitrofurantoin, macrocrystal-mon ohydrate, (Macrobid) 100 MG capsuleIndicatio ns:UTI symptoms Take 1 capsule (100 mg) by mouth 2 times daily for 7 days. 14 capsule 5 03/02/20 25 Active Problems Problem Noted Date Diagnosed Date UTI symptoms 02/23/2025 Benzodiazepine dependence (CMS/HCC) 01/16/2025 Chronic obstructive pulmonar y disease, unspecified COPD type (CMS/HCC) 01/16/2025 Stage 3a chronic kidney disease (CMS/HCC) 2024 GERD (gastroesophageal reflux disease) 5 Coronary artery disease invo lving penobscot coronary artery of pen[place]scot heart 01/16/2025 Atrial fibrillation, permanent (CMS/HCC) 025 Bloating 01/16/2025 Hair loss 01/16/2025 Encounters Date Type Department Care Team Description 02/23/2025 10:15 AM EST Telemedicine [facility] [address] [place] [phone] Emily Gill MD UTI symptoms; Atrial fibrillation, permanent (CMS/HCC) (HCC); Coronary artery disease involving penobscot coronary artery of penobscot heart, unspecified whether angina present 02/23/2025 Travel 02/22/2025 Telephone [facility] [address] [place] [phone] Emily Gill MD chart prep 01/16/2025 10:15 AM EST Office Visit [address] [phone] Emily Gill MD Benzodiazepine dependence (CMS/HCC) (HCC) (Primary Dx); Dietary counseling; Exercise counseling; Class 1 obesity due to excess calories with serious comorbidity and body mass index (BMI) of 32.0 to 32.9 in adult; Chronic obstructive pulmonary disease, unspecified COPD type ([facility]) ([facility]); Stage 3a chronic kidney disease ([facility]) ([facility]); Gastroesophageal reflux disease, unspecified whether esophagitis present; Coronary artery disease involving penobscot coronary artery of penobscot heart, unspecified whether angina present; Atrial fibrillation, permanent ([facility]) ([facility]); Bloating; Hair loss 01/16/2025 Travel 01/15/2025 Telephone [facility] [address] [place] [phone] Emily Gill MD Chart Prep 01/09/2025 Patient Outreach [facility] [address] [place] [address] Jarrett Dominguez MD Pre-visit Planning (Pre visit planning unable to LVM ) from Last 3 Months Immunizations Immunization Administration Dates Next Due Influenza High-dose Quadriva lent Preservative Free 12/25/2021,11/11/2020,12/11/2019 Influenza injectable quadriv alent preservative free 12/16/2018 Influenza, High Dose Seasona l, Preservative Free 12/08/2023,11/17/2022,11/11/2017,12/29 Influenza, IIV3, injectable 02/22/2015,0 11/19/2012,11/20/2011,12/16,11/27/2009,12/11/2008,01/19/2008 ,12/24/2006,02/16/2006 Influenza, seasonal, injecta ble, preservative free 02/22/2015,11/19/2012,11/20/2011,12/16,11/27/2009,12/11/2008,01/19/2008 ,12/24/2006,02/16/2006 Influenza, trivalent, adjuvanted 025,11/17/2022,11/13/2020,11/11,12/09/2016,12/30/2015 Novel [id number], preservative-free 04/05/2009 Pneumococcal Conjugate PCV 13 03/02/2016 Pneumococcal Polysaccharide PPSV23 12/16,05/10/2018,12/11/2008,09/19 RSV Bivalent 12/08/2023 TD (adult), 2 Lf tetanus tox oid, preservative free, adsorbed 06/02/2005 Td (adult) 06/02/2005 Tdap 12/16/2018 Zoster, Recombinant 10/26/2019,01/26/2019 Social History Tobacco Use Types Packs/Day Years Used Date Smoking Tobacco: Never Smokeless Tobacco: Never Tobacco Cessation:Counseling Given: Not Answered Depression Answer Date Recorded Patient Health Questionnaire-9 Score 0 02/23/2025 Patient Health Questionnaire-9 Score 0 02/23/2025 Last PHQ-9: Questionnaire Data Not on file 1 04/26/2024 Housing Stability Answer Date Recorded What is your housing situation today? I have vinnie nowak 02/23/[address] you li ve. Do you have problems with any of the following? None of the above 02/23/2025 Food Insecurity Answer Date Recorded Within the past 12 months, y ou worried that your food would run out before you got money to buy more: Never True 02/23/2025 Within the past 12 months,th e food you bought just didn't last and you didn't have enough money to get more: Never True 02/2025 Transportation Answer Date Recorded In the past 12 months, has l ack of transportation kept you from medical appts, meetings, work or from getting things needed for daily living? No 02/23/2025 Utilities Answer Date Recorded In the past 12 months, has t he electric, gas, oil or water company threatened to shut off services in your home? No 02/23/2025 Depression Answer Date Recorded Patient Health Questionnaire-2 Score 0 02/23/2025 Internet Access Answer Date Recorded Internet Access Q1 Yes 02/23/2025 Internet Access Q2 Not on file 02/23/2025 Comments Unknown Sex and Gender Information Value Date Recorded Sex Assigned at Female 01/12/2022 10:25 AM EDT Legal Sex Female 10:25 AM EDT Gender Identity Female 01/12/2022 10:25 AM EDT Sexual Orientation Choose not to disclose 2021 10:25 AM EDT Last Filed Vital Signs Vital Sign Reading Time Taken Comments Blood Pressure 128/82 01/16/2025 10:21 AM EST Pulse 73 01/16/2025 10:21 AM EST Temperature 35.2 C (95.4 F) 01/16/2025 10:21 AM EST Respiratory Rate 24 01/16/2025 10:21 AM EST Oxygen Saturation 98% 01/16/2025 10:21 AM EST Inhaled Oxygen Concentration - - Weight 76.4 kg (168 lb 6.4 oz) 01/16/2025 10:21 AM EST Height 152.4 cm (5') 01/16/2025 10:21 AM EST Body Mass Index 32.89 01/16/2025 10:21 AM EST Plan of Treatment Health Maintenance Due Date Last Done Comments COVID-19 Vaccine ( season) 2025 11/22/2024, 12/08/2023, 01/30/2022, Additional history exists Tobacco Screening 01/16/2026 01/16/2025 Alcohol/Substance Use Screening 02/23/2026 02/23/2025 Depression Screening 02/23/2026 02/23/2025, 02/24/20 SDOH Screening 02/23/2026 02/23/2025 DTaP/Tdap/Td Vaccines (2 - Td or Tdap) 12/16/2028 12/16/2018, 06/02/2005, 06/02/2005 Lipid Panel 01/30/2030 01/30/2025 Pneumococcal Vaccine: 50+ Years Completed 12/16/2018, 05/10/2018, 03/02/2016, Additional history exists Zoster Vaccines Completed 10/26/2019, 01/26/2019 RSV Patients and Patients Aged 60 years or older Completed 12/08/2023 Influenza Vaccine Completed 11/22/2024, , 11/17/2022, Additional history exists Hepatitis C Screening Completed 01/30/2025 HIB Vaccines Aged Out No longer eligi [...] Procedure Name Priority Date/Time Associated Diagnosis Comments TSH W/REFLEX TO FT4 Routine 01/30/2025 1 0:18 AM EST Stage 3a chronic kidney disease (CMS/HCC) (HCC) VITAMIN D,25-OH,TOTAL,IA Routine 01/30/2025 10:18 AM EST Stage 3a chronic kidney disease (CMS/HCC) (HCC) LIPID PANEL, STANDARD Routine 01/30/2025 10:18 AM EST Stage 3a chronic kidney disease (CMS/HCC) (HCC) HEPATITIS C AB W/REFL TO HCV RNA, QN, PCR Routine 01/30/2025 10:18 AM EST Stage 3a chronic kidney disease (CMS/HCC) (HCC) HIV 1/2 ANTIGEN/ANTIBODY, FOURTH GENERATION W/RFL Routine 01/30/2025 10:18 AM EST Stage 3a chronic kidney disease (CMS/HCC) (HCC) HEMOGLOBIN A1C Routine 01/30/2025 10:18 AM EST Stage 3a chronic kidney disease (CMS/HCC) (HCC) COMPREHENSIVE METABOLIC PANEL Routine 01/30/2025 10:18 AM EST Stage 3a chronic kidney disease (CMS/HCC) (HCC) CBC WITH AUTO DIFFERENTIAL Routine 01/30/2025 10:18 AM EST Stage 3a chronic kidney disease (CMS/HCC) (HCC) from Last 3 Months Results * (ABNORMAL) Vitamin D, 25-Hydroxy, Total, Immunoassay (01/30/2025 10:18 AM EST) Vitamin D 25-OH Total 27.2(L) >30 ng/mL [facility] Comment: Health Based Reference Values*< 20 ng/mL Gctssmgti36-68 ng/mL Insufficient> 30 ng/mL Sufficient*Mario TREVIZO. N Engl J Med. 2007;357:266-280There is no well-established upper level of normal vitamin Dlevels. Some laboratories use 50 ng/mL as an upper limit ofnormal. However, toxicity is patient-dependent and may occurat any level. Careful correlation with the patient'spresentation is necessary and, if there is concern forvitamin D toxicity, treatment should be consideredirrespective of the serum level.Care must be taken in interpreting Vitamin D results fromdifferent laboratories and methodologies. Published datademonstrated that results from patients undergoinghemodialysis may show a negative bias when tested withvarious automated 25-OH vitamin D assays when compared toLC-MS/MS.When testing samples from patients whose predominant form ofVitamin D is Vitamin D2, such as patients receiving VitaminD2 supplementation, results that are subtherapeutic shouldbe confirmed with another method such as LC-MS/MS. Blood Venous blood specimen / Unknown 01/30/2025 10:18 AM EST 01/30/2025 11:40 AM EST us Emily Johnson MD LAB BLOOD ORDERABLES Final Result Performing Organization Address [facility]/ZIP Co de Phone Number [facility] [address] [place] [phone] * TSH with Reflex to Free T4 (01/30/2025 10:18 AM EST) TSH reflex Free T4 0.81 0.32 - 4.0 uIU/mL [facility] Blood Venous blood specimen / Unknown 01/30/2025 10:18 AM EST 01/30/2025 11:40 AM EST us Emily Johnson MD LAB BLOOD ORDERABLES Final Result Performing Organization Address [facility]/ZIP Co de Phone Number [facility] [address] [place] [phone] * (ABNORMAL) CBC auto differential (01/30/2025 10:18 AM EST) White Blood Count 5.4 4.8 - 10.8 X10*3/uL [facility] Red Blood Count 4.55 4.20 - 5.50 X10*6/uL [facility] Hemoglobin 14.0 12.0 - 16.0 g/dl [facility] Hematocrit 45.5 37.0 - 47.0 % [facility] Mean Corpuscular Volume 100.0(H) 80.0 - 98.0 fL [facility] Mean Corpuscular Hemoglobin 30.8 27.0 - 33.0 pg [facility] Mean Corpuscular HGB Conc 30.8(L) 31.0 - 35.0 g/dl [facility] Red Cell Distribution Width 13.2 11.0 - 16.0 % [facility] Platelet Count 204 160 - 400 X10*3/uL [facility] Mean Platelet Volume 10.8 9.4 - 12.3 fL [facility] Neutrophils Percent Auto 57.1 45 - 73 % [facility] Imm Gran Pct Auto 0.2 0.0 - 0.4 % [facility] Lymphocytes Percent Auto 31.5 20 - 40 % [facility] Monocytes Percent Auto 8.3 2 - 11 % [facility] Eosinophils Percent Auto 2.0 0 - 4 % [facility] Basophils Percent Auto 0.9 0 - 2 % [facility] NRBC Pct Auto 0.0 0.0 - 0.2 /100WBC [facility] Neutrophils Absolute Auto 3.1 2.0 - 8.3 x10*3/uL [facility] Imm Gran Abs Auto 0.01 0.00 - 0.03 X10*3/uL [facility] Lymphocytes Absolute Auto 1.7 1.2 - 4.9 X10*3/uL [facility] Monocytes Absolute Auto 0.5 0.1 - 1.2 X10*3/uL [facility] Eosinophils Absolute Auto 0.1 0.0 - 0.4 X10*3/uL [facility] Basophils Absolute Auto 0.1 0.0 - 0.2 X10*3/uL [facility] NRBC Abs Auto 0.000 0.0 - 0.012 X10*3/uL [facility] Blood Venous blood specimen / Unknown 01/30/2025 10:18 AM EST 01/30/2025 11:40 AM EST Emily Johnson MD LAB BLOOD ORDERABLES Final Result Performing Organization Address [facility]/ZIP Co de Phone Number [facility] [address] [place] [phone] * Hepatitis C Antibody with Reflex to HCV, RNA, Quantitative, Real-Time PCR (01/30/2025 10:18 AM EST) Hepatitis C Antibody Nonreactive Nonreactive [facility] Comment:Antibodies to HCV no t detected; does not exclude early acuteHCV infection. Blood Venous blood specimen / Unknown 01/30/2025 10:18 AM EST 01/30/2025 11:40 AM EST Emily Johnson MD LAB BLOOD ORDERABLES Final Result Performing Organization Address [facility] Co de Phone Number [facility] [address] [place] [phone] * HIV-1/2 Antigen and Antibodies, Fourth Generation, with Reflexes (01/30/2025 10:18 AM EST) HIV AB/AG Nonreactive Nonreactive [facility] Comment:HIV-1 p24 Ag and/or HIV-1/HIV-2 Ab not detected.A test result that is nonreactive does not exclude thepossibility of exposure to or infection with HIV-1 and/orHIV-2. Nonreactive results in this assay for individualswith prior exposure to HIV-1 and/or HIV-2 may be due toantigen and antibody levels that are below the limit ofdetection of this assay.The [facility] Alinity HIV Ag/Ab Combo assay result andsupplemental assay results should be interpreted inconjunction with the patient's clinical presentation,history and other laboratory results. If the results areinconsistent with clinical evidence, additional testing issuggested to confirm the result. Blood Venous blood specimen / Unknown 01/30/2025 10:18 AM EST 01/30/2025 11:40 AM EST Emily Johnson MD LAB BLOOD ORDERABLES Final Result Performing Organization Address [facility] Co de Phone Number [facility] [address] [place] [address] [phone] * Hemoglobin A1c (01/30/2025 10:18 AM EST) Hemoglobin A1c 5.6 <6.0 % [facility] Comment:Hemoglobin A1C Refer ence Range Adults: 4.8 - 6.0 % Non diabetic: < 6.0 % Goal: < 7.0 %Additional Action Suggested: > 8.0 %Note: Hemoglobin A1c results are invalid for patients with abnormal amounts of HbF. Blood transfusions may impact the HbA1c concentration in the patient sample. Estimated Average Glucose 114 mg/dL [facility] Comment:eAG = Estimated ave rage glucose which is %A1C expressed asaverage glucose, using the formula of the E9S-[id number] Glucose study (ADAG), Diabetes Care, Vol.31,#8,Oct. 2007 Blood Venous blood specimen / Unknown 01/30/2025 10:18 AM EST 01/30/2025 11:40 AM EST us Emily Johnson MD LAB BLOOD ORDERABLES Final Result Performing Organization Address [facility] Co de Phone Number [facility] [address] [place] [phone] * (ABNORMAL) Lipid Panel, Standard (01/30/2025 10:18 AM EST) Triglycerides 56 <150 mg/dL [facility] Comment:Desirable Triglyceri de: less than 150 mg/dLBorderline High Triglyceride 150-199 mg/dLHigh Triglyceride: 200-499 mg/dLVery High Triglyceride: greater than or equal to 5OO mg/dL Cholesterol 202(H) <200 mg/dL [facility] Comment:Desirable Cholestero l: less than 200 mg/dLBorderline High Cholesterol: 200-239 mg/dLHigh Cholesterol: greater than 239 mg/dL LDL Cholesterol Calculated 97 <100 mg/dL [facility] Comment:Desirable LDL: less than 100 mg/dLNear Optimal/Above Optimal LDL: 110- 129 mg/dLBorderline High LDL: 130-159 mg/dLHigh LDL: 160-189 mg/dLVery High LDL: greater than or equal to 190 mg/dL HDL Cholesterol 94 >40 mg/dL [facility] Comment:Desirable HDL: great er than 40 mg/dL Note: This HDL assay may give artificially low results in patients with liver disease. Blood Venous blood specimen / Unknown 01/30/2025 10:18 AM EST 01/30/2025 11:40 AM EST us Emily Johnson MD LAB BLOOD ORDERABLES Final Result [facility] [address] [place], [place] [phone] * (ABNORMAL) Comprehensive Metabolic Panel (01/30/2025 10:18 AM EST) Sodium 140 135 - 145 mmol/L [facility] Potassium 4.7 3.3 - 5.1 mmol/L [facility] Chloride 95(L) 96 - 108 mmol/L [facility] Carbon Dioxide 37(H) 22 - 29 mmol/L [facility] Anion Gap 13 12 - 20 [facility] Urea Nitrogen (BUN) 15 9 - 16 mg/dL [facility] Creatinine, Serum 0.90 0.5 - 1.4 mg/dL [facility] Estimated Glomerular Filt Rate >60 [facility] Comment:Chronic Kidney Disea se: Estimated GFR < 60 mL/min/[id number] Kidney Disease: Estimated GFR < 15 mL/min/1.73m2 Glucose 97 60 - 115 mg/dL [facility] Calcium 9.6 8.4 - 10.2 mg/dL [facility] Bilirubin, Total 0.4 0.0 - 1.0 mg/dL [facility] Aspartate Amino Transferase 19 5 - 31 U/L [facility] Alanine Aminotransferase 11 0 - 31 U/L [facility] Total Protein 8.0 6.5 - 8.0 g/dL [facility] Albumin Level 4.4 3.5 - 5.0 g/dL [facility] Alkaline Phosphatase 106 39 - 117 U/L [facility] Blood Venous blood specimen / Unknown 01/30/2025 10:18 AM EST 01/30/2025 11:40 AM EST us Emily Johnson MD LAB BLOOD ORDERABLES Final Result Performing Organization Address City/State/[facility] Co de Phone Number [facility] [address] [place] [address] [phone] from Last 3 Months Insurance [facility] (O D-SNP) [place]USE [id number] Care Teams Colorectal Surgeon Relationship Specialty Start Date End Date Emily Gill MD [address] [place] [phone] PCP - General Internal Medicine 02/22/25
--- OUTSIDE RECORDS SUMMARY | 2025-03-12 15:29 | XMS_ITS | Clinical Summary ---
Author Organization [facility] Address [address] [place] [address] Phone Care Team Providers Care Log Hooker Name Role Phone Emily Gill MD Primary [...] mouth 1 (one) time each day. 03/03/20 Active cyanocobalamin (VITAMIN B-12) 500 mcg tablet Take 1 tablet (500 mcg total) by mouth 1 (one) time each day. Active cholecalciferol (VITAMIN D-3) 25 mcg (1,000 unit) tablet Take 2 tablets (2,000 Units total) by mouth 1 (one) time each day. Active apixaban (ELIQUIS) 5 mg tablet Take 1 tablet (5 mg total) by mouth every 12 (twelve) hours. 180 tablet 2 05/17/19 25 Active zolpidem (AMBIEN) 5 mg tablet Take 1 tablet (5 mg total) by mouth at bedtime as needed. 08/02/19 25 Active atorvastatin (LIPITOR) 40 mg tabletIndications:Pure hypercholesterolemia Take 1 tablet (40 mg total) by mouth 1 (one) time each day. 90 each 2 09/07/19 25 Active dilTIAZem CD (CARDIZEM CD) 120 mg 24 hr capsuleIndications:Parox ysmal atrial fibrillation (CMS/HCC V24, CMS/HCC V28) Take 1 capsule (120 mg total) by mouth 2 (two) times a day. 60 each 11 09/07/19 25 026 Active furosemide (LASIX) 20 mg tabletIndications:Locali zed edema Take 1 tablet (20 mg total) by mouth 1 (one) time each day. 30 each 11 09/07/19 25 026 Active omeprazole (PriLOSEC) [address] capsule TAKE 1 CAPSULE BY MOUTH EVERY DAY 90 capsule 1 11/03/19 25 Active Active Problems Problem Noted Date Diagnosed Date Localized edema 09/06/2024 Assessment & Plan (09/06/2024 7:05 PM EDT): The patient was noted to have evidence of lower extremity edema. She has pitting edema +1 in the lower extremities bilaterally. The patient states that her lower extremity edema is more pronounced towards the end of her day. At this point, we will start the patient on furosemide 20 mg orally daily. Will order a chemistry panel to be done 1 week after the initiation of the furosemide. Will also include a BNP level. Will order an echocardiogram to rule out any underlying structural heart disease associated with her lower extremity edema. Will also order a lower extremity venous insufficiency study to rule out venous insufficiency as a cause of her symptoms. Orders: furosemide (LASIX) 20 mg tablet; Take 1 tablet (20 mg total) by mouth 1 (one) time each day. Vascular US duplex lower extremity venous insufficiency bilateral; Future Transthoracic echocardiogram (TTE) complete with PRN contrast, bubble, strain, and 3D order panel; Future perflutren lipid microsphere (DEFINITY) 1.3 mL in sodium chloride 0.9% 8.7 mL injection Comprehensive metabolic panel; Future Thyroid stimulating hormone; Future B-type natriuretic peptide; Future Coronary artery disease invo lving [place] coronary artery of [place] heart without angina pectoris 06/11/2024 Assessment & Plan (09/06/2024 7:05 PM EDT): The patient has a history of nonobstructive coronary artery disease. Currently, the patient denies any chest pain with exertion. The patient continues on secondary preventive therapy for CAD, including: Atorvastatin and diltiazem. She is also on antithrombotic therapy with Eliquis. Will continue current therapy. Assessment & Plan (06/11/2024 8:43 PM EDT): [...] banded Atrial fibrillation 02/11/2023 Assessment & Plan (09/06/2024 7:05 PM EDT): The patient has a history of paroxysmal atrial fibrillation. The patient continues on rate control therapy with diltiazem. Also, the patient has an increased SWB1YR0- VASc score and continues on anticoagulation therapy with apixaban. No episodes of abnormal bleeding have been noted. Will continue current therapy. Orders: dilTIAZem CD (CARDIZEM CD) 120 mg 24 hr capsule; Take 1 capsule (120 mg total) by mouth 2 (two) times a day. Transthoracic echocardiogram (TTE) complete with PRN contrast, bubble, strain, and 3D order panel; Future perflutren lipid microsphere (DEFINITY) 1.3 mL in sodium chloride 0.9% 8.7 mL injection Comprehensive metabolic panel; Future Thyroid stimulating hormone; Future Magnesium; Future B-type natriuretic peptide; Future Assessment & Plan (06/11/2024 8:43 PM EDT): [...] pharmacy. Also, the patient has an elevated NUV3AN1-DKJh score and continues on anticoagulation therapy with [...] 08/01/2020 External hemorrhoid 2018 Pure hypercholesterolemia 01/12/2017 Assessment & Plan (09/06/2024 7:05 PM EDT): The patient has a history of hyperlipidemia. The patient is currently on atorvastatin 40 mg orally daily. We will order a new lipid panel to evaluate the patient's current lipid control and determine if any adjustment are needed in the lipid lowering therapy. Orders: atorvastatin (LIPITOR) 40 mg tablet; Take 1 tablet (40 mg total) by mouth 1 (one) time each day. Anxiety 03/02/2016 Asthma 02/22/2015 Overview (02/27/2024): Patient follows with Dr. Hamilton but last seen 2011 HTN (hypertension) 08/17/2014 Assessment & Plan (09/06/2024 7:05 PM EDT): The patient has a history of arterial hypertension. The patient's blood pressure today was noted to be well controlled. We'll continue the current antihypertensive medication regimen. Assessment & Plan (06/11/2024 8:43 PM EDT): [...] in September 2023. She was treated at [facility]. At the time, it was thought that her syncope was secondary to benzodiazepine use. However, the patient does have a history of arrhythmias in the form of paroxysmal atrial fibrillation. As such, cardiac monitoring is indicated. Will proceed with a 30-day ambulatory monitoring analyst to rule out any arrhythmias or pauses that may have been associated with her episode of syncope. Will also order an echocardiogram to rule out any underlying structural heart disease given her episode of syncope. Chronic respiratory failure 09/24/2023 04/17/2024 Chest pain 05/12/2023 04/17/2024 Overview (02/27/2024): Negative ETT 07/06 Hiatal hernia 04/29/2010 06/11/2024 Overview (02/27/2024): 4 cm hiatal hernia at EGD 04/29/2010. Encounters Date Type Department Care Team Description 02/02/2025 8:30 AM EST Ancillary Procedure [facility] - [address] [place] [address] Paroxysmal atrial fibrillation (CMS/HCC V24, CMS/HCC V28); Localized edema from Last 3 Months Immunizations Immunization Administration Dates Next Due H1N1 Inj Preservative [...] subun it RSVpreF, 0.5mL, Preservative Free (ABRYSVO) 50yo and older or 32 through 36 wks [...] repeat due to age COLONOSCOPY 10/26/2016 At [facility], sigmoid diverticulosis, no polyps. [...] Depression GI bleed Anxiety DX:Anxiety Atrial fibrillation (CMS/HCC V24, CMS/HCC V28) Fibromyalgia Vitamin D deficiency Osteopenia Pulmonary [...] Orientation Straight 03/24/2024 3: 57 PM EST Last Filed Vital Signs Vital Sign Reading Time Taken Comments Blood Pressure 158/82 02/02/2025 10:12 AM EST Pulse 85 09/06/2024 2:13 PM EDT Temperature 36.1 C (96.9 F) 08/10/2024 10:08 AM EDT Respiratory Rate 16 08/10/2024 10:08 AM EDT Oxygen Saturation 98% 09/06/2024 2:13 PM EDT Inhaled Oxygen Concentration - - Weight 76.7 kg (169 lb) 02/02/2025 10:12 AM EST Height 152.4 cm (5') 02/02/2025 10:12 AM EST Body Mass Index 33.01 02/02/2025 10:12 AM EST Plan of Treatment Upcoming Encounters Date Type Department Care Team (Late st Contact Info) Description 04/20/2025 10:30 AM EST Consult Vascular Surgery - [place] [address] [place] [id number] Kaylee Sullivan PA [address] [place] [address] 09/03/2025 10:40 AM EDT Office Visit Gastroenterology - [address] [place] [phone] Inocencia Pratt, KALYAN [address] [place] [address] Health Maintenance Due Date Last Done Comments Drug Screen 1945 Non-Opioid Controlled Substance Agreement 1945 Social Influencers of Health Screening 02/21/2022 Depression Screening 03/15/2024 Falls Risk Assessment 10/21/2024 10/22/2023 Medicare Annual Wellness Visit 10/21/2024 10/22/2023 Osteoporosis Screening (Bone Density Screening) 03/18/2025 03/18/2023, 10/02/2020, 02/22/2018 COVID-19 Vaccine (8 - Pfizer risk 2024- season) 2025 11/22/2024, 12/08/2023, 01/30/2022, Additional history exists Hypertension/CHF/CAD Annual BMP Blood Test 01/30/2026 01/30/2025, 08/10/2024, 04/25/2024, Additional history exists DTaP,Tdap,and Td Vaccines (3 - Td or Tdap) 12/16/2028 12/16/2018, 06/02/2005 Cholesterol Screening (Lipid Panel) 01/30/2030 01/30/2025, 03/14/2024, 03/01/2024 Pneumococcal Vaccine: 50+ Years Completed 12/16/2018, 05/10/2018, 03/02/2016, Additional history exists Zoster Vaccines Completed 10/26/2019, 01/26/2019 RSV Immunization Adult Patients Completed 12/08/2023 Influenza Vaccine Completed 11/22/2024, , 11/17/2022, Additional history exists Hepatitis C Screening Completed 01/30/2025, 020 HIB Vaccines Aged Out No longer eligi [...] Procedure Name Priority Date/Time Associated Diagnosis Comments COMPREHENSIVE METABOLIC PANEL Routine 08/10/2024 10:54 AM EDT Prediabetes Primary hypertension LIPID PANEL WITH REFLEX TO DIRECT LDL [...] Relevant to Health Maintenance Results * (ABNORMAL) Comprehensive metabolic panel (08/10/2024 10:54 AM EDT) Sodium 136 133 - 145 mmol/L LAB CHEMISTRY METHOD 08/10/2024 3:[address] [facility] Potassium 4.4 3.5 - 5.5 mmol/L LAB CHEMISTRY METHOD 08/10/2024 3:[address] [facility] Chloride 97 96 - 110 mmol/L LAB CHEMISTRY METHOD 08/10/2024 3:25 PM [facility] CO2 37(H) 21 - 32 mmol/L LAB CHEMISTRY METHOD 08/10/2024 3:25 PM [facility] Anion Gap 2(L) 3 - 11 LAB CHEMISTRY METHOD 08/10/2024 3:25 PM [facility] Glucose 92 70 - 100 mg/dL LAB CHEMISTRY METHOD 08/10/2024 3:25 PM [facility] BUN 15 5 - 25 mg/dL LAB CHEMISTRY METHOD 08/10/2024 3:25 PM [facility] Creatinine 0.87 0.50 - 1.10 mg/dL LAB CHEMISTRY METHOD 08/10/2024 3:25 PM [facility] eGFR 68 >=60 mL/min/1. 73m2 LAB CHEMISTRY METHOD 08/10/2024 3:25 PM [facility] Comment:Calculation based on the Chronic Kidney Disease Epidemiology Collaboration (CKD-EPI) equation refit without adjustment for race. BUN/Creatinine Ratio 17.2 LAB CHEMISTRY METHOD 08/10/2024 3:25 PM [facility] Calcium 9.8 8.5 - 10.5 mg/dL LAB CHEMISTRY METHOD 08/10/2024 3:25 PM [facility] AST (SGOT) 16 10 - 42 unit/L LAB CHEMISTRY METHOD 08/10/2024 3:25 PM [facility] ALT (SGPT) 19 10 - 60 unit/L LAB CHEMISTRY METHOD 08/10/2024 3:25 PM [facility] Alkaline Phosphatase 101 42 - 121 unit/L LAB CHEMISTRY METHOD 08/10/2024 3:25 PM [facility] Total Protein 7.8 6.0 - 8.0 g/dL LAB CHEMISTRY METHOD 08/10/2024 3:25 PM [facility] Albumin 3.8 3.2 - 5.0 g/dL LAB CHEMISTRY METHOD 08/10/2024 3:[address] [facility] Total Bilirubin 0.3 0.0 - 1.4 mg/dL LAB CHEMISTRY METHOD 08/10/2024 3:[address] [facility] Blood Venous blood specimen / Unknown Venipuncture / Unknown 08/10/2024 10:54 AM EDT 08/10/2024 10:54 AM EDT us Millicent GRIFFITHS LAB BLOOD ORDERABLES Final Re sult [facility] [address] [place] [address], [place] [phone] * (ABNORMAL) Lipid panel with reflex to direct LDL (03/14/2024 1:38 PM EST) Cholesterol 216(H) 0 - 200 mg/dL LAB CHEMISTRY METHOD 03/14/2024 5:26 PM [facility] Triglycerides 95 0 - 150 mg/dL LAB CHEMISTRY METHOD 03/14/2024 5:[address] [facility] HDL 113 >=40 mg/dL LAB CHEMISTRY METHOD 03/14/2024 5:[address] [facility] LDL Calculated 84 0 - 100 mg/dL LAB CHEMISTRY METHOD 03/14/2024 5:[address] [facility] VLDL Cholesterol Titi 19 mg/dL LAB CHEMISTRY METHOD 03/14/2024 5:26 PM [facility] Non HDL Chol. (LDL+VLDL) 103 <145 mg/dL LAB CHEMISTRY METHOD 03/14/2024 5:26 PM [facility] Chol/HDL Ratio 1.9 0.0 - 4.4 LAB CHEMISTRY METHOD 03/14/2024 5:26 PM [facility] Blood Venous blood specimen / Unknown Venipuncture / Unknown 03/14/2024 1:38 PM EST 03/14/2024 1:38 PM EST us Phillip Cabral MD LAB BLOOD ORDERABLES F inal Result FRANCISCO J ARCEO [place] ([facility]) [facility] [address] [place] [address], [place] [phone] * DXA BONE DENSITY STUDY 1+ SITS [...] spine and left hip were obtained using [employer] W (S/N [id number]). COMPARISON: October 02, 2020 FINDINGS: L1-L2-L4 BMD: [...] lumbar spineand left hip were obtained using [employer] W (S/N [id number]). COMPARISON: October 02, 2020 FINDINGS: L1-L2-L4 BMD: [...] below -2.5 SD Osteoporosis Estrellita Meadows MD [facility] DXA PROCEDURES Final Result from Last 3 Months or Most Recently Relevant to Health Maintenance Insurance JAIDA LACY [id number] [facility] [employer] Member Subscriber Plan / Payer (Ef fective 2013-Present) Name:Eyal Amarilys Relation to Subscriber:Self Name:Eyal Amarilys Payer ID:[id number] Group ID:[id number] Type:Not on file Address: [place] [address] [address] [id number] Care Teams Log Hooker Relationship Specialty Start Date End Date Emily Gill MD [address] [place] [address] [place] [phone] PCP - General Internal Medicine 02/02/25
== END 2025-03-12 14:18 | disposition home or self-care (01) ==
PROVIDERS: PCP Internal Medicine; Visit Provider Internal Medicine
DX: I25.10 Atherosclerotic heart disease of native coronary artery without angina pectoris (principal); I48.0 Paroxysmal atrial fibrillation
CPT/HCPCS: 93010; 99204; G2211

== ENCOUNTER → 2025-03-12 13:23 | Outpatient (BNVA) | payer OTHER, SELFPAY | PROVIDERS: PCP Internal Medicine; Visit Provider Internal Medicine | DX: I25.10 Atherosclerotic heart disease of native coronary artery without angina pectoris (principal); I48.0 Paroxysmal atrial fibrillation; Z79.899 Other long term (current) drug therapy | CPT/HCPCS: 93005; 99202 ==